=== PATIENT | female | born 1945 | race Two or more races ===

== ENCOUNTER 2019-09-21 09:33 | Inpatient (IN) | payer OTHER ==
--- NOTE | 2019-09-21 09:48 | PDOC ---
History of Present Illness - General Chief Complaint: Respiratory Stated Complaint: cough/bodyaches History Source: Patient Exam Limitations: Language Barrier ([id number]) - History of Present Illness Initial Comments: 74 yo F with a hx of Hep C, cirrhosis, pancytopenia, splenomegaly, and HTN who was recently admitted on 06/27/2019 with COVID 19+ with imaging consistent with b/l PNA presents to the emergency department with abdominal pain, leg pain, and SOB that has been ongoing since yesterday. Per the patient, she was admitted to [facility] with COVID symptoms. She since has not recovered per the patient. The patient has been home. She endorses having sharp stomach pain that is located throughout the abdomen that is constant with associative symptom of nausea, but denies vomiting. In addition, the patient had her last bowel movement today and denies hematochezia, diarrhea, constipation, and melena. She endorses SOB that worsens with laying down flat and having chest pain with deep breaths. Denies ta paris anti-coagulations. Allergies: NKDA Past History - Medical History Allergies/Adverse Reactions: Allergies Allergy/AdvReac Type Severity Reaction Status Date / Time No Known Allergies Allergy Verified 06/27/19 00:33 Home Medications: Ambulatory Orders Amino Acids/Protein Hydrolys [Prosource No Carb Liquid Pkt] 30 ml PO BID@0800,1730 #60 packet 07/16/19 Amlodipine Besylate [Norvasc -] 10 mg PO DAILY #30 tablet 07/16/19 Ascorbic Acid [Vitamin C -] 500 mg PO BID #60 tablet 07/16/19 Cholecalciferol (Vitamin D3) [Vitamin D3 -] 1,000 unit PO DAILY #30 tab 07/16/19 Collagenase Clostridium Hist. [Santyl -] 1 applic TP DAILY #1 tube 07/16/19 Docusate Sodium [Colace -] 100 mg PO TID #90 capsule 07/16/19 Multivitamins [Multivit ([facility] Formulary)] 1 tab PO DAILY #30 tab 07/16/19 Zinc Sulfate [Orazinc -] 220 mg PO DAILY #30 capsule 07/16/19 propRANOLol HCL [Inderal -] 10 mg PO TID #90 tablet 07/16/19 Albuterol Sulfate Inhaler - [Ventolin HFA Inhaler -] 2 puff IH Q4H PRN inhaler 09/25/19 Collagenase Clostridium Hist. [Santyl -] 1 applic TP DAILY tube 09/25/19 Fluconazole 400 mg PO DAILY #30 tablet 09/25/19 Nadolol [Corgard -] 20 mg PO DAILY #30 tablet 09/25/19 Pantoprazole Sodium [Protonix -] 40 mg PO DAILY tablet.ec 09/25/19 Polyethylene Glycol 3350 [Miralax 119 gm Btl -] 17 gm PO TID bottle 09/25/19 Valacyclovir HCl [Valtrex] 500 mg PO BID #60 tablet 09/25/19 levoFLOXacin [Levaquin -] 500 mg PO DAILY@0600 #30 tablet 09/25/19 COPD: No HTN: Yes Liver Disease: Yes - Surgical History Gastric Stapling: No Lung Surgery: No - Immunization History Immunization Up to Date: No - Psycho-Social/Smoking History Smoking History: Never smoked Have you smoked in the past 12 months: No Information on smoking cessation initiated: No - Substance Abuse Hx (Audit-C & DAST Scrn) How often the patient has a drink containing alcohol: Never Score: In Men: 4 or > Positive; In Women: 3 or > Positive: 0 Screen Result (Pos requires Nsg. Audit-10AR): Negative In the last yr the pt used illegal drug/Rx for NonMed reason: No Score: Yes response is considered Positive: 0 Screen Result (Positive result requires Nsg. DAST-10): Negative Review of Systems - Review of Systems Able to Perform ROS?: Yes Is the patient limited Spanish proficient: No Constitutional: Yes: Weakness. No: Chills, Diaphoresis, Fever HEENTM: No: Eye Pain, Ear Pain, Nose Pain, Throat Pain Respiratory: Yes: Shortness of Breath, SOB at Rest. No: Cough Cardiac (ROS): Yes: Edema (b/l lower extremity swelling). No: Chest Pain, Lightheadedness ABD/GI: Yes: Nausea, Abdominal cramping. No: Constipated, Diarrhea, Rectal Bleeding, Vomiting, Tarry Stools : No: Dysuria, Hematuria Musculoskeletal: No: Back Pain, Joint Pain, Neck Pain Integumentary: No: Rash Neurological: No: Headache Psychiatric: Yes: Change in Appetite (decreased appetite) Endocrine: No: Unexplained Weight Loss Hematologic/Lymphatic: No: Anemia *Physical Exam - Vital Signs Last Vital Signs Temp Pulse Resp BP Pulse Ox 98 F 71 16 151/75 96 09/21/19 09:36 09/21/19 09:36 09/21/19 09:36 09/21/19 09:36 09/21/19 09:36 - Physical Exam General Appearance: Yes: Nourished, Appropriately Dressed. No: Apparent Distress, Intoxicated HEENT: positive: EOMI, PRISCILLA, Normal Voice, Symmetrical, Pharynx Normal, Hearing Grossly Normal. negative: Pale Conjunctivae, Scleral Icterus (R), Scleral Icterus (L), Muffled/Hoarse voice, Pharyngeal Erythema, Tonsillar Exudate, Tonsillar Erythema, Nasal Congestion, Rhinorrhea, Sinus Tenderness, Excessive drooling Neck: positive: Trachea midline, Supple. negative: Tender, Lymphadenopathy (R), Lymphadenopathy (L), Tender lateral, Tender midline Respiratory/Chest: positive: Lungs Clear, Normal Breath Sounds. negative: Chest Tender, Respiratory Distress, Accessory Muscle Use, Crackles, Rales, Rhonchi, Stridor, Wheezing Cardiovascular: positive: Regular Rhythm, Regular Rate, S1, S2. negative: Systolic Murmur Gastrointestinal/Abdominal: positive: Normal Bowel Sounds, Tender (mild LLQ tenderness), Flat, Soft Lymphatic: negative: Adenopathy Musculoskeletal: positive: Normal Inspection. negative: CVA Tenderness, Vertebral Tenderness Extremity: positive: Normal Capillary Refill, Normal Range of Motion, Pelvis Stable, Swelling (bilateral le), Other (chronic wound noted on the plantar surface of the left foot. stage 2 ulcer). negative: Normal Inspection, Tender Integumentary: positive: Normal Color, Dry, Warm Neurologic: positive: debt collection specialist II-XII NML intact, Fully Oriented, Alert, Normal Mood/Affect, Normal Response, Motor Strength 5/5. negative: EOM Palsy, Sensory Deficit ED Treatment Course - LABORATORY CBC & Chemistry Diagram: 09/25/19 06:50 09/25/19 06:50 Medical Decision Making - Medical Decision Making 74 yo F with a hx of Hep C, cirrhosis, pancytopenia, splenomegaly, and HTN who was recently admitted on 06/27/2019 with COVID 19+ with imaging consistent with b/l PNA presents to the emergency department with abdominal pain, leg pain, and SOB that has been ongoing since yesterday. Initial vitals: Initial Vital Signs Temp Pulse Resp BP Pulse Ox 98 F 71 16 151/75 96 09/21/19 09:36 09/21/19 09:36 09/21/19 09:36 09/21/19 09:36 09/21/19 09:36 Work up; patient presents to the emergency department with multitude of symptoms that began yesterday ddx: DVT vs chf exacerbation vs pna vs covid related complications vs pe vs gastritis vs duodenitis vs diverticulitis vs colitis vs cystitis vs uti vs neph rolithiasis Laboratory Tests 09/21/19 09/21/19 09/21/19 10:36 10:44 10:49 WBC 1.6 L* RBC 3.21 L Hgb 9.2 L Hct 28.5 L D MCV 88.6 MCH 28.7 MCHC 32.4 RDW 16.6 H Plt Count 55 L MPV 7.1 L D Absolute Neuts (auto) 1.2 L Neutrophils % 73.2 Neutrophils % (Manual) 76.5 Band Neutrophils % 0.0 Lymphocytes % 13.4 D Lymphocytes % (Manual) 15.3 D Monocytes % 9.4 Monocytes % (Manual) 3 L Eosinophils % 3.3 Eosinophils % (Manual) 2.1 Basophils % 0.7 Basophils % (Manual) 0.0 Myelocytes % (Man) 2 D Promyelocytes % (Man) 0 Blast Cells % (Manual) 0 Nucleated RBC % 0 Metamyelocytes 1 D Hypochromia 0 Platelet Estimate Decreased Polychromasia 0 Poikilocytosis 0 Anisocytosis 0 Microcytosis 0 Macrocytosis 0 PT with INR INR D-Dimer 2616 H Sodium 141 Potassium 3.6 Chloride 110 H Carbon Dioxide 24 Anion Gap 7 L BUN 12.2 Creatinine 0.8 Est GFR (CKD-EPI)AfAm 83.00 Est GFR (CKD-EPI)NonAf 71.61 Random Glucose 116 H Lactic Acid Calcium 8.4 L Magnesium 2.3 Total Bilirubin 1.0 AST 39 H ALT 23 Alkaline Phosphatase 113 Creatine Kinase 61 Troponin I < 0.02 Total Protein 8.1 Albumin 3.0 L Urine Color Urine Appearance Urine pH Ur Specific Faber Urine Protein Urine Glucose (UA) Urine Ketones Urine Blood Urine Nitrite Urine Bilirubin Urine Urobilinogen Ur Leukocyte Esterase COVID-19 (ANAIS) 09/21/19 09/21/19 09/21/19 10:49 10:49 11:40 WBC RBC Hgb Hct MCV MCH MCHC RDW Plt Count MPV Absolute Neuts (auto) Neutrophils % Neutrophils % (Manual) Band Neutrophils % Lymphocytes % Lymphocytes % (Manual) Monocytes % Monocytes % (Manual) Eosinophils % Eosinophils % (Manual) Basophils % Basophils % (Manual) Myelocytes % (Man) Promyelocytes % (Man) Blast Cells % (Manual) Nucleated RBC % Metamyelocytes Hypochromia Platelet Estimate Polychromasia Poikilocytosis Anisocytosis Microcytosis Macrocytosis PT with INR 16.00 H INR 1.35 H D-Dimer Sodium Potassium Chloride Carbon Dioxide Anion Gap BUN Creatinine Est GFR (CKD-EPI)AfAm Est GFR (CKD-EPI)NonAf Random Glucose Lactic Acid 0.8 Calcium Magnesium Total Bilirubin AST ALT Alkaline Phosphatase Creatine Kinase Troponin I Total Protein Albumin Urine Color Yellow Urine Appearance Clear Urine pH 6.5 D Ur Specific Faber 1.020 Urine Protein 3+ H Urine Glucose (UA) Negative Urine Ketones Negative Urine Blood 1+ H Urine Nitrite Negative Urine Bilirubin Negative Urine Urobilinogen 0.2 Ur Leukocyte Esterase Negative COVID-19 (ANAIS) 09/21/19 15:18 WBC RBC Hgb Hct MCV MCH MCHC RDW Plt Count MPV Absolute Neuts (auto) Neutrophils % Neutrophils % (Manual) Band Neutrophils % Lymphocytes % Lymphocytes % (Manual) Monocytes % Monocytes % (Manual) Eosinophils % Eosinophils % (Manual) Basophils % Basophils % (Manual) Myelocytes % (Man) Promyelocytes % (Man) Blast Cells % (Manual) Nucleated RBC % Metamyelocytes Hypochromia Platelet Estimate Polychromasia Poikilocytosis Anisocytosis Microcytosis Macrocytosis PT with INR INR D-Dimer Sodium Potassium Chloride Carbon Dioxide Anion Gap BUN Creatinine Est GFR (CKD-EPI)AfAm Est GFR (CKD-EPI)NonAf Random Glucose Lactic Acid Calcium Magnesium Total Bilirubin AST ALT Alkaline Phosphatase Creatine Kinase Troponin I Total Protein Albumin Urine Color Urine Appearance Urine pH Ur Specific Faber Urine Protein Urine Glucose (UA) Urine Ketones Urine Blood Urine Nitrite Urine Bilirubin Urine Urobilinogen Ur Leukocyte Esterase COVID-19 (ANAIS) Not detected UA is negative for acute infection d-dimer is elevated negative troponin patient noted to be leukopenic, which is consistent with her previous lab findings duplex US is negative for DVT. CTAP shows hepatic cirrhosis with extensive cvarices with a 3x2.3 cm splenic artery aneurysm. 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 Chest CT shows a pericardial effusion in moderate size. This is mildly increased since her previous study. Mildly prominent main pulmonary diameter suggestive of increased pulmonary arterial pressure. Mildly increased bilateral upper lung field groundglass attenuation is noted. Patient to be admitted for lethargy in the setting of leukopenia and s/p covid infection. The patient will be admitted to received a CTA of the chest tomorrow. Dispo: Admit Discharge - Discharge Information Problems reviewed: Yes Clinical Impression/Diagnosis: COVID-19 virus infection - Follow up/Referral - Patient Discharge Instructions - Post Discharge Activity
[2019-09-21] MEDS ORDERED: ACETAMINOPHEN 325 MG TABLET (FP) PO ONE (10:33)
[2019-09-21 11:24] LABS: BASO % 0.7 % (0-2.0); EOS % 3.3 % (0-4.5); HEMATOCRIT 28.5 % (32.4-45.2); HEMOGLOBIN 9.2 GM/dL (10.7-15.3); LYMPH % 13.4 % (8-40); MCH 28.7 pg (25.7-33.7); MCHC 32.4 g/dl (32.0-36.0); MEAN CELL VOLUME 88.6 fl (80-96); MEAN PLT VOLUME 7.1 fl (7.5-11.1); MONO % 9.4 % (3.8-10.2); NEUT % 73.2 % (42.8-82.8); PLATELET COUNT 55 K/MM3 (134-434); RBC 3.21 M/mm3 (3.60-5.2); RDW 16.6 % (11.6-15.6)
[2019-09-21 11:29] LABS: WHITE BLOOD COUNT 1.6 K/mm3 (4.0-10.0)
[2019-09-21 11:33] LABS: INR 1.35 (0.83-1.09)
[2019-09-21 12:02] LABS: ALK PHOS 113 U/L (45-117); ANION GAP 7 MMOL/L (8-16); BLOOD UREA NITROGEN 12.2 mg/dL (7-18); CALCIUM 8.4 mg/dL (8.5-10.1); CHLORIDE 110 mmol/L (98-107); CO2 24 mmol/L (21-32); CREATININE 0.8 mg/dL (0.55-1.3); GLUCOSE,RANDOM 116 mg/dL (74-106); MAGNESIUM 2.3 mg/dL (1.8-2.4); POTASSIUM 3.6 mmol/L (3.5-5.1); SGOT/AST 39 U/L (15-37); SGPT/ALT 23 U/L (13-61); SODIUM 141 mmol/L (136-145); TOT PROT 8.1 g/dl (6.4-8.2)
[2019-09-21 13:47] LABS: PH,URINE 6.5 (5.0-8.0); URINE APPEARANCE CLEAR; URINE BILIRUBIN NEGATIVE (NEGATIVE); URINE COLOR YELLOW; URINE GLUCOSE (UA) NEGATIVE (NEGATIVE); URINE KETONE NEGATIVE (NEGATIVE); URINE NITRITE NEGATIVE (NEGATIVE); URINE PROTEIN 3+ (NEGATIVE); URINE UROBILINOGEN 0.2 mg/dL (0.2-1.0)
[2019-09-21 13:48] LABS: URINE LEUK ESTERASE NEGATIVE (NEGATIVE)
--- NOTE | 2019-09-21 14:15 | PDOC ---
Documentation entered by Brea Dillon SCRIBE, acting as scribe for Yoni Cheung MD. Yoni Cheung MD: This documentation has been prepared by the miguel angelibSantana barrera Maria, SCRIBE, under my direction and personally reviewed by me in its entirety. I confirm that the documentation accurately reflects all work, treatment, procedures, and medical decision making performed by me. Attending Attestation - Resident Resident Name: Ashutosh Cornejo - ED Attending Attestation I have performed the following: I have examined & evaluated the patient, The case was reviewed & discussed with the resident, I agree w/resident's findings & plan, Exceptions are as noted - HPI HPI: 09/21/19 10:34 The patient is a 74 year old female with a significant past medical history of HTN, Hep C, cirrhosis, pancytopenia, splenomegaly, COVID + 06/27/2019 who presents to the emergency department with 1 day of shortness of breath. As per patient, she reports endorsing orthopnea, and chest pain when she is SOB and takes deep breaths. Patient also endorses sharp, constant LUQ abdominal pain with associated nausea. Patient reports LBM was this morning. Patient notes edema and pain in her legs, R>L. Denies taking any blood thinners. Denies fevers or chills. She denies recent vomiting, diarrhea or constipation. She denies recent dysuria, frequency, urgency or hematuria. Allergies: NKA, NKDA Surgical History: None reported Social History: No toxic habits PCP: Dr. Clark - Physicial Exam PE: 09/21/19 12:35 GENERAL: The patient is awake, alert, and fully oriented, Nontoxic - in no acute distress. HEAD: Normocephalic, atraumatic. EYES: extraocular movements intact, sclera anicteric, conjunctiva clear. ENT: Normal voice, Moist mucous membranes. NECK: Normal range of motion, supple LUNGS: Breath sounds equal, clear to auscultation bilaterally. No wheezes, no rhonchi, no rales. HEART: Regular rate and rhythm, normal S1 and S2 without murmur, rub or gallop. ABDOMEN: splenomegaly, mild ttp to LLQ, no rebound/guardng, no cva tenderness EXTREMITIES: Normal range of motion, bl LE edema NEUROLOGICAL: No facial assymetry, Normal speech, moving all 4 extremiies spontneouly PSYCH: Normal mood, normal affect. SKIN: Warm, Dry, normal turgor, - Medical Decision Making 09/21/19 10:35 hx of hcv, covid, presents with worsening sob, abd pain, leg swelling for the past day. pt notes mild sob/pleuritic cp with inhallatin. chronic wound on plantar aspect of r foot not on ac L UQ tenderness venous insufficeincy/chronic chnges, stage 2 ulcer on plantar L foot 09/21/19 15:29 consider hypercoagulable disorder secondary to covid ct chest noted for Discharge - Discharge Information Problems reviewed: Yes Clinical Impression/Diagnosis: COVID-19 virus infection Condition: Stable Disposition: HOME - Follow up/Referral - Patient Discharge Instructions - Post Discharge Activity
[2019-09-21 14:58] LABS: ANISOCYTOSIS 0; MACROCYTOSIS 0; PLATELET ESTIMATE DECREASED
--- NOTE | 2019-09-21 16:32 | HP ---
Admitting History and Physical - Primary Care Physician PCP: Gemma Carrion - Admission Chief Complaint: sob and abd pain for 1 day History of Present Illness: 74 yo F with a hx of Hep C, cirrhosis, pancytopenia, splenomegaly, and HTN who was recently admitted on 06/27/2019 with COVID 19+ with imaging consistent with b/l PNA presents to the emergency department with abdominal pain, leg pain, and SOB that has been ongoing since yesterday. Per the patient, she was admitted to [facility] with COVID symptoms. She since has not recovered per the patient. The patie nt has been home. She endorses having sharp stomach pain that is located pain in the stomach? yes. sharp pain, throughout the stomach, since yesterday, pain has constant, nausea positive, vomiting negative. dysuria? no, hematuyuria? no. diarrhea? no when is last bowel movement-today.no blood chest pain? no. only when feeling sob. sob gets worse when she lays down. chest pain with deep breaths? yes. warm sensation in legs warm sensation i n the stomach SOB swollen in the throat. symptoms have been ongoing for 1 day. leg right is warmer than the left. they feel swollen and pain. taking blood thinners? no History Source: Family Member, Medical Record Limitations to Obtaining History: Language Barrier - Past Medical History Cardiovascular: Yes: HTN Hepatobiliary: Yes: Cirrhosis Infectious Disease: Yes: Other (covid 19 in june 2019) - Smoking History Smoking history: Never smoked Have you smoked in the past 12 months: No - Alcohol/Substance Use Hx Alcohol Use: No Home Medications - Allergies Allergies/Adverse Reactions: Allergies Allergy/AdvReac Type Severity Reaction Status Date / Time No Known Allergies Allergy Verified 06/27/19 00:33 - Home Medications Home Medications: Ambulatory Orders Amino Acids/Protein Hydrolys [Prosource No Carb Liquid Pkt] 30 ml PO BID@0800,1730 #60 packet 07/16/19 Amlodipine Besylate [Norvasc -] 10 mg PO DAILY #30 tablet 07/16/19 Ascorbic Acid [Vitamin C -] 500 mg PO BID #60 tablet 07/16/19 Cholecalciferol (Vitamin D3) [Vitamin D3 -] 1,000 unit PO DAILY #30 tab 07/16/19 Collagenase Clostridium Hist. [Santyl -] 1 applic TP DAILY #1 tube 07/16/19 Docusate Sodium [Colace -] 100 mg PO TID #90 capsule 07/16/19 Multivitamins [Multivit ([facility] Formulary)] 1 tab PO DAILY #30 tab 07/16/19 Zinc Sulfate [Orazinc -] 220 mg PO DAILY #30 capsule 07/16/19 propRANOLol HCL [Inderal -] 10 mg PO TID #90 tablet 07/16/19 Family Medical History Family History: Denies Review of Systems - Review of Systems Constitutional: reports: Lethargy, Malaise Neck: reports: No Symptoms Cardiovascular: reports: Shortness of Breath Respiratory: reports: SOB, SOB on Exertion Gastrointestinal: reports: Abdominal Pain Musculoskeletal: reports: Other (L foot wound) Neurological: reports: No Symptoms Endocrine: reports: No Symptoms Physical Examination Vital Signs: Vital Signs Temperature 98 F 09/21/19 09:36 Pulse Rate 71 09/21/19 09:36 Respiratory Rate 16 09/21/19 09:36 Blood Pressure 151/75 09/21/19 09:36 O2 Sat by Pulse Oximetry (%) 96 09/21/19 09:36 Constitutional: Yes: Well Nourished, No Distress, Calm Eyes: Yes: Conjunctiva Clear, EOM Intact HENT: Yes: Atraumatic, Normocephalic Neck: Yes: Supple, Trachea Midline Cardiovascular: Yes: Regular Rate and Rhythm Respiratory: Yes: Regular, CTA Bilaterally, Other (dec BS bibasilar) Extremities: Yes: Other (scattered scars from the chronic wounds,) Edema: Yes Edema: LLE: 1+, RLE: 1+ Peripheral Pulses WNL: Yes Wound/Incision: Yes: Other (L plantar area wound, stage 2 with granulation tissue, no dc, and pressure area on the heal without open wound,) Labs: CBC, BMP 09/21/19 10:49 09/21/19 10:36 Imaging - Results Cat Scan: Report Reviewed (In comparison to CT performed on 06/27/2019 note is again made of hepatic cirrhosis with associated marked splenomegaly, small a mount of ascites, extensive varices. An approximately 3 x 2.3 cm patent splenic artery aneurysm is seen adjacent to the splenic hilum. Surgical consultation is suggested, nonemergent versus emergent as clinically indicated. Cholelithiasis. Note is again made of mild dilatation of the right renal collecting system which may be due to a mild UPJ obstruction. Periodic imaging surveillance is suggested. Colonic diverticulosis. Note is again made of several mildly prominent bilateral inguinal lymph nodes. Findings are noted within the partially imaged lower chest as discussed On a dedicated chest CT exam performed the same day.), Image Reviewed Assessment/Plan 74 yo F with a hx of Hep C, cirrhosis, pancytopenia, splenomegaly, and HTN who was recently admitted on 06/27/2019 with COVID 19+ with imaging consistent with b/l PNA presents to the emergency department with abdominal pain, leg pain, and SOB that has been ongoing since yesterday 1. SOB, rule out sec to worsening of the pericardial effusion had covd 19 pos in june and had pna, ct chest shows resolution of the pna, cardiomegaly,. get 2 d echo,. get cardiac markers, and also ekg, nsr 60 bpm , no acute st changes, 2.sob rule PE, hgh d dimer, but lower than aron will get CTA case discussed with dr Terry and will even thoug pt high risk of bleeding bc of the thrombocytopenia,will empirically start the lovenox. high risk of PE with h/o covid 19, venous doppler negative, check stool ob monitor for the bleeding, 3.h/o covid 19 pna in june was admitted here was admitted here, will get the pulmonology consult. 4. h/o cirrhosis and abd varices on ct scan continue propranolol will start protonix, GI consult, 5. ct abd shows. dilataion of the R ranal collecting ducts, will see , possible vpj obstruction. likely cause of the abd pain, Urine pos for the blood, and rbcs, [address] scan splenic artery aneurysm, 3/2.3 cm, surgical consult suggested, dr byers/ vascular 7.L foot wound santyl and vasc surgery consult, dvt prophylaxis, use scds, no A/c high risk of the bleeding, Visit type - Emergency Visit Emergency Visit: Yes ED Registration Date: 09/21/19 Care time: The patient presented to the Emergency Department on the above date and was hospitalized for further evaluation of their emergent condition. - New Patient This patient is new to me today: Yes Date on this admission: 09/21/19 - Critical Care Critical Care patient: No
[2019-09-21] MEDS ORDERED: ENOXAPARIN NA (PORCINE) 100 MG/1 ML DISP.SYRIN SQ SCH (17:30)
[2019-09-21] MEDS ORDERED: ENOXAPARIN NA (PORCINE) 60 MG/0.6 ML DISP.SYRIN SQ ONE (18:07)
[2019-09-21] MEDS: ENOXAPARIN NA (PORCINE) 60 MG/0.6 ML DISP.SYRIN SQ SCH (18:08)
[2019-09-21] MEDS: AMINO ACIDS/PROTEIN HYDROLYS 30 ML LIQUID.PKT PO SCH (18:39)
[2019-09-21] MEDS ORDERED: PT OWN MED DRAWER 7, Y5N ONE (22:51)
[2019-09-21] MEDS: DOCUSATE SODIUM 100 MG CAPSULE (FP) PO SCH (22:55)
[2019-09-21] MEDS: ASCORBIC ACID 500 MG TABLET (FP) PO SCH (22:55)
[2019-09-22 02:29] VITALS: BMI 26.5
[2019-09-22] MEDS: DOCUSATE SODIUM 100 MG CAPSULE (FP) PO SCH ×3 (06:14→21:14)
[2019-09-22] MEDS: ACETAMINOPHEN 325 MG TABLET (FP) PO PRN ×2 (06:15→21:14)
[2019-09-22] MEDS: ENOXAPARIN NA (PORCINE) 60 MG/0.6 ML DISP.SYRIN SQ SCH (06:45)
[2019-09-22 06:56] LABS: ALBUMIN 2.4 g/dl (3.4-5.0); ANION GAP 8 MMOL/L (8-16); BLOOD UREA NITROGEN 10.2 mg/dL (7-18); CALCIUM 7.9 mg/dL (8.5-10.1); CHLORIDE 110 mmol/L (98-107); CO2 24 mmol/L (21-32); CREATININE 0.8 mg/dL (0.55-1.3); GLUCOSE,RANDOM 90 mg/dL (74-106); POTASSIUM 3.5 mmol/L (3.5-5.1); SGOT/AST 30 U/L (15-37); SGPT/ALT 20 U/L (13-61); SODIUM 142 mmol/L (136-145)
[2019-09-22 07:03] LABS: BASO % 0.4 % (0-2.0); EOS % 3.5 % (0-4.5); HEMATOCRIT 25.6 % (32.4-45.2); HEMOGLOBIN 8.3 GM/dL (10.7-15.3); LYMPH % 14.8 % (8-40); MCH 28.7 pg (25.7-33.7); MCHC 32.5 g/dl (32.0-36.0); MEAN CELL VOLUME 88.2 fl (80-96); MEAN PLT VOLUME 7.7 fl (7.5-11.1); MONO % 14.1 % (3.8-10.2); NEUT % 67.2 % (42.8-82.8); PLATELET COUNT 47 K/MM3 (134-434); RDW 16.2 % (11.6-15.6)
[2019-09-22 07:06] LABS: ALK PHOS 93 U/L (45-117); TOT PROT 6.5 g/dl (6.4-8.2)
[2019-09-22 07:07] LABS: WHITE BLOOD COUNT 1.4 K/mm3 (4.0-10.0)
[2019-09-22] MEDS ORDERED: ALBUTEROL SO4 HFA INHALER IH PRN (07:30)
[2019-09-22 09:16] LABS: ANISOCYTOSIS 1+; MACROCYTOSIS 0; PLATELET ESTIMATE DECREASED
[2019-09-22] MEDS ORDERED: PT OWN MED DRAWER 7, Y5N ONE ×2 (09:22→21:10)
[2019-09-22] MEDS: AMINO ACIDS/PROTEIN HYDROLYS 30 ML LIQUID.PKT PO SCH ×2 (09:47→18:25)
[2019-09-22] MEDS: amLODIPine BESYLATE 10 MG TABLET (FP) PO SCH (09:47)
[2019-09-22] MEDS: ASCORBIC ACID 500 MG TABLET (FP) PO SCH ×2 (09:47→21:14)
[2019-09-22] MEDS: PANTOPRAZOLE 40 MG TABLET PO SCH (09:47)
--- NOTE | 2019-09-22 10:06 | CON.PULM ---
Consult Consult Specialty:: PULMONARY Referred by:: ORIN Reason for Consultation:: R/O PE. SOB - History of Present Illness Chief Complaint: LEARY/BATHING/WALKING/TALKING History of Present Illness: The patient is a 74 year old female with a significant past medical history of HTN, Hep C, cirrhosis, pancytopenia, splenomegaly, COVID + 06/27/2019 who presents to the emergency department with 1 day of shortness of breath. As per patient, she reports endorsing orthopnea, and chest pain when she is SOB and takes deep breaths. Patient also endorses sharp, constant LUQ abdominal pain with associated nausea. Patient notes edema and pain in her legs, R>L. Denies taking any blood thinners. Denies fevers or chills. She denies recent vomiting, diarrhea or constipation. She denies recent dysuria, frequency, urgency or hematuria. History is obtained mainly from chart due to language barrier. 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 Cardio/Vascular: Yes: HTN, Other (cardiomegaly/pericardial effusion) Pulmonary: Yes: Other (covid pneumonitis june) Gastrointestinal: Yes: Esophageal Varices, Other (hep c/cirrhosis/varicies/splenomegaly/ascites) Hepatobiliary: Yes: Cirrhosis Renal/: No: Renal Failure Reproductive: Yes: Postmenopausal ...: No Heme/Onc: Yes: Anemia, Thrombocytopenia, Other (leukopenia) Infectious Disease: Yes: Other (covid 19 in june 2019) Psych: No: Addictions Musculoskeletal: Yes: Osteoarthritis Rheumatology: No: Rheumatoid Arthritis Endocrine: No: Diabetes Mellitus, Hypothyroidism - Alcohol/Substance Use Hx Alcohol Use: No History of Substance Use: reports: None - Smoking History Smoking history: Never smoked Have you smoked in the past 12 months: No - Social History ADL: Independent Place of : Other History of Recent Travel: No Home Medications - Allergies Allergies/Adverse Reactions: Allergies Allergy/AdvReac Type Severity Reaction Status Date / Time No Known Allergies Allergy Verified 06/27/19 00:33 - Home Medications Home Medications: Ambulatory Orders Amino Acids/Protein Hydrolys [Prosource No Carb Liquid Pkt] 30 ml PO BID@0800,1730 #60 packet 07/16/19 Amlodipine Besylate [Norvasc -] 10 mg PO DAILY #30 tablet 07/16/19 Ascorbic Acid [Vitamin C -] 500 mg PO BID #60 tablet 07/16/19 Cholecalciferol (Vitamin D3) [Vitamin D3 -] 1,000 unit PO DAILY #30 tab 07/16/19 Collagenase Clostridium Hist. [Santyl -] 1 applic TP DAILY #1 tube 07/16/19 Docusate Sodium [Colace -] 100 mg PO TID #90 capsule 07/16/19 Multivitamins [Multivit ([facility])] 1 tab PO DAILY #30 tab 07/16/19 Zinc Sulfate [Orazinc -] 220 mg PO DAILY #30 capsule 07/16/19 propRANOLol HCL [Inderal -] 10 mg PO TID #90 tablet 07/16/19 Latanoprost 0.005% Eye Drop HS 09/22/19 Family Medical History Family History: Unable to Obtain Review of Systems - Review of Systems Constitutional: denies: Fever, Night Sweats, Unintentional Wgt. Loss Eyes: denies: Blind Spots HENT: denies: Difficult Swallowing Neck: denies: Decreased ROM Cardiovascular: reports: Edema, Shortness of Breath. denies: Chest Pain, Palpit ations Respiratory: reports: Exercise Intolerance, Orthopnea, SOB, SOB on Exertion. denies: Hemoptysis, Wheezing Gastrointestinal: reports: Abdominal Pain. denies: Diarrhea, Rectal Bleeding, Vomiting Genitourinary: denies: Burning Breasts: reports: No Symptoms Reported Musculoskeletal: denies: Back Pain Integumentary: reports: Other (b/l lowewr ext venous insuff) Neurological: reports: No Symptoms Endocrine: reports: No Symptoms Psychiatric: reports: No Symptoms Physical Exam Vital Sings: Vital Signs Temperature 97.4 F L 09/22/19 10:02 Pulse Rate 65 09/22/19 10:02 Respiratory Rate 18 09/22/19 10:02 Blood Pressure 123/58 L 09/22/19 10:02 O2 Sat by Pulse Oximetry (%) 99 09/21/19 22:00 Constitutional: Yes: Calm Eyes: Yes: EOM Intact HENT: Yes: Normocephalic Neck: Yes: Trachea Midline Cardiovascular: Yes: Regular Rate and Rhythm, S1, S2 Respiratory: Yes: Diminished Gastrointestinal: Yes: Splenomegaly, Tenderness, Epigastrium, Other (ascites) Renal/: Yes: WNL Breast(s): Yes: WNL Musculoskeletal: No: Muscle Pain Extremities: Yes: Erythema, Other (b/l lower ext venous insuff) Integumentary: Yes: Venous Stasis Changes. No: Jaundice Neurological: Yes: Alert Psychiatric: Yes: Alert Labs: CBC, BMP 09/22/19 05:40 09/22/19 05:40 rest reviewed Imaging - Results Chest X-ray: Report Reviewed, Image Reviewed Cat Scan: Report Reviewed, Image Reviewed Ultrasound: Report Reviewed EKG: Report Reviewed, Image Reviewed Problem List - Problems (1) Cirrhosis of liver with ascites Code(s): K74.60 - UNSPECIFIED CIRRHOSIS OF LIVER; R18.8 - OTHER ASCITES (2) HCV (hepatitis C virus) Code(s): B19.20 - UNSPECIFIED VIRAL HEPATITIS C WITHOUT HEPATIC COMA (3) Pancytopenia Code(s): D61.818 - OTHER PANCYTOPENIA (4) Wound of left foot Code(s): S91.302A - UNSPECIFIED OPEN WOUND, LEFT FOOT, INITIAL ENCOUNTER (5) COVID-19 virus infection Code(s): U07.1 - COVID POSITIVE Assessment/Plan Resolving covid pneumonitis on ct chest as compared to 06/2019 ct Low index of suspicion for pe given clinical history/adequate oxygenation on minimal fio2/lack of tachycardia Pancytopenia due to cirrhosis/splenomegaly and presence of varicies make anticoagulation risky In view of enlarging pericardial effusion would also refrain from anticoagulation Cirrhosis imparts autoanticoagulation with pronlonged inr/pt Pericardial effusion with cardiomegaly likely causing majority of symptoms would check echo/order cardiac consult avoid fluid depletion/watch for signs of tamponade may need pericardialcentesis Sabina Malin MD
--- NOTE | 2019-09-22 10:31 | PN ---
Progress Note (short form) - Note Progress Note: Patient is much better no shortness of breath at rest today no fever no chills. She ate well had a bowel movement. No chest pain or any other symptoms. Vital Signs Period Temp Pulse Resp BP Sys/Nava Pulse Ox Last 24 Hr 97.4 F-98.4 F 60-83 17-18 123-150/57-76 95-99 Patient is comfortable HEENT normal Neck supple no JVD Lungs bilateral coarse breath sounds Abdomen nontender no organomegaly bowel sounds normal Extremities no edema no cyanosis normal pulses Neurologically he is alert awake oriented, nonfocal Skin no rash noted Heart examination shows she has distant heart sounds CBC, BMP 09/22/19 05:40 09/22/19 05:40 Chest CAT scan noted Pulmonary consult noted agreed thank you Shortness of breath possibly due to pericardial effusion also pneumonia which is getting better We will continue oxygen nebulizers and pulmonary consult noted thank you. Cardiac consult called with Dr. Kelley. History of cirrhosis continue to watch on current medication Pancytopenia it is multifocal due to cirrhosis hepatitis C and splenomegaly will watch Wound on the foot will do Santyl dressing every day She is not a candidate for chemical anticoagulation for DVT prophylaxis because of low platelet count and also she has varices due to cirrhosis. Today activity moved out of bed. Visit type - Emergency Visit Emergency Visit: Yes ED Registration Date: 09/21/19 Care time: The patient presented to the Emergency Department on the above date and was hospitalized for further evaluation of their emergent condition. - New Patient This patient is new to me today: Yes Date on this admission: 09/22/19 - Critical Care Critical Care patient: No - Discharge Referral Referred to [facility] Med P.C.: No
--- NOTE | 2019-09-22 11:34 | CON.CARD ---
Consult Consult Specialty:: cardiology Reason for Consultation:: pericardial effusion - History of Present Illness History of Present Illness: Ms. Willie Espino is a 74 year old female (b. [place]) with a past medical history of HTN, Hep C, cirrhosis, pancytopenia, splenomegaly/parasplenic and esophageal varices, COVID + 06/27/2019, pericardial effusion (moderate amount noted on CT chest 06/2019), left foot ulcer (difficult to heal for several years), who presents to the emergency department with 1 day of shortness of breath. As per patient, she reports endorsing orthopnea, and lower substernal chest and diffuse abdominal pain when she is SOB and takes deep breaths. Patient also endorses sharp, constant LUQ abdominal pain with associated nausea. Patient reports LBM was this morning. Patient notes edema and pain in her legs, R>L. Denies taking any blood thinners. Denies fevers or chills. She denies recent vomiting, diarrhea or constipation. She denies recent dysuria, frequency, urgency or hematuria. Allergies: NKA, NKDA Surgical History: None reported Social History: No toxic habits PCP: Dr. 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 Cardio/Vascular: Yes: HTN, Other (cardiomegaly/pericardial effusion) Pulmonary: Yes: Other (covid pneumonitis june) Gastrointestinal: Yes: Esophageal Varices, Other (hep c/cirrhosis/varicies/splenomegaly/ascites) Hepatobiliary: Yes: Cirrhosis Renal/: No: Renal Failure ...: No Infectious Disease: Yes: Other (covid 19 in june 2019) Psych: No: Addictions Musculoskeletal: Yes: Osteoarthritis Rheumatology: No: Rheumatoid Arthritis Endocrine: No: Diabetes Mellitus, Hypothyroidism - Alcohol/Substance Use Hx Alcohol Use: No History of Substance Use: reports: None - Smoking History Smoking history: Never smoked Have you smoked in the past 12 months: No - Social History ADL: Independent History of Recent Travel: No Home Medications - Allergies Allergies/Adverse Reactions: Allergies Allergy/AdvReac Type Severity Reaction Status Date / Time No Known Allergies Allergy Verified 06/27/19 00:33 - Home Medications Home Medications: Ambulatory Orders Amino Acids/Protein Hydrolys [Prosource No Carb Liquid Pkt] 30 ml PO BID@0800,1730 #60 packet 07/16/19 Amlodipine Besylate [Norvasc -] 10 mg PO DAILY #30 tablet 07/16/19 Ascorbic Acid [Vitamin C -] 500 mg PO BID #60 tablet 07/16/19 Cholecalciferol (Vitamin D3) [Vitamin D3 -] 1,000 unit PO DAILY #30 tab 07/16/19 Collagenase Clostridium Hist. [Santyl -] 1 applic TP DAILY #1 tube 07/16/19 Docusate Sodium [Colace -] 100 mg PO TID #90 capsule 07/16/19 Multivitamins [Multivit ([facility] Formul[facility])] 1 tab PO DAILY #30 tab 07/16/19 Zinc Sulfate [Orazinc -] 220 mg PO DAILY #30 capsule 07/16/19 propRANOLol HCL [Inderal -] 10 mg PO TID #90 tablet 07/16/19 Latanoprost 0.005% Eye Drop HS 09/22/19 - Risk Factors Known Risk Factors: Yes: Age, Hypercholesterolemia, Hypertension, Physical Inactivity, Other (liver cirrhosis; pericardial effusion) Vital Signs: Vital Signs Temperature 97.4 F L 09/22/19 10:02 Pulse Rate 65 09/22/19 10:02 Respiratory Rate 18 09/22/19 10:02 Blood Pressure 123/58 L 09/22/19 10:02 O2 Sat by Pulse Oximetry (%) 99 09/21/19 22:00 Constitutional: Yes: Calm Eyes: Yes: WNL HENT: Yes: Pharyngeal Erythema Neck: Yes: WNL Respiratory: Yes: Diminished Gastrointestinal: Yes: Ascites, Distention. No: Tenderness Renal/: No: Anuria Cardiovascular: Yes: Regular Rate and Rhythm Heart Sounds: Yes: S1, S2 Murmur: Yes: Systolic Murmur, Grade 1 Musculoskeletal: Yes: Muscle Weakness Extremities: Yes: Cool Edema: No Peripheral Pulses WNL: Yes Integumentary: Yes: Other (Left foot dressed, dry) Neurological: Yes: Alert, Oriented, Weakness Psychiatric: Yes: Alert, Oriented - Other Data Labs, Other Data: CBC, BMP 09/22/19 05:40 09/22/19 05:40 INR, PTT INR 1.35 (0.83-1.09) H 09/21/19 10:49 Troponin, BNP 09/21/19 09/22/19 10:36 05:40 Troponin I < 0.02 < 0.02 Troponin, BNP 09/21/19 09/22/19 10:36 05:40 Troponin I < 0.02 < 0.02 Abnormal Lab Results 09/22/19 09/22/19 09/22/19 05:40 05:40 05:40 WBC 1.4 L* RBC 2.90 L Hgb 8.3 L Hct 25.6 L RDW 16.2 H Plt Count 47 L Absolute Neuts (auto) 0.9 L Monocytes % 14.1 H Chloride 110 H Hemoglobin A1c % < 3.5 L Calcium 7.9 L Albumin 2.4 L TSH 4.07 H Echo: Pending Imaging - Results Chest X-ray: Image Reviewed EKG: Image Reviewed Assessment/Plan CT chest: at least moderate sized pericardial effusion, which may be mildly increased from 07/15/2019 CT. Hx COVID HCV (?transfusion-related); Liver cirrhosis; ascites; parasplenal and esophageal varices pancytopenia LLE ulcer Plan: COVID retest results pending. Hemodynamics stable presently. TNI < 0.02 x 3. Await ECHO for LVEF, pericardial fluid status, right-sided findings. F/u with knitting inspector and liquor department manager.
[2019-09-22] MEDS: COLLAGENASE CLOSTRIDIUM HIST. 30 GRAMS TUBE TP SCH (11:57)
--- NOTE | 2019-09-22 12:21 | CON.GI ---
Consult Consult Specialty:: Gastroenterology ( covering Dr Sanchez) Referred by:: Dr Gemma Carrion Reason for Consultation:: Abd pain - History of Present Illness Chief Complaint: Chest pain, SOB and abdominal pain History of Present Illness: 74F presents with SOB and chest pain but also c/o abdominal pain. The pain is postprandial and causes nausea but no vomiting. The history is obtained using [employer] log chain feeder #[id number]. She came to the [facility] from 3 years ago and has been followed at [facility]. She was found to have HCV which was related to a transfusion in for "pain". The HCV was cured but she already had cirrhosis and required rubber band ligation of varices at [facility]. She also had a colonoscopy there which she believes was normal. She denies being told of ulcer or gallstones. She was treated here for COVID 19 pneumonia in 07/14 and at that time already exhibited pancytopenia for which she was evaluated by Dr. Manjarrez. Her CT reveals minimal ascites, a splenic artery aneurysm and perisplenic and esophageal varices with splenomegaly, and gallstones but no inflammatory foci. - History Source History Provided By: Patient Limitations to Obtaining History: Language Barrier - Past Medical History Cardio/Vascular: Yes: HTN, Other (cardiomegaly/pericardial effusion) Pulmonary: Yes: Other (covid pneumonitis 07/14) Gastrointestinal: Yes: Constipation, Esophageal Varices, Other (hep c/cirrhosis/varicies/splenomegaly/ascites) Hepatobiliary: Yes: Cirrhosis (related to HCV), Cholelithiasis, Hepatitis C (acquired by transfusion in , cured at [facility] ) ...: No Heme/Onc: Yes: Anemia, Thrombocytopenia, Other (leukopenia) Infectious Disease: Yes: Other (covid 19 in june 2019) Psych: Yes: Addictions Musculoskeletal: Yes: Osteoarthritis Endocrine: Yes: Other (adrenal adenoma) - Past Surgical History Past Surgical History: Yes: Colonoscopy, Upper Endoscopy - Alcohol/Substance Use Hx Alcohol Use: No History of Substance Use: reports: None - Smoking History Smoking history: Never smoked Have you smoked in the past 12 months: No - Social History Usual Living Arrangement: With Child ADL: Independent Place of : Other ([place]) Came to [place]year[place] 3 years ago History of Recent Travel: No Home Medications - Allergies Allergies/Adverse Reactions: Allergies Allergy/AdvReac Type Severity Reaction Status Date / Time No Known Allergies Allergy Verified 06/27/19 00:33 - Home Medications Home Medications: Ambulatory Orders Amino Acids/Protein Hydrolys [Prosource No Carb Liquid Pkt] 30 ml PO BID@0800,1730 #60 packet 07/16/19 Amlodipine Besylate [Norvasc -] 10 mg PO DAILY #30 tablet 07/16/19 Ascorbic Acid [Vitamin C -] 500 mg PO BID #60 tablet 07/16/19 Cholecalciferol (Vitamin D3) [Vitamin D3 -] 1,000 unit PO DAILY #30 tab 07/16/19 Collagenase Clostridium Hist. [Santyl -] 1 applic TP DAILY #1 tube 07/16/19 Docusate Sodium [Colace -] 100 mg PO TID #90 capsule 07/16/19 Multivitamins [Multivit ([facility])] 1 tab PO DAILY #30 tab 07/16/19 Zinc Sulfate [Orazinc -] 220 mg PO DAILY #30 capsule 07/16/19 propRANOLol HCL [Inderal -] 10 mg PO TID #90 tablet 07/16/19 Latanoprost 0.005% Eye Drop HS 09/22/19 Family Medical History Family Hx Cardiac Disorders: Father ( mi age 65) Other Family History: no cancer. mother lived into her 70s Review of Systems Unable to obtain ROS, reason: language barrier Physical Exam-GI Vital Signs: Vital Signs Temperature 97.4 F L 09/22/19 10:02 Pulse Rate 65 09/22/19 10:02 Respiratory Rate 18 09/22/19 10:02 Blood Pressure 123/58 L 09/22/19 10:02 O2 Sat by Pulse Oximetry (%) 99 09/21/19 22:00 CBC,CMP WBC 1.4 K/mm3 (4.0-10.0) L* 09/22/19 05:40 RBC 2.90 M/mm3 (3.60-5.2) L 09/22/19 05:40 Hgb 8.3 GM/dL (10.7-15.3) L 09/22/19 05:40 Hct 25.6 % (32.4-45.2) L 09/22/19 05:40 MCV 88.2 fl (80-96) 09/22/19 05:40 MCH 28.7 pg (25.7-33.7) 09/22/19 05:40 MCHC 32.5 g/dl (32.0-36.0) 09/22/19 05:40 RDW 16.2 % (11.6-15.6) H 09/22/19 05:40 Plt Count 47 K/MM3 (134-434) L 09/22/19 05:40 MPV 7.7 fl (7.5-11.1) 09/22/19 05:40 Absolute Neuts (auto) 0.9 K/mm3 (1.5-8.0) L 09/22/19 05:40 Neutrophils % 67.2 % (42.8-82.8) 09/22/19 05:40 Neutrophils % (Manual) 79.4 % (42.8-82.8) 09/22/19 05:40 Band Neutrophils % 1.0 % 09/22/19 05:40 Lymphocytes % 14.8 % (8-40) 09/22/19 05:40 Lymphocytes % (Manual) 11.4 % (8-40) D 09/22/19 05:40 Monocytes % 14.1 % (3.8-10.2) H 09/22/19 05:40 Monocytes % (Manual) 7 % (3.8-10.2) D 09/22/19 05:40 Eosinophils % 3.5 % (0-4.5) 09/22/19 05:40 Eosinophils % (Manual) 1.0 % (0-4.5) 09/22/19 05:40 Basophils % 0.4 % (0-2.0) 09/22/19 05:40 Basophils % (Manual) 0.0 % (0-2.0) 09/22/19 05:40 Myelocytes % (Man) 0 % (0-2) D 09/22/19 05:40 Promyelocytes % (Man) 0 % (0-2) 09/22/19 05:40 Blast Cells % (Manual) 0 % (0-0) 09/22/19 05:40 Nucleated RBC % 0 % (0-0) 09/22/19 05:40 Metamyelocytes 0 % (0-2) D 09/22/19 05:40 Hypochromia 0 09/22/19 05:40 Platelet Estimate Decreased 09/22/19 05:40 Polychromasia 1+ 09/22/19 05:40 Poikilocytosis 0 09/21/19 10:49 Anisocytosis 1+ 09/22/19 05:40 Microcytosis 0 09/21/19 10:49 Macrocytosis 0 09/22/19 05:40 Sodium 142 mmol/L (136-145) 09/22/19 05:40 Potassium 3.5 mmol/L (3.5-5.1) 09/22/19 05:40 Chloride 110 mmol/L (98-107) H 09/22/19 05:40 Carbon Dioxide 24 mmol/L (21-32) 09/22/19 05:40 Anion Gap 8 MMOL/L (8-16) 09/22/19 05:40 BUN 10.2 mg/dL (7-18) 09/22/19 05:40 Creatinine 0.8 mg/dL (0.55-1.3) 09/22/19 05:40 Est GFR (CKD-EPI)AfAm 83.00 09/22/19 05:40 Est GFR (CKD-EPI)NonAf 71.61 09/22/19 05:40 Random Glucose 90 mg/dL (74-106) 09/22/19 05:40 Hemoglobin A1c % < 3.5 % (4.2-6.3) L 09/22/19 05:40 Lactic Acid 0.8 mmol/L (0.4-2.0) 09/21/19 10:49 Calcium 7.9 mg/dL (8.5-10.1) L 09/22/19 05:40 Magnesium 2.3 mg/dL (1.8-2.4) 09/21/19 10:36 Total Bilirubin 1.0 mg/dL (0.2-1) 09/22/19 05:40 AST 30 U/L (15-37) 09/22/19 05:40 ALT 20 U/L (13-61) 09/22/19 05:40 Alkaline Phosphatase 93 U/L (45-117) 09/22/19 05:40 Creatine Kinase 48 U/L (26-192) 09/22/19 05:40 Troponin I < 0.02 ng/ml (0.00-0.05) 09/22/19 05:40 Total Protein 6.5 g/dl (6.4-8.2) 09/22/19 05:40 Albumin 2.4 g/dl (3.4-5.0) L 09/22/19 05:40 TSH 4.07 uIU/ml (0.358-3.74) H 09/22/19 05:40 Current Medications Generic Name Dose Route Start Last Admin Trade Name Freq PRN Reason Stop Dose Admin Acetaminophen 650 mg 09/21/19 16:49 09/22/19 06:15 Tylenol - PO 650 mg Q6H PRN Administration Fever Or Pain Albuterol Sulfate 2 puff 09/22/19 07:30 Ventolin Hfa Inhaler - IH Q4H PRN SHORT OF BREATH/WHEEZING Amino Acids 30 ml 09/21/19 17:30 09/22/19 09:47 Prosource No Carb Liquid Pkt PO 30 ml BID@0800,1730 REJI Administration Amlodipine Besylate 10 mg 09/22/19 10:00 09/22/19 09:47 Norvasc - PO 10 mg DAILY REJI Administration Ascorbic Acid 500 mg 09/21/19 22:00 09/22/19 09:47 Vitamin C - PO 500 mg BID REJI Administration Collagenase 1 applic 09/22/19 10:15 09/22/19 11:57 Santyl - TP 1 applic DAILY REJI Administration Protocol Docusate Sodium 100 mg 09/21/19 22:00 09/22/19 06:14 Colace - PO 100 mg TID REJI Administration Pantoprazole Sodium 40 mg 09/22/19 10:00 09/22/19 09:47 Protonix - PO 40 mg DAILY REJI Administration Propranolol HCl 10 mg 09/21/19 22:00 09/22/19 06:15 Inderal - PO 10 mg TID REJI Administration Constitutional: Yes: Calm Eyes: Yes: Conjunctiva Clear HENT: Yes: Atraumatic Neck: Yes: Trachea Midline Cardiovascular: Yes: Regular Rate and Rhythm Respiratory: Yes: CTA Bilaterally Gastrointestinal Inspection: Yes: WNL ...Auscultate: Yes: Normoactive Bowel Sounds ...Palpate: Yes: Soft, Splenomegaly (palpable spleen left lateral subcostal area), Other (nontender) ...Rectal Exam: Yes: Guaiac Negative (brown guaiac negative stool), Hemorrhoids/External Extremities: Yes: Other (brawny edema lower extremities) Edema: Yes Edema: LLE: 2+, RLE: 1+ Neurological: Yes: Alert, Oriented Labs: CBC, BMP 09/22/19 05:40 09/22/19 05:40 INR, PTT INR 1.35 (0.83-1.09) H 09/21/19 10:49 Imaging - Results Cat Scan: Report Reviewed Problem List - Problems (1) Abdominal pain Code(s): R10.9 - UNSPECIFIED ABDOMINAL PAIN (2) Constipation Code(s): K59.00 - CONSTIPATION, UNSPECIFIED (3) Hepatic cirrhosis due to chronic hepatitis C infection Code(s): B18.2 - CHRONIC VIRAL HEPATITIS C; K74.60 - UNSPECIFIED CIRRHOSIS OF LIVER (4) Varices, esophageal Code(s): I85.00 - ESOPHAGEAL VARICES WITHOUT BLEEDING (5) Varices of spleen Code(s): I86.8 - VARICOSE VEINS OF OTHER SPECIFIED SITES (6) Splenomegaly Code(s): R16.1 - SPLENOMEGALY, NOT ELSEWHERE CLASSIFIED (7) History of severe acute respiratory syndrome coronavirus 2 (SARS-CoV-2) disease Code(s): Z86.19 - PERSONAL HISTORY OF OTHER INFECTIOUS AND PARASITIC DISEASES (8) Cirrhosis of liver with ascites Code(s): K74.60 - UNSPECIFIED CIRRHOSIS OF LIVER; R18.8 - OTHER ASCITES (9) Gallstones Code(s): K80.20 - CALCULUS OF GALLBLADDER W/O CHOLECYSTITIS W/O OBSTRUCTION (10) HTN (hypertension) Code(s): I10 - ESSENTIAL (PRIMARY) HYPERTENSION (11) Pancytopenia Code(s): D61.818 - OTHER PANCYTOPENIA (12) Wound of left foot Code(s): S91.302A - UNSPECIFIED OPEN WOUND, LEFT FOOT, INITIAL ENCOUNTER Assessment/Plan Impression: - I suspect that Merle postprandial pain reflects bloating from constipation. I doubt SBP given the minimal ascites and postprandial nature of her pain. - Persistent esophageal varices despite previous banding. Already on nonselective beta brenda Plan: -- AFP, HCV-DNA by PCR -- Miralax TID -- May need repeat EGD if pain persists -- Continue PPI Dr Sanchez will return tomorrow
--- NOTE | 2019-09-22 14:47 | EKG ---
Test Reason : Blood Pressure : / mmHG Vent. Rate : 065 BPM Atrial Rate : 065 BPM P-R Int : 150 ms QRS Dur : 094 ms QT Int : 448 ms P-R-T Axes : 053 -12 042 degrees QTc Int : 465 ms NORMAL SINUS RHYTHM LEFT ATRIAL ENLARGEMENT NONSPECIFIC ST ABNORMALITY BORDERLINE ECG Confirmed by MD TIFF, JENNIFER ([id number]) on 09/22/2019 2:46:50 PM Referred By: Confirmed By:JENNIFER MATTHEW MD
[2019-09-22] MEDS: POLYETHYLENE GLYCOL 3350 119 GM BTL PO SCH (21:15)
[2019-09-23] MEDS: DOCUSATE SODIUM 100 MG CAPSULE (FP) PO SCH ×3 (06:24→23:37)
[2019-09-23] MEDS: POLYETHYLENE GLYCOL 3350 119 GM BTL PO SCH ×3 (06:24→23:38)
[2019-09-23 07:27] LABS: BASO % 0.2 % (0-2.0); HEMATOCRIT 26.3 % (32.4-45.2); HEMOGLOBIN 8.4 GM/dL (10.7-15.3); LYMPH % 19.2 % (8-40); MCH 28.8 pg (25.7-33.7); MEAN CELL VOLUME 90.1 fl (80-96); MEAN PLT VOLUME 7.8 fl (7.5-11.1); MONO % 13.8 % (3.8-10.2); NEUT % 63.8 % (42.8-82.8); PLATELET COUNT 46 K/MM3 (134-434); RBC 2.92 M/mm3 (3.60-5.2); RDW 16.6 % (11.6-15.6)
[2019-09-23 07:34] LABS: WHITE BLOOD COUNT 1.3 K/mm3 (4.0-10.0)
[2019-09-23 07:50] LABS: CALCIUM 7.9 mg/dL (8.5-10.1); POTASSIUM 3.7 mmol/L (3.5-5.1)
--- NOTE | 2019-09-23 08:51 | PN ---
Physical Exam: SUBJECTIVE: Patient seen and examined at bedside. Feels better today. OBJECTIVE: Vital Signs Period Temp Pulse Resp BP Sys/Nava Pulse Ox Last 24 Hr 97.4 F-98.8 F 62-78 18-20 123-145/58-72 100-100 Gen: AAOx3, NAD HEENT: NCAT, EOMI Neck: no jvd noted Cardio: rrr, norm s1s2, 3/6 systolic murmur Pulm: cta b/l Abd: soft, LUQ tenderness to palpation Ext: Lower extremity skin changes, moderate edema Laboratory Results - last 24 hr 09/22/19 09/22/19 09/23/19 05:40 20:00 06:00 WBC RBC Hgb Hct MCV MCH MCHC RDW Plt Count MPV Absolute Neuts (auto) Neutrophils % Neutrophils % (Manual) 79.4 Band Neutrophils % 1.0 Lymphocytes % Lymphocytes % (Manual) 11.4 D Monocytes % Monocytes % (Manual) 7 D Eosinophils % Eosinophils % (Manual) 1.0 Basophils % Basophils % (Manual) 0.0 Myelocytes % (Man) 0 D Promyelocytes % (Man) 0 Blast Cells % (Manual) 0 Nucleated RBC % 0 Metamyelocytes 0 D Hypochromia 0 Platelet Estimate Decreased Polychromasia 1+ Anisocytosis 1+ Macrocytosis 0 Sodium 144 Potassium 3.7 Chloride 112 H Carbon Dioxide 25 Anion Gap 7 L BUN 15.0 Creatinine 1.0 Est GFR (CKD-EPI)AfAm 63.38 Est GFR (CKD-EPI)NonAf 54.68 Random Glucose 86 Calcium 7.9 L Creatine Kinase 58 Troponin I < 0.02 09/23/19 06:44 WBC 1.3 L* RBC 2.92 L Hgb 8.4 L Hct 26.3 L MCV 90.1 MCH 28.8 MCHC 32.0 RDW 16.6 H Plt Count 46 L MPV 7.8 Absolute Neuts (auto) 0.8 L Neutrophils % 63.8 Neutrophils % (Manual) Band Neutrophils % Lymphocytes % 19.2 D Lymphocytes % (Manual) Monocytes % 13.8 H Monocytes % (Manual) Eosinophils % 3.0 Eosinophils % (Manual) Basophils % 0.2 Basophils % (Manual) Myelocytes % (Man) Promyelocytes % (Man) Blast Cells % (Manual) Nucleated RBC % 0 Metamyelocytes Hypochromia Platelet Estimate Polychromasia Anisocytosis Macrocytosis Sodium Potassium Chloride Carbon Dioxide Anion Gap BUN Creatinine Est GFR (CKD-EPI)AfAm Est GFR (CKD-EPI)NonAf Random Glucose Calcium Creatine Kinase Troponin I Active Medications Generic Name Dose Route Start Last Admin Trade Name Freq PRN Reason Stop Dose Admin Acetaminophen 650 mg 09/21/19 16:49 09/22/19 21:14 Tylenol - PO 650 mg Q6H PRN Administration Fever Or Pain Albuterol Sulfate 2 puff 09/22/19 07:30 Ventolin Hfa Inhaler - IH Q4H PRN SHORT OF BREATH/WHEEZING Amino Acids 30 ml 09/21/19 17:30 09/22/19 18:25 Prosource No Carb Liquid Pkt PO 30 ml BID@0800,1730 REJI Administration Amlodipine Besylate 10 mg 09/22/19 10:00 09/22/19 09:47 Norvasc - PO 10 mg DAILY REJI Administration Ascorbic Acid 500 mg 09/21/19 22:00 09/22/19 21:14 Vitamin C - PO 500 mg BID REJI Administration Collagenase 1 applic 09/22/19 10:15 09/22/19 11:57 Santyl - TP 1 applic DAILY REJI Administration Protocol Docusate Sodium 100 mg 09/21/19 22:00 09/23/19 06:24 Colace - PO 100 mg TID REJI Administration Pantoprazole Sodium 40 mg 09/22/19 10:00 09/22/19 09:47 Protonix - PO 40 mg DAILY REJI Administration Polyethylene Glycol 17 gm 09/22/19 22:00 09/23/19 06:24 Miralax (For Daily Use) - PO 17 gm TID REJI Administration Propranolol HCl 10 mg 09/21/19 22:00 09/23/19 06:24 Inderal - PO 10 mg TID REJI Administration ASSESSMENT/PLAN: 74 yo F with a hx of Hep C, cirrhosis, pancytopenia, splenomegaly, and HTN who was recently admitted on 06/27/2019 with COVID 19+ with imaging consistent with b/l PNA presented to the emergency department with abdominal pain, leg pain, and SOB. She is admitted with pericardial effusion 2/2 cirrhosis. Pt normally follows at [facility]. #SOB -likely 2/2 pericardial effusion -improved at this time -echo pending -PE ruled out -Pulm on board -Cardio on board -avoid diuresis due to pericardial effusion #hepatic cirrhosis -Hist of hep C s/p therapy -Hist of varices s/p banding -pancytopenic -cirrhosis with varices, ascites and splenomegally noted on CT -GI on board. Pt may need EGD -AFP, Hepatitis panel pending -c/w PPI, propranolol #Pancytopenia -in the setting of cirrhosis and splenomegally -also with inguinal LAD noted on CT -GI on board -Heme/Onc consulted #splenic artery aneurysm -3 x 2.3 cm patent splenic artery aneurysm noted on CT -vascular surg consulted #Colonic diverticulosis -per pt had "normal" colonoscopy in the past #mild UPJ obstruction -? Contribution to her abdominal pain - Urology consulted f/u recs #h/o covid 19 pna in june -CT with improving #?Increased PAP -mildly dilated Pulm Art on CT -echo pending -Cardio on board #L foot wound -santyl and vasc surgery consult #Hold dvt ppx due to bleed risk Visit type - Emergency Visit Emergency Visit: No - New Patient This patient is new to me today: Yes Date on this admission: 09/23/19 - Critical Care Critical Care patient: No ATTENDING PHYSICIAN STATEMENT I saw and evaluated the patient. I reviewed the resident's note and discussed the case with the resident. I agree with the resident's findings and plan as documented. SUBJECTIVE: OBJECTIVE: ASSESSMENT AND PLAN:
--- NOTE | 2019-09-23 08:53 | PN ---
Teaching Attending Note Name of Resident: Keven Del Toro ATTENDING PHYSICIAN STATEMENT I saw and evaluated the patient. I reviewed the resident's note and discussed the case with the resident. I agree with the resident's findings and plan as documented. SUBJECTIVE: She is much better today no shortness of breath no fever no stomach pain she ate her food. OBJECTIVE: Vital Signs Period Temp Pulse Resp BP Sys/Nava Pulse Ox Last 24 Hr 97.4 F-98.8 F 62-78 18-20 123-145/58-72 100-100 Patient is comfortable HEENT normal Neck supple no JVD Lungs bilateral coarse breath sounds Abdomen nontender no organomegaly bowel sounds normal Extremities no edema no cyanosis normal pulses Neurologically he is alert awake oriented, nonfocal Skin no rash noted Heart examination shows she has distant heart sounds CBC, BMP 09/23/19 06:44 09/23/19 06:00 ASSESSMENT AND PLAN: COVID-19 pneumonia Pericardial effusion Liver cirrhosis Hepatitis C Pancytopenia due to multiple recent because of hep C and splenomegaly Plan is she is improving awaiting cardiac consult continue same medication this time out of bed and physical therapy
[2019-09-23] MEDS: ASCORBIC ACID 500 MG TABLET (FP) PO SCH ×2 (09:02→23:37)
[2019-09-23] MEDS: PANTOPRAZOLE 40 MG TABLET PO SCH (09:02)
[2019-09-23] MEDS: COLLAGENASE CLOSTRIDIUM HIST. 30 GRAMS TUBE TP SCH (09:02)
[2019-09-23] MEDS: amLODIPine BESYLATE 10 MG TABLET (FP) PO SCH (09:02)
[2019-09-23] MEDS: AMINO ACIDS/PROTEIN HYDROLYS 30 ML LIQUID.PKT PO SCH ×2 (09:02→17:04)
--- NOTE | 2019-09-23 09:17 | PN ---
Progress Note, Physician History of Present Illness: No further chest or abd pain or dyspnea. - Current Medication List Current Medications: Active Medications Acetaminophen (Tylenol -) 650 mg PO Q6H PRN PRN Reason: Fever Or Pain Last Admin: 09/22/19 21:14 Dose: 650 mg Documented by: Albuterol Sulfate (Ventolin Hfa Inhaler -) 2 puff IH Q4H PRN PRN Reason: SHORT OF BREATH/WHEEZING Amino Acids (Prosource No Carb Liquid Pkt) 30 ml PO BID@0800,1730 [facility] Last Admin: 09/23/19 09:02 Dose: 30 ml Documented by: Amlodipine Besylate (Norvasc -) 10 mg PO DAILY [facility] Last Admin: 09/23/19 09:02 Dose: 10 mg Documented by: Ascorbic Acid (Vitamin C -) 500 mg PO BID [facility] Last Admin: 09/23/19 09:02 Dose: 500 mg Documented by: Collagenase (Santyl -) 1 applic TP DAILY [facility]; Protocol Last Admin: 09/23/19 09:02 Dose: 1 applic Documented by: Docusate Sodium (Colace -) 100 mg PO TID [facility] Last Admin: 09/23/19 06:24 Dose: 100 mg Documented by: Pantoprazole Sodium (Protonix -) 40 mg PO DAILY [facility] Last Admin: 09/23/19 09:02 Dose: 40 mg Documented by: Polyethylene Glycol (Miralax (For Daily Use) -) 17 gm PO TID [facility] Last Admin: 09/23/19 06:24 Dose: 17 gm Documented by: Propranolol HCl (Inderal -) 10 mg PO TID [facility] Last Admin: 09/23/19 06:24 Dose: 10 mg Documented by: - Objective Vital Signs: Vital Signs Temperature 98.1 F 09/23/19 06:00 Pulse Rate 66 09/23/19 06:00 Respiratory Rate 18 09/23/19 06:00 Blood Pressure 131/61 09/23/19 06:00 O2 Sat by Pulse Oximetry (%) 100 09/22/19 21:00 Constitutional: Yes: No Distress, Calm Neck: Yes: Supple Cardiovascular: Yes: Regular Rate and Rhythm Respiratory: Yes: Regular, Diminished, On Nasal O2 Gastrointestinal: Yes: Soft, Hypoactive Bowel Sounds Edema: Yes Edema: LLE: Trace, RLE: Trace Labs: CBC, BMP 09/23/19 06:44 09/23/19 06:00 INR, PTT INR 1.35 (0.83-1.09) H 09/21/19 10:49 - ....Imaging EKG: Report Reviewed (Tele: NSR) Problem List - Problems (1) Pericardial effusion without cardiac tamponade Code(s): I31.3 - PERICARDIAL EFFUSION (NONINFLAMMATORY) (2) Hepatic cirrhosis due to chronic hepatitis C infection Code(s): B18.2 - CHRONIC VIRAL HEPATITIS C; K74.60 - UNSPECIFIED CIRRHOSIS OF LIVER (3) HTN (hypertension) Code(s): I10 - ESSENTIAL (PRIMARY) HYPERTENSION Qualifiers: Hypertension type: essential hypertension Qualified Code(s): I10 - Essential (primary) hypertension Assessment/Plan CT chest: at least moderate sized pericardial effusion, which may be mildly increased from 07/15/2019 CT. 1. Percardial effusion 2. Hx COVID pneumonitis 3. HCV (?transfusion-related); Liver cirrhosis; ascites; parasplenal and esophageal varices 4. Pancytopenia 5. LLE ulcer 6. HTN 7. Splenic artery aneurysm Plan: 1. COVID retest results pending. 2. Hemodynamics stable presently. 3. TNI < 0.02 x 3. 4. Await ECHO for LVEF, pericardial fluid status, right-sided findings. 5. F/u with toaster operator, vascular surgeon and customs consultant. 6. On propanolol and amlodipine, inhaled bronchodilators as needed, O2 to keep SpO2 >90%
[2019-09-23 09:40] LABS: ANISOCYTOSIS 1+; MACROCYTOSIS 0; OVALOCYTE 1+; PLATELET ESTIMATE DECREASED; TEAR DROP CELLS 1+
--- NOTE | 2019-09-23 09:57 | PN.GI ---
GI Progress Note Subjective: Abdominal pain improved No acute events Shortness of breath (LEARY) Splenic aneurysm noted - Objective Vital Signs: Vital Signs Temperature 97.5 F L 09/23/19 09:44 Pulse Rate 60 09/23/19 09:44 Respiratory Rate 18 09/23/19 09:44 Blood Pressure 143/68 09/23/19 09:44 O2 Sat by Pulse Oximetry (%) 100 09/23/19 09:00 Constitutional: Calm Eyes: No: Sclera Icterus Cardiovascular: Yes: Regular Rate and Rhythm, Murmur (2/6 systolic murmur at the LSB>RSB) Gastrointestinal Inspection: Yes: Scars (+ Pelvic surgical scar). No: Distention ...Auscultate: Yes: Normoactive Bowel Sounds ...Palpate: Yes: Soft, Splenomegaly (Mild TTP), Tenderness. No: Hepatomegaly ...Percussion: No: Tympanitic Extremities: Yes: Other (Left plantar foot wound) Edema: Yes Edema: LLE: Trace, RLE: Trace Neurological: Yes: Alert Labs: CBC, BMP 09/23/19 06:44 09/23/19 06:00 INR, PTT INR 1.35 (0.83-1.09) H 09/21/19 10:49 Assessment/Plan Abdominal pain: Clinically improved She does have Tenderness upon palpation of her enlarged, palpable spleen: Consider heme evaluation, vascular surgery evaluation re: splenic aneurysm Tolerating regular diet Continue PPI
--- NOTE | 2019-09-23 11:47 | PN ---
Progress Note (short form) - Note Progress Note: PULMONARY States breathing is slightly improved. No cough or chest pain. Vital Signs Period Temp Pulse Resp BP Sys/Nava Pulse Ox Last 24 Hr 97.5 F-98.8 F 60-78 18-20 127-145/61-72 100-100 Gen: NAD at rest Heart: RRR Lung: decreased breath sounds at the bases Abd: soft, nontender Ext: no edema CBC, BMP 09/23/19 06:44 09/23/19 06:00 Active Medications Acetaminophen (Tylenol -) 650 mg PO Q6H PRN PRN Reason: Fever Or Pain Last Admin: 09/22/19 21:14 Dose: 650 mg Documented by: Albuterol Sulfate (Ventolin Hfa Inhaler -) 2 puff IH Q4H PRN PRN Reason: SHORT OF BREATH/WHEEZING Amino Acids (Prosource No Carb Liquid Pkt) 30 ml PO BID@0800,1730 [facility] Last Admin: 09/23/19 09:02 Dose: 30 ml Documented by: Amlodipine Besylate (Norvasc -) 10 mg PO DAILY [facility] Last Admin: 09/23/19 09:02 Dose: 10 mg Documented by: Ascorbic Acid (Vitamin C -) 500 mg PO BID [facility] Last Admin: 09/23/19 09:02 Dose: 500 mg Documented by: Collagenase (Santyl -) 1 applic TP DAILY [facility]; Protocol Last Admin: 09/23/19 09:02 Dose: 1 applic Documented by: Docusate Sodium (Colace -) 100 mg PO TID [facility] Last Admin: 09/23/19 06:24 Dose: 100 mg Documented by: Pantoprazole Sodium (Protonix -) 40 mg PO DAILY [facility] Last Admin: 09/23/19 09:02 Dose: 40 mg Documented by: Polyethylene Glycol (Miralax (For Daily Use) -) 17 gm PO TID [facility] Last Admin: 09/23/19 06:24 Dose: 17 gm Documented by: Propranolol HCl (Inderal -) 10 mg PO TID [facility] Last Admin: 09/23/19 06:24 Dose: 10 mg Documented by: A/P Pericardial Effusion h/o COVID19 Pneumonia Pancytopenia Hep C Cirrhosis Splenic Artery Aneurysm HTN - f/u echocardiogram - O2 to keep SpO2 >90% - inhaled bronchodilators as needed - vascular surgery eval
[2019-09-23] MEDS ORDERED: PT OWN MED DRAWER 7, Y5N ONE ×3 (13:18→23:50)
--- NOTE | 2019-09-23 13:30 | CON.GU ---
Consult Consult Specialty:: urology Reason for Consultation:: right hydronephrosis with abdominal pain and microscopic hematuria - History of Present Illness History of Present Illness: Patient is a 74 year old female patient with history of pericardial effusion, h/o COVID 19 pneumonia, pancytopenia, hep c cirrhosis, htn, and splenic artery aneurysm who presents with abdominal pain. She has generalized abdominal pain but denies gross hematuria, nausea, vomiting, or dysuria. the patient does not currently experience right flank pain. 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 Cardio/Vascular: Yes: HTN, Other (cardiomegaly/pericardial effusion) Pulmonary: Yes: Other (covid pneumonitis june) Gastrointestinal: Yes: Esophageal Varices, Other (hep c/cirrhosis/varicies/splenomegaly/ascites) Hepatobiliary: Yes: Cirrhosis Renal/: No: Renal Failure ...: No Infectious Disease: Yes: Other (covid 19 in june 2019) Psych: No: Addictions Musculoskeletal: Yes: Osteoarthritis Rheumatology: No: Rheumatoid Arthritis Endocrine: No: Diabetes Mellitus, Hypothyroidism - Past Surgical History Past Surgical History: Yes: Colonoscopy, Upper Endoscopy - Alcohol/Substance Use Hx Alcohol Use: No History of Substance Use: reports: None - Smoking History Smoking history: Never smoked Have you smoked in the past 12 months: No - Social History Usual Living Arrangement: With Child ADL: Independent History of Recent Travel: No Home Medications - Allergies Allergies/Adverse Reactions: Allergies Allergy/AdvReac Type Severity Reaction Status Date / Time No Known Allergies Allergy Verified 06/27/19 00:33 - Home Medications Home Medications: Ambulatory Orders Amino Acids/Protein Hydrolys [Prosource No Carb Liquid Pkt] 30 ml PO BID@0800,1730 #60 packet 07/16/19 Amlodipine Besylate [Norvasc -] 10 mg PO DAILY #30 tablet 07/16/19 Ascorbic Acid [Vitamin C -] 500 mg PO BID #60 tablet 07/16/19 Cholecalciferol (Vitamin D3) [Vitamin D3 -] 1,000 unit PO DAILY #30 tab 07/16/19 Collagenase Clostridium Hist. [Santyl -] 1 applic TP DAILY #1 tube 07/16/19 Docusate Sodium [Colace -] 100 mg PO TID #90 capsule 07/16/19 Multivitamins [Multivit ([facility] Formulary)] 1 tab PO DAILY #30 tab 07/16/19 Zinc Sulfate [Orazinc -] 220 mg PO DAILY #30 capsule 07/16/19 propRANOLol HCL [Inderal -] 10 mg PO TID #90 tablet 07/16/19 Latanoprost 0.005% Eye Drop HS 09/22/19 Physical Exam- Vital Signs: Vital Signs Temperature 97.5 F L 09/23/19 09:44 Pulse Rate 60 09/23/19 09:44 Respiratory Rate 18 09/23/19 09:44 Blood Pressure 143/68 09/23/19 09:44 O2 Sat by Pulse Oximetry (%) 100 09/23/19 09:00 Constitutional: Yes: No Distress, Calm Eyes: Yes: WNL, Conjunctiva Clear, EOM Intact HENT: Yes: WNL, Atraumatic, Normocephalic Neck: Yes: WNL, Trachea Midline Cardiovascular: Yes: Regular Rate and Rhythm Respiratory: Yes: Regular Gastrointestinal: Yes: Normal Bowel Sounds, Soft Kidneys: Yes: WNL Pelvis: Yes: WNL, Bladder Non Palpable External Genitalia: Yes: WNL, Tenderness Labs: CBC, BMP 09/23/19 06:44 09/23/19 06:00 Assessment/Plan impression Pericardial Effusion h/o COVID19 Pneumonia Pancytopenia Hep C Cirrhosis Splenic Artery Aneurysm HTN right hydronephrosis microscopic hematuria plan will follow up as outpatient for hematuria work-up no acute urologic pathology; patient with mild right upj obstruction
[2019-09-24] MEDS ORDERED: PT OWN MED DRAWER 7, Y5N ONE (05:49)
[2019-09-24] MEDS: DOCUSATE SODIUM 100 MG CAPSULE (FP) PO SCH ×3 (06:23→22:02)
[2019-09-24] MEDS: POLYETHYLENE GLYCOL 3350 119 GM BTL PO SCH ×3 (06:24→22:02)
--- NOTE | 2019-09-24 06:36 | PN ---
Progress Note (short form) - Note Progress Note: Chief Complaint: Events noted, notes reviewed, resting in bed comfortably, denies any chest discomfort History of Present Illness: Seen and examined on telemetry. Events noted, notes reviewed, Events noted, notes reviewed, resting in bed comfortably, denies any chest discomfort Medications: Current Medications Generic Name Dose Route Start Last Admin Trade Name Freq PRN Reason Stop Dose Admin Acetaminophen 650 mg 09/21/19 16:49 09/22/19 21:14 Tylenol - PO 650 mg Q6H PRN Administration Fever Or Pain Albuterol Sulfate 2 puff 09/22/19 07:30 Ventolin Hfa Inhaler - IH Q4H PRN SHORT OF BREATH/WHEEZING Amino Acids 30 ml 09/21/19 17:30 09/23/19 17:04 Prosource No Carb Liquid Pkt PO 30 ml BID@0800,1730 REJI Administration Amlodipine Besylate 10 mg 09/22/19 10:00 09/23/19 09:02 Norvasc - PO 10 mg DAILY REJI Administration Ascorbic Acid 500 mg 09/21/19 22:00 09/23/19 23:37 Vitamin C - PO 500 mg BID REJI Administration Collagenase 1 applic 09/22/19 10:15 09/23/19 09:02 Santyl - TP 1 applic DAILY REJI Administration Protocol Docusate Sodium 100 mg 09/21/19 22:00 09/24/19 06:23 Colace - PO 100 mg TID REJI Administration Pantoprazole Sodium 40 mg 09/22/19 10:00 09/23/19 09:02 Protonix - PO 40 mg DAILY REJI Administration Polyethylene Glycol 17 gm 09/22/19 22:00 09/24/19 06:24 Miralax (For Daily Use) - PO 17 gm TID REJI Administration Propranolol HCl 10 mg 09/21/19 22:00 09/24/19 06:23 Inderal - PO 10 mg TID REJI Administration Review of Systems - Review of Systems Constitutional: denies: Fever or Chills Cardiovascular: As noted above Respiratory: denies: Cough or Sputum Production Gastrointestinal: denies: Nausea, Vomiting, Diarrhea, Constipation, Abdominal Pain Neurological: denies: Headaches Vital Signs: Last Vital Signs Temp Pulse Resp BP Pulse Ox 97.7 F 74 18 126/57 L 99 09/24/19 05:43 09/24/19 05:43 09/24/19 05:43 09/24/19 05:43 09/23/19 21:00 Intake & Output 09/21/19 09/22/19 09/23/19 09/24/19 23:59 23:59 23:59 23:59 Intake Total 896 008 9489 200 Balance 916 000 1243 200 Weight 150 lb Neck: Supple Negative JVD No Bruit Respiratory: Diminished breath sounds at the bases bilaterally Cardiovascular: S1 S2 Regular Rate and Rhythm Gastrointestinal: Soft Benign Normal Bowel Sounds Ext: Negative Edema Labs: CBC, BMP 09/24/19 06:20 09/24/19 06:20 CBC, BMP 09/23/19 06:44 09/23/19 06:00 Hepatic Panel Total Bilirubin 1.0 mg/dL (0.2-1) 09/22/19 05:40 AST 30 U/L (15-37) 09/22/19 05:40 ALT 20 U/L (13-61) 09/22/19 05:40 Alkaline Phosphatase 93 U/L (45-117) 09/22/19 05:40 Albumin 2.4 g/dl (3.4-5.0) L 09/22/19 05:40 INR, PTT INR 1.35 (0.83-1.09) H 09/21/19 10:49 Assessment/Plan ASSESSMENT: 1. Pericardial effusion, etiology of which is unclear- repeat echocardiography study pending 2. Hypertensive cardiovascular disease 3. History of coronavirus/COVID 19 pneumonitis 4. History of chronic liver disease/hepatic cirrhosis/hepatitis C post therapy 5. Pancytopenia 6. Incidental finding of a splenic artery aneurysm Plan: 1. Await repeat echocardiography study for further evaluation of the above-noted pericardial effusion 2. Recommend initiation of Nadolol therapy in substitution for Inderal therapy (Nadolol/data with portal hypertension) 3. Continue Norvasc therapy 4. Vascular evaluation for the above-noted incidental finding of a splenic artery aneurysm Srinath Tobar M.D.
[2019-09-24 06:55] LABS: BASO % 0.4 % (0-2.0); EOS % 3.4 % (0-4.5); HEMATOCRIT 25.4 % (32.4-45.2); HEMOGLOBIN 8.3 GM/dL (10.7-15.3); LYMPH % 18.9 % (8-40); MCH 28.7 pg (25.7-33.7); MCHC 32.6 g/dl (32.0-36.0); MEAN CELL VOLUME 88.1 fl (80-96); MEAN PLT VOLUME 7.5 fl (7.5-11.1); NEUT % 63.3 % (42.8-82.8); PLATELET COUNT 45 K/MM3 (134-434); RBC 2.88 M/mm3 (3.60-5.2); RDW 15.7 % (11.6-15.6)
[2019-09-24 07:04] LABS: WHITE BLOOD COUNT 1.4 K/mm3 (4.0-10.0)
[2019-09-24 07:19] LABS: BLOOD UREA NITROGEN 17.8 mg/dL (7-18); CALCIUM 8.1 mg/dL (8.5-10.1); POTASSIUM 3.7 mmol/L (3.5-5.1)
--- NOTE | 2019-09-24 07:23 | PN ---
Progress Note, Physician History of Present Illness: PULMONARY ALERT,FEELING BETTER,LESS DYSPNEIC,OCC COUGH - Current Medication List Current Medications: Active Medications Acetaminophen (Tylenol -) 650 mg PO Q6H PRN PRN Reason: Fever Or Pain Last Admin: 09/22/19 21:14 Dose: 650 mg Documented by: Albuterol Sulfate (Ventolin Hfa Inhaler -) 2 puff IH Q4H PRN PRN Reason: SHORT OF BREATH/WHEEZING Amino Acids (Prosource No Carb Liquid Pkt) 30 ml PO BID@0800,1730 [facility] Last Admin: 09/23/19 17:04 Dose: 30 ml Documented by: Amlodipine Besylate (Norvasc -) 10 mg PO DAILY [facility] Last Admin: 09/23/19 09:02 Dose: 10 mg Documented by: Ascorbic Acid (Vitamin C -) 500 mg PO BID [facility] Last Admin: 09/23/19 23:37 Dose: 500 mg Documented by: Collagenase (Santyl -) 1 applic TP DAILY [facility]; Protocol Last Admin: 09/23/19 09:02 Dose: 1 applic Documented by: Docusate Sodium (Colace -) 100 mg PO TID [facility] Last Admin: 09/24/19 06:23 Dose: 100 mg Documented by: Pantoprazole Sodium (Protonix -) 40 mg PO DAILY [facility] Last Admin: 09/23/19 09:02 Dose: 40 mg Documented by: Polyethylene Glycol (Miralax (For Daily Use) -) 17 gm PO TID [facility] Last Admin: 09/24/19 06:24 Dose: 17 gm Documented by: Propranolol HCl (Inderal -) 10 mg PO TID [facility] Last Admin: 09/24/19 06:23 Dose: 10 mg Documented by: - Objective Vital Signs: Vital Signs Temperature 97.7 F 09/24/19 05:43 Pulse Rate 74 09/24/19 05:43 Respiratory Rate 18 09/24/19 05:43 Blood Pressure 126/57 L 09/24/19 05:43 O2 Sat by Pulse Oximetry (%) 99 09/23/19 21:00 Constitutional: Yes: Well Nourished, Calm Eyes: Yes: WNL HENT: Yes: WNL Neck: Yes: WNL Cardiovascular: Yes: Regular Rate and Rhythm, S1, S2 Respiratory: Yes: CTA Bilaterally Gastrointestinal: Yes: Normal Bowel Sounds, Soft Extremities: Yes: WNL Edema: No Labs: CBC, BMP 09/24/19 06:20 09/24/19 06:20 INR, PTT INR 1.35 (0.83-1.09) H 09/21/19 10:49 Laboratory Tests 09/21/19 09/22/19 15:18 09:00 COVID-19 (ANAIS) Not detected SARS-CoV-2 IgG Ab Positive H SARS-CoV-2 IgM Ab Negative Problem List - Problems (1) Pericardial effusion without cardiac tamponade Code(s): I31.3 - PERICARDIAL EFFUSION (NONINFLAMMATORY) (2) COVID-19 virus infection Code(s): U07.1 - COVID POSITIVE (3) HCV (hepatitis C virus) Code(s): B19.20 - UNSPECIFIED VIRAL HEPATITIS C WITHOUT HEPATIC COMA (4) HTN (hypertension) Code(s): I10 - ESSENTIAL (PRIMARY) HYPERTENSION Qualifiers: Hypertension type: essential hypertension Qualified Code(s): I10 - Essential (primary) hypertension (5) Pancytopenia Code(s): D61.818 - OTHER PANCYTOPENIA Assessment/Plan A/P Pericardial Effusion h/o COVID19 Pneumonia Pancytopenia Hep C Cirrhosis Splenic Artery Aneurysm HTN - f/u echocardiogram - O2 to keep SpO2 >90% - inhaled bronchodilators as needed - vascular surgery eval - REPEAT COVID NEGATIVE DR COURTNEY
[2019-09-24] MEDS: AMINO ACIDS/PROTEIN HYDROLYS 30 ML LIQUID.PKT PO SCH ×2 (08:56→18:17)
[2019-09-24] MEDS: PANTOPRAZOLE 40 MG TABLET PO SCH (09:03)
[2019-09-24] MEDS: COLLAGENASE CLOSTRIDIUM HIST. 30 GRAMS TUBE TP SCH (09:03)
[2019-09-24] MEDS: ASCORBIC ACID 500 MG TABLET (FP) PO SCH ×2 (09:03→22:02)
[2019-09-24] MEDS: amLODIPine BESYLATE 10 MG TABLET (FP) PO SCH (09:03)
[2019-09-24 09:31] LABS: ANISOCYTOSIS 2+; MACROCYTOSIS 0; PLATELET ESTIMATE DECREASED
--- NOTE | 2019-09-24 11:52 | PN ---
Physical Exam: SUBJECTIVE: Patient seen and examined at bedside. OBJECTIVE: Vital Signs Period Temp Pulse Resp BP Sys/Nava Pulse Ox Last 24 Hr 97.7 F-98.5 F 60-74 18-19 114-142/57-75 99-100 Gen: AAOx3, NAD HEENT: NCAT, EOMI Neck: no jvd noted Cardio: rrr, norm s1s2, 3/6 systolic murmur Pulm: cta b/l Abd: soft, LUQ tenderness to palpation Ext: Lower extremity skin changes, moderate edema, L heel wound with minimal drainage Laboratory Results - last 24 hr 09/21/19 09/22/19 09/23/19 15:18 09:00 06:44 WBC RBC Hgb Hct MCV MCH MCHC RDW Plt Count MPV Absolute Neuts (auto) Neutrophils % Neutrophils % (Manual) Band Neutrophils % Lymphocytes % Lymphocytes % (Manual) Monocytes % Monocytes % (Manual) Eosinophils % Eosinophils % (Manual) Basophils % Basophils % (Manual) Myelocytes % (Man) Promyelocytes % (Man) Blast Cells % (Manual) Nucleated RBC % Metamyelocytes Hypochromia Platelet Estimate Polychromasia Poikilocytosis Anisocytosis Microcytosis Macrocytosis Sodium Potassium Chloride Carbon Dioxide Anion Gap BUN Creatinine Est GFR (CKD-EPI)AfAm Est GFR (CKD-EPI)NonAf Random Glucose Calcium Tumor Marker AFP 6.6 Stool Occult Blood COVID-19 (ANAIS) Not detected SARS-CoV-2 IgG Ab Positive H SARS-CoV-2 IgM Ab Negative 09/24/19 09/24/19 09/24/19 06:00 06:20 06:20 WBC 1.4 L* RBC 2.88 L Hgb 8.3 L Hct 25.4 L MCV 88.1 MCH 28.7 MCHC 32.6 RDW 15.7 H Plt Count 45 L MPV 7.5 Absolute Neuts (auto) 0.9 L Neutrophils % 63.3 Neutrophils % (Manual) 67.7 Band Neutrophils % 0.0 Lymphocytes % 18.9 Lymphocytes % (Manual) 13.5 Monocytes % 14.0 H Monocytes % (Manual) 12 H Eosinophils % 3.4 Eosinophils % (Manual) 6.3 H D Basophils % 0.4 Basophils % (Manual) 1.0 D Myelocytes % (Man) 0 Promyelocytes % (Man) 0 Blast Cells % (Manual) 0 Nucleated RBC % 0 Metamyelocytes 0 Hypochromia 0 Platelet Estimate Decreased Polychromasia 0 Poikilocytosis 0 Anisocytosis 2+ Microcytosis 2+ Macrocytosis 0 Sodium 144 Potassium 3.7 Chloride 112 H Carbon Dioxide 25 Anion Gap 7 L BUN 17.8 Creatinine 1.0 Est GFR (CKD-EPI)AfAm 63.38 Est GFR (CKD-EPI)NonAf 54.68 Random Glucose 97 Calcium 8.1 L Tumor Marker AFP Stool Occult Blood Negative COVID-19 (ANAIS) SARS-CoV-2 IgG Ab SARS-CoV-2 IgM Ab Active Medications Generic Name Dose Route Start Last Admin Trade Name Freq PRN Reason Stop Dose Admin Acetaminophen 650 mg 09/21/19 16:49 09/22/19 21:14 Tylenol - PO 650 mg Q6H PRN Administration Fever Or Pain Albuterol Sulfate 2 puff 09/22/19 07:30 Ventolin Hfa Inhaler - IH Q4H PRN SHORT OF BREATH/WHEEZING Amino Acids 30 ml 09/21/19 17:30 09/24/19 08:56 Prosource No Carb Liquid Pkt PO 30 ml BID@0800,1730 REJI Administration Amlodipine Besylate 10 mg 09/22/19 10:00 09/24/19 09:03 Norvasc - PO 10 mg DAILY REJI Administration Ascorbic Acid 500 mg 09/21/19 22:00 09/24/19 09:03 Vitamin C - PO 500 mg BID REJI Administration Collagenase 1 applic 09/22/19 10:15 09/24/19 09:03 Santyl - TP 1 applic DAILY REJI Administration Protocol Docusate Sodium 100 mg 09/21/19 22:00 09/24/19 06:23 Colace - PO 100 mg TID REJI Administration Pantoprazole Sodium 40 mg 09/22/19 10:00 09/24/19 09:03 Protonix - PO 40 mg DAILY REJI Administration Polyethylene Glycol 17 gm 09/22/19 22:00 09/24/19 06:24 Miralax (For Daily Use) - PO 17 gm TID REJI Administration Propranolol HCl 10 mg 09/21/19 22:00 09/24/19 06:23 Inderal - PO 10 mg TID REJI Administration ASSESSMENT/PLAN: 74 yo F with a hx of Hep C, cirrhosis, pancytopenia, splenomegaly, and HTN who was recently admitted on 06/27/2019 with COVID 19+ with imaging consistent with b/l PNA presented to the emergency department with abdominal pain, leg pain, and SOB. She is admitted with pericardial effusion 2/2 cirrhosis. Pt normally follows at [facility]. #SOB -likely 2/2 pericardial effusion -improved at this time -echo pending -PE ruled out -Pulm on board -Cardio on board -avoid diuresis due to pericardial effusion #hepatic cirrhosis -Hist of hep C s/p therapy -Hist of varices s/p banding -pancytopenic -cirrhosis with varices, ascites and splenomegally noted on CT -GI on board. Pt may need EGD -AFP, Hepatitis panel pending -c/w PPI, -will switch propranolol to nadolol per cardio recs #Pancytopenia -in the setting of cirrhosis and splenomegally -also with inguinal LAD noted on CT -GI on board -Heme/Onc consulted. Pt seen by Dr. Manjarrez in the past #splenic artery aneurysm -3 x 2.3 cm patent splenic artery aneurysm noted on CT -vascular surg consulted #Colonic diverticulosis -per pt had "normal" colonoscopy in the past #mild UPJ obstruction -? Contribution to her abdominal pain - Urology consulted : no intervention at this time #h/o covid 19 pna in june -CT with improving #?Increased PAP -mildly dilated Pulm Art on CT -echo pending -Cardio on board #L foot wound -santyl and vasc surgery consult #Hold dvt ppx due to bleed risk Visit type - Emergency Visit Emergency Visit: No - New Patient This patient is new to me today: No - Critical Care Critical Care patient: No ATTENDING PHYSICIAN STATEMENT I saw and evaluated the patient. I reviewed the resident's note and discussed the case with the resident. I agree with the resident's findings and plan as documented. SUBJECTIVE: OBJECTIVE: ASSESSMENT AND PLAN:
--- NOTE | 2019-09-24 12:59 | ECHO ---
Name: GRECIA CHOWDHURY Exam:Adult Echocardiogram Study Date: 09/24/2019 12:08 PM Age: 74 yrs Reason For Study: phtn MMode/2D Measurements & Calculations IVSd: 1.4 cm Ao root diam: 2.9 cm LVIDd: 4.3 cm LA dimension: 5.0 cm LVIDs: 3.3 cm LVPWd: 1.3 cm LVPWs: 1.8 cm EDV(Teich): 82.2 ml ESV(Teich): 44.5 ml LVOT diam: 2.0 cm TAPSE: 1.7 cm Doppler Measurements & Calculations MV E max griffin: 112.0 cm/sec Ao V2 max: 208.8 cm/sec MV A max griffin: 97.7 cm/sec Ao max P.2 mmHg MV E/A: 1.1 Ao V2 mean: 173.0 cm/sec MV dec time: 0.20 sec Ao mean P.0 mmHg Ao V2 VTI: 56.0 cm NUVIA(I,D): 1.9 cm2 NUVIA(V,D): 2.0 cm2 LV V1 max P.1 mmHg MR max griffin: 426.7 cm/sec LV V1 mean P.1 mmHg MR max P.5 mmHg LV V1 max: 133.3 cm/sec LV V1 mean: 95.4 cm/sec LV V1 VTI: 34.9 cm SV(LVOT): 107.1 ml TR max griffin: 354.1 cm/sec TR max P.8 mmHg PA V2 max: 142.8 cm/sec PA max P.2 mmHg Procedure A complete two-dimensional transthoracic echocardiogram was performed (2D, M-mode, Doppler and color flow Doppler). The patient was in normal sinus rhythm during the exam. Left Ventricle There is mild concentric left ventricular hypertrophy. The left ventricle is normal in size. The left ventricular ejection fraction is normal. Ejection Fraction = 65%. E/A reversal consistent with but no t diagnostic of poor LV compliance. The left ventricular wall motion is normal. Right Ventricle The right ventricle is normal in size and function. Atria The left atrium is moderately dilated. The right atrium is mildly dilated. Mitral Valve The mitral valve is normal in structure and function. There is moderate mitral regurgitation. Tricuspid Valve The tricuspid valve is normal. There is severe tricuspid regurgitation. There is severe pulmonary hypertension. Aortic Valve There is mild to moderate aortic valve thickening. Pulmonic Valve The pulmonic valve is not well seen, but is grossly normal. Great Vessels The aortic root is normal size. Pericardium/Pleura Small pericardial effusion (<1cm). There are no echocardiographic indications of cardiac tamponade. T here is no pleural effusion. Interpretation Summary There is mild concentric left ventricular hypertrophy. The left ventricle is normal in size. The left ventricular ejection fraction is normal. Ejection Fraction = 65%. The right ventricle is normal in size and function. The left atrium is moderately dilated. The right atrium is mildly dilated. There is moderate mitral regurgitation. There is severe tricuspid regurgitation. There is severe pulmonary hypertension. There is mild to moderate aortic valve thickening. Small pericardial effusion (<1cm) There are no echocardiographic indications of cardiac tamponade. MD Jluis Foss 09/24/2019 12:58 PM
--- NOTE | 2019-09-24 15:06 | CON.HO ---
Consult Consult Specialty:: Hematology Reason for Consultation:: Pancytopenia - History of Present Illness History of Present Illness: 74 y/o lady with a hx of Hep C, cirrhosis, pancytopenia, splenomegaly, and HTN who was recently admitted on 06/27/2019 with COVID 19+ with imaging consistent with b/l PNA presented to the emergency department with abdominal pain, leg pain, and SOB that has been ongoing since yesterday. Per the patient, she was admitted to [facility] with COVID symptoms. She since has not recovered per the patient. The patient has been home. She endorses having sharp stomach pain that is located. Hematology consulted for pancytopenia. 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: Alzheimer's Cardio/Vascular: Yes: HTN, Other (cardiomegaly/pericardial effusion) Pulmonary: Yes: Other (covid pneumonitis june) Gastrointestinal: Yes: Esophageal Varices, Other (hep c/cirrhosis/varicies/splenomegaly/ascites) Hepatobiliary: Yes: Cirrhosis Renal/: No: Renal Failure ...: No Infectious Disease: Yes: Other (covid 19 in june 2019) Psych: No: Addictions Musculoskeletal: Yes: Osteoarthritis Rheumatology: No: Rheumatoid Arthritis Endocrine: No: Diabetes Mellitus, Hypothyroidism - Past Surgical History Past Surgical History: Yes: Colonoscopy, Upper Endoscopy - Alcohol/Substance Use Hx Alcohol Use: No History of Substance Use: reports: None - Smoking History Smoking history: Never smoked Have you smoked in the past 12 months: No - Social History Usual Living Arrangement: With Child ADL: Independent History of Recent Travel: No Home Medications - Allergies Allergies/Adverse Reactions: Allergies Allergy/AdvReac Type Severity Reaction Status Date / Time No Known Allergies Allergy Verified 06/27/19 00:33 - Home Medications Home Medications: Ambulatory Orders Amino Acids/Protein Hydrolys [Prosource No Carb Liquid Pkt] 30 ml PO BID@0800,1730 #60 packet 07/16/19 Amlodipine Besylate [Norvasc -] 10 mg PO DAILY #30 tablet 07/16/19 Ascorbic Acid [Vitamin C -] 500 mg PO BID #60 tablet 07/16/19 Cholecalciferol (Vitamin D3) [Vitamin D3 -] 1,000 unit PO DAILY #30 tab 07/16/19 Collagenase Clostridium Hist. [Santyl -] 1 applic TP DAILY #1 tube 07/16/19 Docusate Sodium [Colace -] 100 mg PO TID #90 capsule 07/16/19 Multivitamins [Multivit ([facility] Formulary)] 1 tab PO DAILY #30 tab 07/16/19 Zinc Sulfate [Orazinc -] 220 mg PO DAILY #30 capsule 07/16/19 propRANOLol HCL [Inderal -] 10 mg PO TID #90 tablet 07/16/19 Latanoprost 0.005% Eye Drop HS 09/22/19 Review of Systems - Review of Systems Constitutional: reports: No Symptoms, Chills Eyes: reports: No Symptoms HENT: reports: No Symptoms Neck: reports: No Symptoms Cardiovascular: reports: No Symptoms Respiratory: reports: No Symptoms Gastrointestinal: reports: No Symptoms Genitourinary: reports: No Symptoms Musculoskeletal: reports: No Symptoms Integumentary: reports: No Symptoms Physical Exam Vital Signs: Vital Signs Temperature 98.3 F 09/24/19 13:37 Pulse Rate 63 09/24/19 13:37 Respiratory Rate 18 09/24/19 13:37 Blood Pressure 138/72 09/24/19 13:37 O2 Sat by Pulse Oximetry (%) 100 09/24/19 09:00 Constitutional: Yes: Well Nourished, No Distress Eyes: Yes: WNL, Conjunctiva Clear HENT: Yes: WNL, Atraumatic, Normocephalic Neck: Yes: WNL, Supple, Trachea Midline Cardiovascular: Yes: WNL, Regular Rate and Rhythm Respiratory: Yes: WNL, Regular Gastrointestinal: Yes: WNL, Normal Bowel Sounds, Soft Musculoskeletal: Yes: WNL Extremities: Yes: WNL Labs: CBC, BMP 09/24/19 06:20 09/24/19 06:20 Assessment/Plan 74 y/o lady with a hx of Hep C, cirrhosis, pancytopenia, splenomegaly, and HTN who was recently admitted on 06/27/2019 with COVID 19+ with imaging consistent with b/l PNA presented to the emergency department with abdominal pain, leg pain, and SOB that has been ongoing since yesterday. Per the patient, she was admitted to [facility] with COVID symptoms. She since has not recovered per the patient. The patient has been home. She endorses having sharp stomach pain that is located. Hematology consulted for pancytopenia. She mentioned has been cytopenic since [facility] in [place] Recommend: 1) Pancytopenia in the setting of cirrhosis and splenomegaly. Pt mentioned has had it for a significant after her HepC diagnosis. 2) Recent COVID infection which also maybe associated with Cytopenias 3) If ANC less than 500 consider OI prophylaxis. (Valtrex, Levaquin and Fluconazole) 4) Follow-up with Dr. Donohue outpatient 5) Thank you very much for this consultation
[2019-09-24] MEDS ORDERED: FLUCONAZOLE 100 MG TABLET (UD) PO SCH (15:45)
[2019-09-24 19:09] LABS: HEP B CORE AB, TOT Negative (Negative)
--- NOTE | 2019-09-24 19:17 | PN ---
Progress Note (short form) - Note Progress Note: VAscular Surgery Left foot wound plantar aspect for a long time as per patient. Wound is clean. Pt has palpable pulses -- DP and PT. Santyl to wound daily Abd CT reviewed -- 3x2 cm splenic aneurysm at hilum. No need for surgery right now. If the aneurysm gets bigger, pt will probably need a splenectomy. Can ask IR for input -- maybe they can coil the aneurysm. Can Tadeo DO
--- NOTE | 2019-09-24 19:18 | PN ---
Teaching Attending Note Name of Resident: Keven Del Toro ATTENDING PHYSICIAN STATEMENT I saw and evaluated the patient. I reviewed the resident's note and discussed the case with the resident. I agree with the resident's findings and plan as documented. 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 OBJECTIVE: GA comfortable, NAD HEENT NC/AT, mild JVD present, neck supple CHest coarse b/l BS w/ scattered rhonchi CVs S1, S2+, CAROL+ Abd SOft, NT, ND, BS+ Ext 1+ LE edema b/l Vital Signs - 24 hr 09/23/19 09/23/19 09/24/19 21:00 22:00 02:00 Temperature 98 F 98.5 F Pulse Rate 65 64 Respiratory 18 19 Rate Blood Pressure 142/72 114/58 L O2 Sat by Pulse 99 Oximetry (%) 09/24/19 09/24/19 09/24/19 05:43 09:00 09:20 Temperature 97.7 F 97.9 F Pulse Rate 74 72 Respiratory 18 18 Rate Blood Pressure 126/57 L 126/59 L O2 Sat by Pulse 100 Oximetry (%) 09/24/19 09/24/19 13:37 16:34 Temperature 98.3 F 97.8 F Pulse Rate 63 65 Respiratory 18 18 Rate Blood Pressure 138/72 128/54 L O2 Sat by Pulse 96 Oximetry (%) Microbiology 09/21/19 11:40 Urine - Urine Clean Catch Urine Culture - Final Normal Urogenital Laura Laboratory Results - last 24 hr 09/21/19 09/23/19 09/24/19 15:18 06:44 06:00 WBC RBC Hgb Hct MCV MCH MCHC RDW Plt Count MPV Absolute Neuts (auto) Neutrophils % Neutrophils % (Manual) Band Neutrophils % Lymphocytes % Lymphocytes % (Manual) Monocytes % Monocytes % (Manual) Eosinophils % Eosinophils % (Manual) Basophils % Basophils % (Manual) Myelocytes % (Man) Promyelocytes % (Man) Blast Cells % (Manual) Nucleated RBC % Metamyelocytes Hypochromia Platelet Estimate Polychromasia Poikilocytosis Anisocytosis Microcytosis Macrocytosis Sodium Potassium Chloride Carbon Dioxide Anion Gap BUN Creatinine Est GFR (CKD-EPI)AfAm Est GFR (CKD-EPI)NonAf Random Glucose Calcium Tumor Marker AFP 6.6 Stool Occult Blood Negative COVID-19 (ANAIS) Not detected Hep A IgM Ab Confirm Negative Hepatitis A Ab Total Positive H Hep Bs Antigen Negative Hep Bs Antibody Non reactive Hep B Core Total Ab Negative Hep B Core IgM Ab Negative Hepatitis Be Antibody Negative Hepatitis Be Antigen Negative 09/24/19 09/24/19 06:20 06:20 WBC 1.4 L* RBC 2.88 L Hgb 8.3 L Hct 25.4 L MCV 88.1 MCH 28.7 MCHC 32.6 RDW 15.7 H Plt Count 45 L MPV 7.5 Absolute Neuts (auto) 0.9 L Neutrophils % 63.3 Neutrophils % (Manual) 67.7 Band Neutrophils % 0.0 Lymphocytes % 18.9 Lymphocytes % (Manual) 13.5 Monocytes % 14.0 H Monocytes % (Manual) 12 H Eosinophils % 3.4 Eosinophils % (Manual) 6.3 H D Basophils % 0.4 Basophils % (Manual) 1.0 D Myelocytes % (Man) 0 Promyelocytes % (Man) 0 Blast Cells % (Manual) 0 Nucleated RBC % 0 Metamyelocytes 0 Hypochromia 0 Platelet Estimate Decreased Polychromasia 0 Poikilocytosis 0 Anisocytosis 2+ Microcytosis 2+ Macrocytosis 0 Sodium 144 Potassium 3.7 Chloride 112 H Carbon Dioxide 25 Anion Gap 7 L BUN 17.8 Creatinine 1.0 Est GFR (CKD-EPI)AfAm 63.38 Est GFR (CKD-EPI)NonAf 54.68 Random Glucose 97 Calcium 8.1 L Tumor Marker AFP Stool Occult Blood COVID-19 (ANAIS) Hep A IgM Ab Confirm Hepatitis A Ab Total Hep Bs Antigen Hep Bs Antibody Hep B Core Total Ab Hep B Core IgM Ab Hepatitis Be Antibody Hepatitis Be Antigen Home Medications Medication Instructions Recorded Amino Acids/Protein Hydrolys 30 ml PO BID@0800,1730 #60 packet 07/16/19 [Prosource No Carb Liquid Pkt] Amlodipine Besylate [Norvasc -] 10 mg PO DAILY #30 tablet 07/16/19 Ascorbic Acid [Vitamin C -] 500 mg PO BID #60 tablet 07/16/19 Cholecalciferol (Vitamin D3) 1,000 unit PO DAILY #30 tab 07/16/19 [Vitamin D3 -] Collagenase Clostridium Hist. 1 applic TP DAILY #1 tube 07/16/19 [Santyl -] Docusate Sodium [Colace -] 100 mg PO TID #90 capsule 07/16/19 Multivitamins [Multivit ([facility] 1 tab PO DAILY #30 tab 07/16/19 Formulary)] Zinc Sulfate [Orazinc -] 220 mg PO DAILY #30 capsule 07/16/19 propRANOLol HCL [Inderal -] 10 mg PO TID #90 tablet 07/16/19 Latanoprost 0.005% Eye Drop HS 09/22/19 Current Medications Generic Name Dose Route Start Last Admin Trade Name Freq PRN Reason Stop Dose Admin Acetaminophen 650 mg 09/21/19 16:49 09/22/19 21:14 Tylenol - PO 650 mg Q6H PRN Administration Fever Or Pain Albuterol Sulfate 2 puff 09/22/19 07:30 Ventolin Hfa Inhaler - IH Q4H PRN SHORT OF BREATH/WHEEZING Amino Acids 30 ml 09/21/19 17:30 09/24/19 18:17 Prosource No Carb Liquid Pkt PO 30 ml BID@0800,1730 REJI Administration Amlodipine Besylate 10 mg 09/22/19 10:00 09/24/19 09:03 Norvasc - PO 10 mg DAILY REJI Administration Ascorbic Acid 500 mg 09/21/19 22:00 09/24/19 09:03 Vitamin C - PO 500 mg BID REJI Administration Collagenase 1 applic 09/22/19 10:15 09/24/19 09:03 Santyl - TP 1 applic DAILY REJI Administration Protocol Docusate Sodium 100 mg 09/21/19 22:00 09/24/19 13:03 Colace - PO 100 mg TID REJI Administration Levofloxacin 500 mg 09/24/19 15:45 09/24/19 16:21 Levaquin - PO 500 mg DAILY@0600 REJI Administration Nadolol 20 mg 09/25/19 10:00 Corgard - PO DAILY REJI Pantoprazole Sodium 40 mg 09/22/19 10:00 09/24/19 09:03 Protonix - PO 40 mg DAILY REJI Administration Polyethylene Glycol 17 gm 09/22/19 22:00 09/24/19 13:03 Miralax (For Daily Use) - PO Not Given TID REJI Valacyclovir HCl 1,000 mg 09/24/19 22:00 Valtrex - PO BID REJI ASSESSMENT AND PLAN: 74 F r/o Pericardial Effusion Severe TR/NC h/o COVID19 Pneumonia Pancytopenia Hep C Cirrhosis Splenic Artery Aneurysm HTN HLD Plan: Echo findings suggestive of severe chronic TR/NC, minimal pericardial effusion Avoid fluid overload, switched BB to Nadolol as per Cardio recs Awaiting surgery evaluation Correct electrolytes PRN If ANC <500, start Valcyclovir/Fluconazole/Cipro for ppx DVT ppx: SCD
[2019-09-24] MEDS: valACYclovir HCL 500 MG TABLET (FP) PO SCH (22:02)
[2019-09-25 07:25] LABS: HEMOGLOBIN 8.6 GM/dL (10.7-15.3)
[2019-09-25 07:41] LABS: BASO % 0.4 % (0-2.0); EOS % 2.7 % (0-4.5); HEMATOCRIT 26.1 % (32.4-45.2); LYMPH % 15.1 % (8-40); MCH 28.6 pg (25.7-33.7); MCHC 32.9 g/dl (32.0-36.0); MEAN CELL VOLUME 87.1 fl (80-96); MEAN PLT VOLUME 7.1 fl (7.5-11.1); MONO % 11.6 % (3.8-10.2); NEUT % 70.2 % (42.8-82.8); PLATELET COUNT 39 K/MM3 (134-434)
--- NOTE | 2019-09-25 07:56 | PN ---
Progress Note, Physician History of Present Illness: pulmonary alert,no distress,dyspnea improving,min cough - Current Medication List Current Medications: Active Medications Acetaminophen (Tylenol -) 650 mg PO Q6H PRN PRN Reason: Fever Or Pain Last Admin: 09/22/19 21:14 Dose: 650 mg Documented by: Albuterol Sulfate (Ventolin Hfa Inhaler -) 2 puff IH Q4H PRN PRN Reason: SHORT OF BREATH/WHEEZING Amino Acids (Prosource No Carb Liquid Pkt) 30 ml PO BID@0800,1730 [facility] Last Admin: 09/24/19 18:17 Dose: 30 ml Documented by: Amlodipine Besylate (Norvasc -) 10 mg PO DAILY [facility] Last Admin: 09/24/19 09:03 Dose: 10 mg Documented by: Ascorbic Acid (Vitamin C -) 500 mg PO BID [facility] Last Admin: 09/24/19 22:02 Dose: 500 mg Documented by: Collagenase (Santyl -) 1 applic TP DAILY [facility]; Protocol Last Admin: 09/24/19 09:03 Dose: 1 applic Documented by: Docusate Sodium (Colace -) 100 mg PO TID [facility] Last Admin: 09/24/19 22:02 Dose: 100 mg Documented by: Levofloxacin (Levaquin -) 500 mg PO DAILY@0600 [facility] Last Admin: 09/24/19 16:21 Dose: 500 mg Documented by: Nadolol (Corgard -) 20 mg PO DAILY [facility] Pantoprazole Sodium (Protonix -) 40 mg PO DAILY [facility] Last Admin: 09/24/19 09:03 Dose: 40 mg Documented by: Polyethylene Glycol (Miralax (For Daily Use) -) 17 gm PO TID [facility] Last Admin: 09/24/19 22:02 Dose: Not Given Documented by: Valacyclovir HCl (Valtrex -) 1,000 mg PO BID [facility] Last Admin: 09/24/19 22:02 Dose: 1,000 mg Documented by: - Objective Vital Signs: Vital Signs Temperature 97.6 F 09/25/19 01:37 Pulse Rate 76 09/25/19 01:37 Respiratory Rate 18 09/25/19 01:37 Blood Pressure 128/60 09/25/19 01:37 O2 Sat by Pulse Oximetry (%) 97 09/24/19 21:00 Constitutional: Yes: Well Nourished, Calm Eyes: Yes: WNL HENT: Yes: WNL Neck: Yes: WNL Cardiovascular: Yes: Regular Rate and Rhythm, S1, S2 Respiratory: Yes: CTA Bilaterally Gastrointestinal: Yes: Normal Bowel Sounds, Soft Extremities: Yes: WNL Edema: No Labs: INR, PTT Problem List - Problems (1) Pericardial effusion without cardiac tamponade Code(s): I31.3 - PERICARDIAL EFFUSION (NONINFLAMMATORY) (2) COVID-19 virus infection Code(s): U07.1 - COVID POSITIVE (3) HCV (hepatitis C virus) Code(s): B19.20 - UNSPECIFIED VIRAL HEPATITIS C WITHOUT HEPATIC COMA (4) HTN (hypertension) Code(s): I10 - ESSENTIAL (PRIMARY) HYPERTENSION Qualifiers: Hypertension type: essential hypertension Qualified Code(s): I10 - Essential (primary) hypertension (5) Pancytopenia Code(s): D61.818 - OTHER PANCYTOPENIA Assessment/Plan A/P Pericardial Effusion small,- tamponade h/o COVID19 Pneumonia Pancytopenia Hep C Cirrhosis Splenic Artery Aneurysm HTN - O2 to keep SpO2 >90% - inhaled bronchodilators as needed - monitor lytes ,cbc - REPEAT COVID NEGATIVE DR COURTNEY
[2019-09-25 08:11] LABS: BLOOD UREA NITROGEN 18.6 mg/dL (7-18); CALCIUM 8.2 mg/dL (8.5-10.1); POTASSIUM 3.4 mmol/L (3.5-5.1)
[2019-09-25 08:16] LABS: CREATININE 0.9 mg/dL (0.55-1.3)
[2019-09-25] MEDS ORDERED: PT OWN MED DRAWER 7, Y5N ONE (09:15)
[2019-09-25] MEDS ORDERED: NADOLOL 20 MG TABLET (FP) PO SCH (10:00)
[2019-09-25] MEDS: valACYclovir HCL 500 MG TABLET (FP) PO SCH (10:04)
[2019-09-25] MEDS: amLODIPine BESYLATE 10 MG TABLET (FP) PO SCH (10:04)
[2019-09-25] MEDS: PANTOPRAZOLE 40 MG TABLET PO SCH (10:05)
[2019-09-25] MEDS: AMINO ACIDS/PROTEIN HYDROLYS 30 ML LIQUID.PKT PO SCH ×2 (10:05→16:54)
[2019-09-25] MEDS: ASCORBIC ACID 500 MG TABLET (FP) PO SCH (10:05)
[2019-09-25] MEDS: DOCUSATE SODIUM 100 MG CAPSULE (FP) PO SCH ×2 (10:06→13:40)
[2019-09-25] MEDS: COLLAGENASE CLOSTRIDIUM HIST. 30 GRAMS TUBE TP SCH (10:07)
[2019-09-25 10:17] LABS: ANISOCYTOSIS 0; MACROCYTOSIS 0; PLATELET ESTIMATE DECREASED
--- NOTE | 2019-09-25 10:31 | PN ---
Progress Note, Physician History of Present Illness: No further chest or abd pain or dyspnea. - Current Medication List Current Medications: Active Medications Acetaminophen (Tylenol -) 650 mg PO Q6H PRN PRN Reason: Fever Or Pain Last Admin: 09/22/19 21:14 Dose: 650 mg Documented by: Albuterol Sulfate (Ventolin Hfa Inhaler -) 2 puff IH Q4H PRN PRN Reason: SHORT OF BREATH/WHEEZING Amino Acids (Prosource No Carb Liquid Pkt) 30 ml PO BID@0800,1730 [facility] Last Admin: 09/25/19 10:05 Dose: 30 ml Documented by: Amlodipine Besylate (Norvasc -) 10 mg PO DAILY [facility] Last Admin: 09/25/19 10:04 Dose: 10 mg Documented by: Ascorbic Acid (Vitamin C -) 500 mg PO BID [facility] Last Admin: 09/25/19 10:05 Dose: 500 mg Documented by: Collagenase (Santyl -) 1 applic TP DAILY [facility]; Protocol Last Admin: 09/25/19 10:07 Dose: 1 applic Documented by: Docusate Sodium (Colace -) 100 mg PO TID [facility] Last Admin: 09/25/19 10:06 Dose: Not Given Documented by: Levofloxacin (Levaquin -) 500 mg PO DAILY@0600 [facility] Last Admin: 09/25/19 10:06 Dose: 500 mg Documented by: Nadolol (Corgard -) 20 mg PO DAILY [facility] Last Admin: 09/25/19 10:05 Dose: 20 mg Documented by: Pantoprazole Sodium (Protonix -) 40 mg PO DAILY [facility] Last Admin: 09/25/19 10:05 Dose: 40 mg Documented by: Polyethylene Glycol (Miralax (For Daily Use) -) 17 gm PO TID [facility] Last Admin: 09/24/19 22:02 Dose: Not Given Documented by: Valacyclovir HCl (Valtrex -) 1,000 mg PO BID [facility] Last Admin: 09/25/19 10:04 Dose: 1,000 mg Documented by: - Objective Vital Signs: Vital Signs Temperature 98.2 F 09/25/19 10:00 Pulse Rate 71 09/25/19 10:00 Respiratory Rate 18 09/25/19 10:00 Blood Pressure 142/73 09/25/19 10:00 O2 Sat by Pulse Oximetry (%) 98 09/25/19 08:34 Constitutional: Yes: No Distress, Calm Neck: Yes: Supple Cardiovascular: Yes: Regular Rate and Rhythm Respiratory: Yes: Regular, Diminished Gastrointestinal: Yes: Normal Bowel Sounds, Soft Edema: No Labs: CBC, BMP 09/25/19 06:50 09/25/19 06:50 INR, PTT INR 1.35 (0.83-1.09) H 09/21/19 10:49 - ....Imaging EKG: Report Reviewed (Tele: NSR) Problem List - Problems (1) Pericardial effusion without cardiac tamponade Code(s): I31.3 - PERICARDIAL EFFUSION (NONINFLAMMATORY) (2) Hepatic cirrhosis due to chronic hepatitis C infection Code(s): B18.2 - CHRONIC VIRAL HEPATITIS C; K74.60 - UNSPECIFIED CIRRHOSIS OF LIVER (3) HTN (hypertension) Code(s): I10 - ESSENTIAL (PRIMARY) HYPERTENSION Qualifiers: Hypertension type: essential hypertension Qualified Code(s): I10 - E ssential (primary) hypertension (4) Varices of spleen Code(s): I86.8 - VARICOSE VEINS OF OTHER SPECIFIED SITES (5) Varices, esophageal Code(s): I85.00 - ESOPHAGEAL VARICES WITHOUT BLEEDING Qualifiers: Esophageal varices bleeding: without bleeding (6) Pancytopenia Code(s): D61.818 - OTHER PANCYTOPENIA Assessment/Plan 09/24/2019 Echo: Mild cLVH normal LV size and fxn LVEF 65%, normal RV size and fxn, mod LAE, mild RAUDEL, mod MR, severe TR, severe pulm HTN RVSP 77 mmHg, small pericardial effusion < [address] chest: at least moderate sized pericardial effusion, which may be mildly increased from 07/15/2019 CT. ASSESSMENT: 1. Pericardial effusion, etiology of which is unclear- repeat echocardiography study reviewed 2. Hypertensive cardiovascular disease 3. Diastolic dysfunction with pulm HTN 4. History of coronavirus/COVID 19 pneumonitis 5. History of chronic liver disease/hepatic cirrhosis/hepatitis C post therapy 6. Pancytopenia 7. Incidental finding of a splenic artery aneurysm Plan: 1. Changed to Nadolol 20 qd for portal hypertension 2. Continue Norvasc 10 qd, add Aldactone 25 qd 3. Vascular input for the above-noted incidental finding of splenic artery aneurysm appreciated
[2019-09-25] MEDS ORDERED: ONDANSETRON 4 MG/2 ML VIAL IVPUSH ONE (11:30)
[2019-09-25] MEDS ORDERED: POTASSIUM CHLORIDE TABS 20 MEQ TABLET.ER (FP) PO ONE (12:00)
[2019-09-25] MEDS ORDERED: SPIRONOLACTONE 25 MG TABLET PO SCH (13:00)
--- NOTE | 2019-09-25 13:10 | DS ---
Physical Exam: SUBJECTIVE: Patient seen and examined a bedside this morning. OBJECTIVE: Vital Signs Temperature 98.2 F 09/25/19 10:00 Pulse Rate 71 09/25/19 10:00 Respiratory Rate 18 09/25/19 10:00 Blood Pressure 142/73 09/25/19 10:00 O2 Sat by Pulse Oximetry (%) 98 09/25/19 08:34 PHYSICAL EXAM Gen: AAOx3, NAD HEENT: NCAT, EOMI Neck: no jvd noted Cardio: rrr, norm s1s2, 3/6 systolic murmur Pulm: cta b/l Abd: soft, LUQ tenderness, nondistended, NABS Ext: Lower extremity skin changes, moderate edema, L heel wound with minimal drainage LABS Laboratory Results - last 24 hr 09/23/19 09/25/19 09/25/19 06:44 06:29 06:50 WBC 1.0 L* RBC 3.00 L Hgb 8.6 L Hct 26.1 L MCV 87.1 MCH 28.6 MCHC 32.9 RDW 16.0 H Plt Count 39 L MPV 7.1 L Absolute Neuts (auto) 0.7 L Neutrophils % 70.2 Neutrophils % (Manual) 66.0 Band Neutrophils % 0.0 Lymphocytes % 15.1 D Lymphocytes % (Manual) 19.0 D Monocytes % 11.6 H Monocytes % (Manual) 9 Eosinophils % 2.7 Eosinophils % (Manual) 2.0 Basophils % 0.4 Basophils % (Manual) 2.0 Myelocytes % (Man) 0 Promyelocytes % (Man) 0 Blast Cells % (Manual) 0 Nucleated RBC % 1 H Metamyelocytes 2 D Hypochromia 0 Platelet Estimate Decreased Polychromasia 0 Poikilocytosis 0 Anisocytosis 0 Microcytosis 0 Macrocytosis 0 Sodium Potassium Chloride Carbon Dioxide Anion Gap BUN Creatinine Est GFR (CKD-EPI)AfAm Est GFR (CKD-EPI)NonAf POC Glucometer 95 Random Glucose Calcium Hep A IgM Ab Confirm Negative Hepatitis A Ab Total Positive H Hep Bs Antigen Negative Hep Bs Antibody Non reactive Hep B Core Total Ab Negative Hep B Core IgM Ab Negative Hepatitis Be Antibody Negative Hepatitis Be Antigen Negative HCV Quantitation Hcv not detected HCV RNA log copies/mL TNP 09/25/19 06:50 WBC RBC Hgb Hct MCV MCH MCHC RDW Plt Count MPV Absolute Neuts (auto) Neutrophils % Neutrophils % (Manual) Band Neutrophils % Lymphocytes % Lymphocytes % (Manual) Monocytes % Monocytes % (Manual) Eosinophils % Eosinophils % (Manual) Basophils % Basophils % (Manual) Myelocytes % (Man) Promyelocytes % (Man) Blast Cells % (Manual) Nucleated RBC % Metamyelocytes Hypochromia Platelet Estimate Polychromasia Poikilocytosis Anisocytosis Microcytosis Macrocytosis Sodium 144 Potassium 3.4 L Chloride 113 H Carbon Dioxide 23 Anion Gap 8 BUN 18.6 H Creatinine 0.9 Est GFR (CKD-EPI)AfAm 71.98 Est GFR (CKD-EPI)NonAf 62.11 POC Glucometer Random Glucose 102 Calcium 8.2 L Hep A IgM Ab Confirm Hepatitis A Ab Total Hep Bs Antigen Hep Bs Antibody Hep B Core Total Ab Hep B Core IgM Ab Hepatitis Be Antibody Hepatitis Be Antigen HCV Quantitation HCV RNA log copies/mL HOSPITAL COURSE: Date of Admission:09/21/19 Date of Discharge: 09/25/19 Patient is a 74 yo F with a hx of Hep C, cirrhosis, pancytopenia, splenomegaly, and HTN who was recently admitted on 06/27/2019 with COVID 19+ with imaging consistent with b/l PNA presented to the emergency department with abdominal pain, leg pain, and SOB. She is admitted with pericardial effusion 2/2 cir rhosis. #SOB -likely 2/2 pericardial effusion -improved at this time -Echo: Mild cLVH normal LV size and fxn LVEF 65%, normal RV size and fxn, mod LAE, mild RAUDEL, mod MR, severe TR, severe pulm HTN RVSP 77 mmHg, small pericardial effusion < 1 cm -PE ruled out -Pulm on board -Cardio on board -avoid diuresis due to pericardial effusion #hepatic cirrhosis -Hist of hep C s/p therapy -Hist of varices s/p banding -pancytopenic -cirrhosis with varices, ascites and splenomegaly noted on CT -GI on board. -AFP, Hepatitis panel pending -c/w PPI, -will switch propranolol to nadolol per cardio recs #Pancytopenia -in the setting of cirrhosis and splenomegaly -also with inguinal LAD noted on CT -GI on board -Heme/Onc consulted. -Recommended Levaquin/Valacyclovir/Fluconazole for aNC<500 #splenic artery aneurysm -3 x 2.3 cm patent splenic artery aneurysm noted on CT -vascular surg consulted: no surgical intervention at this time #Colonic diverticulosis -per pt had "normal" colonoscopy in the past #mild UPJ obstruction Contribution to her abdominal pain - Urology consulted : no intervention at this time #h/o covid 19 pna in june -CT with improving #Increased PAP -mildly dilated Pulm Art on CT -Cardio on board #L foot wound -santyl and vasc surgery consult Minutes to complete discharge: 36 Discharge Summary Problems reviewed: Yes Reason For Visit: PERICARDIAL EFFUSION Current Active Problems Abdominal pain (Acute) Constipation (Acute) Hepatic cirrhosis due to chronic hepatitis C infection (Acute) History of severe acute respiratory syndrome coronavirus 2 (SARS-CoV-2) disease (Acute) Pericardial effusion without cardiac tamponade (Acute) Splenomegaly (Acute) Varices of spleen (Acute) Varices, esophageal (Acute) Condition: Stable - Instructions Diet, Activity, Other Instructions: Your visit You were admitted in the hospital because you had shortness of breath. This was likely because of fluid around the heart. You were seen by the cell room supervisor and recommended that you stop the propranolol and to switch you on Nadolol which we have started giving you while here in the hospital. You had a finding of splenic artery aneurysm. You were evaluated by a vascular surgeon and recommended follow up to monitor the aneurysm. Your blood counts are low. It could be caused by the cirrhosis or your previous COVID infection. You were evaluated by the vault keeper. Please follow up in 1 week for monitoring of your blood counts. You were noted to have liver cirrhosis on CT scan. This is a disease that scars the liver, that was likely caused by the hepatitis C infection. Cirrhosis can cause the blood vessels around the esophagus to swell or even burst and bleed. It is important that you follow up with the radio board operator announcer for further evaluation. You may need an endoscopy to evaluate your esophagus. Medications Please take note of the following changes to your medications: 1. STOP Propranolol 2. Start Nadolol 20mg daily 3. Fluconazole 400mg once daily. 4. Valacyclovir 500mg twice a day. 5. Levaquin 500mg daily Please continue your other home medications as prescribed. Follow up Please follow up your primary care doctor in 1 week. You will need a repeat blood work to check your blood counts. Please follow up with the following doctors. Referrals has been provided. Please call the office to schedule an appointment: Dr. Grey, pulmonology Dr. Kelley, cardiology Dr. Tadeo, vascular surgery Dr. Sanchez, gastroenterology Dr. Manjarrez, hematology/oncology Dr. Palma, urology Additional info If your symptoms get worse, call your doctor or return to the emergency department. Referrals: Mikhail Sanchez DO [Staff Physician] - Omar Palma MD [Staff Physician] - Sammy Kelley MD [Staff Physician] - Jayde Manjarrez MD [Staff Physician] - Can Tadeo DO [Staff Physician] - Sal Grey MD, MD [Staff Physician] - Albin Frost MD [Staff Physician] - Disposition: HOME - Home Medications Comprehensive Discharge Medication List: Ambulatory Orders Amino Acids/Protein Hydrolys [Prosource No Carb Liquid Pkt] 30 ml PO BID@0800,1730 #60 packet 07/16/19 Amlodipine Besylate [Norvasc -] 10 mg PO DAILY #30 tablet 07/16/19 Ascorbic Acid [Vitamin C -] 500 mg PO BID #60 tablet 07/16/19 Cholecalciferol (Vitamin D3) [Vitamin D3 -] 1,000 unit PO DAILY #30 tab 07/16/19 Collagenase Clostridium Hist. [Santyl -] 1 applic TP DAILY #1 tube 07/16/19 Docusate Sodium [Colace -] 100 mg PO TID #90 capsule 07/16/19 Multivitamins [Multivit ([facility] Formulary)] 1 tab PO DAILY #30 tab 07/16/19 Zinc Sulfate [Orazinc -] 220 mg PO DAILY #30 capsule 07/16/19 propRANOLol HCL [Inderal -] 10 mg PO TID #90 tablet 07/16/19 Latanoprost 0.005% Eye Drop HS 09/22/19 Albuterol Sulfate Inhaler - [Ventolin HFA Inhaler -] 2 puff IH Q4H PRN inhaler 09/25/19 Collagenase Clostridium Hist. [Santyl -] 1 applic TP DAILY tube 09/25/19 Fluconazole 400 mg PO DAILY #30 tablet 09/25/19 Nadolol [Corgard -] 20 mg PO DAILY #30 tablet 09/25/19 Pantoprazole Sodium [Protonix -] 40 mg PO DAILY tablet.ec 09/25/19 Polyethylene Glycol 3350 [Miralax 119 gm Btl -] 17 gm PO TID bottle 09/25/19 Valacyclovir HCl [Valtrex] 500 mg PO BID #60 tablet 09/25/19 levoFLOXacin [Levaquin -] 500 mg PO DAILY@0600 #30 tablet 09/25/19 This patient is new to me today: Yes Date on this admission: 09/25/19 Emergency Visit: Yes ED Registration Date: 09/21/19 Care time: The patient presented to the Emergency Department on the above date and was hospitalized for further evaluation of their emergent condition. Critical Care patient: No - Discharge Referral Referred to [facility] No ATTENDING PHYSICIAN STATEMENT I saw and evaluated the patient. I reviewed the resident's note and discussed the case with the resident. I agree with the resident's findings and plan as documented. SUBJECTIVE: OBJECTIVE: ASSESSMENT AND PLAN:
[2019-09-25] MEDS: POLYETHYLENE GLYCOL 3350 119 GM BTL PO SCH (13:49)
--- NOTE | 2019-09-25 17:28 | PN ---
Teaching Attending Note Name of Resident: Herminia Lopez ATTENDING PHYSICIAN STATEMENT I saw and evaluated the patient. I reviewed the resident's note and discussed the case with the resident. I agree with the resident's findings and plan as documented. SUBJECTIVE: Patient seen and examined at bedside, will need IR evaluation for possible coiling of splenic artery aneurysm. VSS. OBJECTIVE: GA comfortable, NAD HEENT NC/AT, mild JVD present, neck supple CHest coarse b/l BS w/ scattered rhonchi CVs S1, S2+, CAROL+ Abd SOft, NT, ND, BS+ Ext 1+ LE edema b/l Vital Signs - 24 hr 09/24/19 09/24/19 09/24/19 18:00 21:00 22:00 Temperature 98.4 F 97.8 F Pulse Rate 68 75 Respiratory 20 20 Rate Blood Pressure 127/58 L 138/62 O2 Sat by Pulse 97 Oximetry (%) 09/25/19 09/25/19 09/25/19 01:37 08:34 10:00 Temperature 97.6 F 98.2 F Pulse Rate 76 71 Respiratory 18 18 Rate Blood Pressure 128/60 142/73 O2 Sat by Pulse 98 Oximetry (%) 09/25/19 14:10 Temperature 98.4 F Pulse Rate 72 Respiratory 16 Rate Blood Pressure 135/74 O2 Sat by Pulse Oximetry (%) Microbiology 09/21/19 11:40 Urine - Urine Clean Catch Urine Culture - Final Normal Urogenital Laura Laboratory Tests 09/21/19 09/21/19 09/21/19 10:36 10:44 10:49 WBC 1.6 L* RBC 3.21 L Hgb 9.2 L Hct 28.5 L D MCV 88.6 MCH 28.7 MCHC 32.4 RDW 16.6 H Plt Count 55 L MPV 7.1 L D Absolute Neuts (auto) 1.2 L Neutrophils % 73.2 Neutrophils % (Manual) 76.5 Band Neutrophils % 0.0 Lymphocytes % 13.4 D Lymphocytes % (Manual) 15.3 D Monocytes % 9.4 Monocytes % (Manual) 3 L Eosinophils % 3.3 Eosinophils % (Manual) 2.1 Basophils % 0.7 Basophils % (Manual) 0.0 Myelocytes % (Man) 2 D Promyelocytes % (Man) 0 Blast Cells % (Manual) 0 Nucleated RBC % 0 Metamyelocytes 1 D Hypochromia 0 Platelet Estimate Decreased Polychromasia 0 Poikilocytosis 0 Anisocytosis 0 Microcytosis 0 Macrocytosis 0 Tear Drop Cells Ovalocytes PT with INR INR D-Dimer 2616 H Sodium 141 Potassium 3.6 Chloride 110 H Carbon Dioxide 24 Anion Gap 7 L BUN 12.2 Creatinine 0.8 Est GFR (CKD-EPI)AfAm 83.00 Est GFR (CKD-EPI)NonAf 71.61 POC Glucometer Random Glucose 116 H Hemoglobin A1c % Lactic Acid Calcium 8.4 L Magnesium 2.3 Total Bilirubin 1.0 AST 39 H ALT 23 Alkaline Phosphatase 113 Creatine Kinase 61 Troponin I < 0.02 Total Protein 8.1 Albumin 3.0 L Tumor Marker AFP TSH Urine Color Urine Appearance Urine pH Ur Specific [place] Urine Protein Urine Glucose (UA) Urine Ketones Urine Blood Urine Nitrite Urine Bilirubin Urine Urobilinogen Ur Leukocyte Esterase Stool Occult Blood COVID-19 (ANAIS) Hep A IgM Ab Confirm Hepatitis A Ab Total Hep Bs Antigen Hep Bs Antibody Hep B Core Total Ab Hep B Core IgM Ab Hepatitis Be Antibody Hepatitis Be Antigen HCV Quantitation HCV RNA log copies/mL SARS-CoV-2 IgG Ab SARS-CoV-2 IgM Ab 09/21/19 09/21/19 09/21/19 10:49 10:49 11:40 WBC RBC Hgb Hct MCV MCH MCHC RDW Plt Count MPV Absolute Neuts (auto) Neutrophils % Neutrophils % (Manual) Band Neutrophils % Lymphocytes % Lymphocytes % (Manual) Monocytes % Monocytes % (Manual) Eosinophils % Eosinophils % (Manual) Basophils % Basophils % (Manual) Myelocytes % (Man) Promyelocytes % (Man) Blast Cells % (Manual) Nucleated RBC % Metamyelocytes Hypochromia Platelet Estimate Polychromasia Poikilocytosis Anisocytosis Microcytosis Macrocytosis Tear Drop Cells Ovalocytes PT with INR 16.00 H INR 1.35 H D-Dimer Sodium Potassium Chloride Carbon Dioxide Anion Gap BUN Creatinine Est GFR (CKD-EPI)AfAm Est GFR (CKD-EPI)NonAf POC Glucometer Random Glucose Hemoglobin A1c % Lactic Acid 0.8 Calcium Magnesium Total Bilirubin AST ALT Alkaline Phosphatase Creatine Kinase Troponin I Total Protein Albumin Tumor Marker AFP TSH Urine Color Yellow Urine Appearance Clear Urine pH 6.5 D Ur Specific [place] 1.020 Urine Protein 3+ H Urine Glucose (UA) Negative Urine Ketones Negative Urine Blood 1+ H Urine Nitrite Negative Urine Bilirubin Negative Urine Urobilinogen 0.2 Ur Leukocyte Esterase Negative Stool Occult Blood COVID-19 (ANAIS) Hep A IgM Ab Confirm Hepatitis A Ab Total Hep Bs Antigen Hep Bs Antibody Hep B Core Total Ab Hep B Core IgM Ab Hepatitis Be Antibody Hepatitis Be Antigen HCV Quantitation HCV RNA log copies/mL SARS-CoV-2 IgG Ab SARS-CoV-2 IgM Ab 09/21/19 09/22/19 09/22/19 15:18 05:40 05:40 WBC 1.4 L* RBC 2.90 L Hgb 8.3 L Hct 25.6 L MCV 88.2 MCH 28.7 MCHC 32.5 RDW 16.2 H Plt Count 47 L MPV 7.7 Absolute Neuts (auto) 0.9 L Neutrophils % 67.2 Neutrophils % (Manual) 79.4 Band Neutrophils % 1.0 Lymphocytes % 14.8 Lymphocytes % (Manual) 11.4 D Monocytes % 14.1 H Monocytes % (Manual) 7 D Eosinophils % 3.5 Eosinophils % (Manual) 1.0 Basophils % 0.4 Basophils % (Manual) 0.0 Myelocytes % (Man) 0 D Promyelocytes % (Man) 0 Blast Cells % (Manual) 0 Nucleated RBC % 0 Metamyelocytes 0 D Hypochromia 0 Platelet Estimate Decreased Polychromasia 1+ Poikilocytosis Anisocytosis 1+ Microcytosis Macrocytosis 0 Tear Drop Cells Ovalocytes PT with INR INR D-Dimer Sodium 142 Potassium 3.5 Chloride 110 H Carbon Dioxide 24 Anion Gap 8 BUN 10.2 Creatinine 0.8 Est GFR (CKD-EPI)AfAm 83.00 Est GFR (CKD-EPI)NonAf 71.61 POC Glucometer Random Glucose 90 Hemoglobin A1c % Lactic Acid Calcium 7.9 L Magnesium Total Bilirubin 1.0 AST 30 ALT 20 Alkaline Phosphatase 93 Creatine Kinase 48 Troponin I < 0.02 Total Protein 6.5 Albumin 2.4 L Tumor Marker AFP TSH 4.07 H Urine Color Urine Appearance Urine pH Ur Specific [place] Urine Protein Urine Glucose (UA) Urine Ketones Urine Blood Urine Nitrite Urine Bilirubin Urine Urobilinogen Ur Leukocyte Esterase Stool Occult Blood COVID-19 (ANAIS) Not detected Hep A IgM Ab Confirm Hepatitis A Ab Total Hep Bs Antigen Hep Bs Antibody Hep B Core Total Ab Hep B Core IgM Ab Hepatitis Be Antibody Hepatitis Be Antigen HCV Quantitation HCV RNA log copies/mL SARS-CoV-2 IgG Ab SARS-CoV-2 IgM Ab 09/22/19 09/22/19 09/22/19 05:40 09:00 20:00 WBC RBC Hgb Hct MCV MCH MCHC RDW Plt Count MPV Absolute Neuts (auto) Neutrophils % Neutrophils % (Manual) Band Neutrophils % Lymphocytes % Lymphocytes % (Manual) Monocytes % Monocytes % (Manual) Eosinophils % Eosinophils % (Manual) Basophils % Basophils % (Manual) Myelocytes % (Man) Promyelocytes % (Man) Blast Cells % (Manual) Nucleated RBC % Metamyelocytes Hypochromia Platelet Estimate Polychromasia Poikilocytosis Anisocytosis Microcytosis Macrocytosis Tear Drop Cells Ovalocytes PT with INR INR D-Dimer Sodium Potassium Chloride Carbon Dioxide Anion Gap BUN Creatinine Est GFR (CKD-EPI)AfAm Est GFR (CKD-EPI)NonAf POC Glucometer Random Glucose Hemoglobin A1c % < 3.5 L Lactic Acid Calcium Magnesium Total Bilirubin AST ALT Alkaline Phosphatase Creatine Kinase 58 Troponin I < 0.02 Total Protein Albumin Tumor Marker AFP TSH Urine Color Urine Appearance Urine pH Ur Specific [place] Urine Protein Urine Glucose (UA) Urine Ketones Urine Blood Urine Nitrite Urine Bilirubin Urine Urobilinogen Ur Leukocyte Esterase Stool Occult Blood COVID-19 ([facility]AS) Hep A IgM Ab Confirm Hepatitis A Ab Total Hep Bs Antigen Hep Bs Antibody Hep B Core Total Ab Hep B Core IgM Ab Hepatitis Be Antibody Hepatitis Be Antigen HCV Quantitation HCV RNA log copies/mL SARS-CoV-2 IgG Ab Positive H SARS-CoV-2 IgM Ab Negative 09/23/19 09/23/19 09/23/19 06:00 06:44 06:44 WBC 1.3 L* RBC 2.92 L Hgb 8.4 L Hct 26.3 L MCV 90.1 MCH 28.8 MCHC 32.0 RDW 16.6 H Plt Count 46 L MPV 7.8 Absolute Neuts (auto) 0.8 L Neutrophils % 63.8 Neutrophils % (Manual) 70.7 Band Neutrophils % 4.0 Lymphocytes % 19.2 D Lymphocytes % (Manual) 16.2 D Monocytes % 13.8 H Monocytes % (Manual) 7 Eosinophils % 3.0 Eosinophils % (Manual) 1.0 Basophils % 0.2 Basophils % (Manual) 0.0 Myelocytes % (Man) 0 Promyelocytes % (Man) 0 Blast Cells % (Manual) 0 Nucleated RBC % 1 H Metamyelocytes 0 Hypochromia 0 Platelet Estimate Decreased Polychromasia 1+ Poikilocytosis 1+ Anisocytosis 1+ Microcytosis 1+ Macrocytosis 0 Tear Drop Cells 1+ Ovalocytes 1+ PT with INR INR D-Dimer Sodium 144 Potassium 3.7 Chloride 112 H Carbon Dioxide 25 Anion Gap 7 L BUN 15.0 Creatinine 1.0 Est GFR (CKD-EPI)AfAm 63.38 Est GFR (CKD-EPI)NonAf 54.68 POC Glucometer Random Glucose 86 Hemoglobin A1c % Lactic Acid Calcium 7.9 L Magnesium Total Bilirubin AST ALT Alkaline Phosphatase Creatine Kinase Troponin I Total Protein Albumin Tumor Marker AFP 6.6 TSH Urine Color Urine Appearance Urine pH Ur Specific [place] Urine Protein Urine Glucose (UA) Urine Ketones Urine Blood Urine Nitrite Urine Bilirubin Urine Urobilinogen Ur Leukocyte Esterase Stool Occult Blood COVID-19 (ANAIS) Hep A IgM Ab Confirm Negative Hepatitis A Ab Total Positive H Hep Bs Antigen Negative Hep Bs Antibody Non reactive Hep B Core Total Ab Negative Hep B Core IgM Ab Negative Hepatitis Be Antibody Negative Hepatitis Be Antigen Negative HCV Quantitation Hcv not detected HCV RNA log copies/mL TNP SARS-CoV-2 IgG Ab SARS-CoV-2 IgM Ab 09/24/19 09/24/19 09/24/19 06:00 06:20 06:20 WBC 1.4 L* RBC 2.88 L Hgb 8.3 L Hct 25.4 L MCV 88.1 MCH 28.7 MCHC 32.6 RDW 15.7 H Plt Count 45 L MPV 7.5 Absolute Neuts (auto) 0.9 L Neutrophils % 63.3 Neutrophils % (Manual) 67.7 Band Neutrophils % 0.0 Lymphocytes % 18.9 Lymphocytes % (Manual) 13.5 Monocytes % 14.0 H Monocytes % (Manual) 12 H Eosinophils % 3.4 Eosinophils % (Manual) 6.3 H D Basophils % 0.4 Basophils % (Manual) 1.0 D Myelocytes % (Man) 0 Promyelocytes % (Man) 0 Blast Cells % (Manual) 0 Nucleated RBC % 0 Metamyelocytes 0 Hypochromia 0 Platelet Estimate Decreased Polychromasia 0 Poikilocytosis 0 Anisocytosis 2+ Microcytosis 2+ Macrocytosis 0 Tear Drop Cells Ovalocytes PT with INR INR D-Dimer Sodium 144 Potassium 3.7 Chloride 112 H Carbon Dioxide 25 Anion Gap 7 L BUN 17.8 Creatinine 1.0 Est GFR (CKD-EPI)AfAm 63.38 Est GFR (CKD-EPI)NonAf 54.68 POC Glucometer Random Glucose 97 Hemoglobin A1c % Lactic Acid Calcium 8.1 L Magnesium Total Bilirubin AST ALT Alkaline Phosphatase Creatine Kinase Troponin I Total Protein Albumin Tumor Marker AFP TSH Urine Color Urine Appearance Urine pH Ur Specific [place] Urine Protein Urine Glucose (UA) Urine Ketones Urine Blood Urine Nitrite Urine Bilirubin Urine Urobilinogen Ur Leukocyte Esterase Stool Occult Blood Negative COVID-19 ([facility]IS) Hep A IgM Ab Confirm Hepatitis A Ab Total Hep Bs Antigen Hep Bs Antibody Hep B Core Total Ab Hep B Core IgM Ab Hepatitis Be Antibody Hepatitis Be Antigen HCV Quantitation HCV RNA log copies/mL SARS-CoV-2 IgG Ab SARS-CoV-2 IgM Ab 09/25/19 09/25/19 09/25/19 06:29 06:50 06:50 WBC 1.0 L* RBC 3.00 L Hgb 8.6 L Hct 26.1 L MCV 87.1 MCH 28.6 MCHC 32.9 RDW 16.0 H Plt Count 39 L MPV 7.1 L Absolute Neuts (auto) 0.7 L Neutrophils % 70.2 Neutrophils % (Manual) 66.0 Band Neutrophils % 0.0 Lymphocytes % 15.1 D Lymphocytes % (Manual) 19.0 D Monocytes % 11.6 H Monocytes % (Manual) 9 Eosinophils % 2.7 Eosinophils % (Manual) 2.0 Basophils % 0.4 Basophils % (Manual) 2.0 Myelocytes % (Man) 0 Promyelocytes % (Man) 0 Blast Cells % (Manual) 0 Nucleated RBC % 1 H Metamyelocytes 2 D Hypochromia 0 Platelet Estimate Decreased Polychromasia 0 Poikilocytosis 0 Anisocytosis 0 Microcytosis 0 Macrocytosis 0 Tear Drop Cells Ovalocytes PT with INR INR D-Dimer Sodium 144 Potassium 3.4 L Chloride 113 H Carbon Dioxide 23 Anion Gap 8 BUN 18.6 H Creatinine 0.9 Est GFR (CKD-EPI)AfAm 71.98 Est GFR (CKD-EPI)NonAf 62.11 POC Glucometer 95 Random Glucose 102 Hemoglobin A1c % Lactic Acid Calcium 8.2 L Magnesium Total Bilirubin AST ALT Alkaline Phosphatase Creatine Kinase Troponin I Total Protein Albumin Tumor Marker AFP TSH Urine Color Urine Appearance Urine pH Ur Specific [place] Urine Protein Urine Glucose (UA) Urine Ketones Urine Blood Urine Nitrite Urine Bilirubin Urine Urobilinogen Ur Leukocyte Esterase Stool Occult Blood COVID-19 (ANAIS) Hep A IgM Ab Confirm Hepatitis A Ab Total Hep Bs Antigen Hep Bs Antibody Hep B Core Total Ab Hep B Core IgM Ab Hepatitis Be Antibody Hepatitis Be Antigen HCV Quantitation HCV RNA log copies/mL SARS-CoV-2 IgG Ab SARS-CoV-2 IgM Ab Home Medications Medication Instructions Recorded Amino Acids/Protein Hydrolys 30 ml PO BID@0800,1730 #60 packet 07/16/19 [Prosource No Carb Liquid Pkt] Amlodipine Besylate [Norvasc -] 10 mg PO DAILY #30 tablet 07/16/19 Ascorbic Acid [Vitamin C -] 500 mg PO BID #60 tablet 07/16/19 Cholecalciferol (Vitamin D3) 1,000 unit PO DAILY #30 tab 07/16/19 [Vitamin D3 -] Collagenase Clostridium Hist. 1 applic TP DAILY #1 tube 07/16/19 [Santyl -] Docusate Sodium [Colace -] 100 mg PO TID #90 capsule 07/16/19 Multivitamins [Multivit ([facility] 1 tab PO DAILY #30 tab 07/16/19 Formulary)] Zinc Sulfate [Orazinc -] 220 mg PO DAILY #30 capsule 07/16/19 propRANOLol HCL [Inderal -] 10 mg PO TID #90 tablet 07/16/19 Albuterol Sulfate Inhaler - 2 puff IH Q4H PRN inhaler 09/25/19 [Ventolin HFA Inhaler -] Collagenase Clostridium Hist. 1 applic TP DAILY tube 09/25/19 [Santyl -] Fluconazole 400 mg PO DAILY #30 tablet 09/25/19 Nadolol [Corgard -] 20 mg PO DAILY #30 tablet 09/25/19 Pantoprazole Sodium [Protonix -] 40 mg PO DAILY tablet.ec 09/25/19 Polyethylene Glycol 3350 [Miralax 17 gm PO TID bottle 09/25/19 119 gm Btl -] Valacyclovir HCl [Valtrex] 500 mg PO BID #60 tablet 09/25/19 levoFLOXacin [Levaquin -] 500 mg PO DAILY@0600 #30 tablet 09/25/19 Current Medications Generic Name Dose Route Start Last Admin Trade Name Freq PRN Reason Stop Dose Admin Acetaminophen 650 mg 09/21/19 16:49 09/22/19 21:14 Tylenol - PO 650 mg Q6H PRN Administration Fever Or Pain Albuterol Sulfate 2 puff 09/22/19 07:30 Ventolin Hfa Inhaler - IH Q4H PRN SHORT OF BREATH/WHEEZING Amino Acids 30 ml 09/21/19 17:30 09/25/19 16:54 Prosource No Carb Liquid Pkt PO 30 ml BID@0800,1730 REJI Administration Amlodipine Besylate 10 mg 09/22/19 10:00 09/25/19 10:04 Norvasc - PO 10 mg DAILY REJI Administration Ascorbic Acid 500 mg 09/21/19 22:00 09/25/19 10:05 Vitamin C - PO 500 mg BID REJI Administration Collagenase 1 applic 09/22/19 10:15 09/25/19 10:07 Santyl - TP 1 applic DAILY REJI Administration Protocol Docusate Sodium 100 mg 09/21/19 22:00 09/25/19 13:40 Colace - PO 100 mg TID REJI Administration Levofloxacin 500 mg 09/24/19 15:45 09/25/19 10:06 Levaquin - PO 500 mg DAILY@0600 REJI Administration Nadolol 20 mg 09/25/19 10:00 09/25/19 10:05 Corgard - PO 20 mg DAILY REJI Administration Pantoprazole Sodium 40 mg 09/22/19 10:00 09/25/19 10:05 Protonix - PO 40 mg DAILY REJI Administration Polyethylene Glycol 17 gm 09/22/19 22:00 09/25/19 13:49 Miralax (For Daily Use) - PO Not Given TID REJI Spironolactone 25 mg 09/25/19 13:00 09/25/19 13:40 Aldactone - PO 25 mg DAILY REJI Administration Valacyclovir HCl 1,000 mg 09/24/19 22:00 09/25/19 10:04 Valtrex - PO 1,000 mg BID REJI Administration ASSESSMENT AND PLAN: 74 F r/o Pericardial Effusion Severe TR/AK h/o COVID19 Pneumonia Pancytopenia Hep C Cirrhosis Splenic Artery Aneurysm HTN HLD Plan: Echo findings suggestive of severe chronic TR/AK, minimal pericardial effusion IR evaluation for possible splenic artery coiling Avoid fluid overload, cont. Nadolol as per Cardio recs Correct electrolytes PRN Cont. Valcyclovir/Fluconazole/Levofloxacin for ppx, obtain EKG in AM for QTc DVT ppx: SCD
[2019-09-25 17:45] VITALS: BP 137/75; PULSE 75; TEMP 97.9
== END 2019-09-25 19:21 | disposition home or self-care (01) | DRG 207 ==
LOC: JER 09:33 → JERBED 15:23 → J4S 22:40 → J4W 09-24 15:55
PROVIDERS: ADMIT Internal Medicine
DX: I31.3 Pericardial effusion (noninflammatory) (principal); B19.20 Unspecified viral hepatitis C without hepatic coma; I10 Essential (primary) hypertension; K74.60 Unspecified cirrhosis of liver; I51.7 Cardiomegaly; R16.1 Splenomegaly, not elsewhere classified; L97.929 Non-pressure chronic ulcer of unspecified part of left lower leg with unspecified severity; I86.8 Varicose veins of other specified sites; N13.30 Unspecified hydronephrosis; R18.8 Other ascites; I72.8 Aneurysm of other specified arteries; I85.10 Secondary esophageal varices without bleeding; D61.818 Other pancytopenia; E78.5 Hyperlipidemia, unspecified; K59.00 Constipation, unspecified; R31.29 Other microscopic hematuria
CPT/HCPCS: 36415; 71260-TC; 71275-TC; 74177-TC; 80048; 80053; 81003; 82105; 82272; 82550; 82962; 83036; 83605; 83735; 84443; 84484; 85025; 85379; 85610; 86038; 86704; 86706; 86707; 86708; 86709; 86769; 86769-59; 87086; 87340; 87522; 93005; 93010; 93306-TC; 93970-TC; 97116-GP; 97161-GP; 99285-25; Q9967; U0003

== ENCOUNTER 2020-01-02 11:54 | Inpatient (IN) | payer OTHER ==
[2020-01-02 12:07] VITALS: BMI 28.3
--- NOTE | 2020-01-02 12:22 | PDOC ---
History of Present Illness - General Chief Complaint: Shortness of Breath Stated Complaint: COUGH/ABD.PAIN Time Seen by Provider: 01/02/20 12:20 - History of Present Illness Initial Comments: 01/02/20 12:20 HPI: This is a 74 y/o guinean speaking female with a PMH of Hep C (treated, neg test 2019), cirrhosis, pancytopenia, splenomegaly, splenic artery aneurysm, pulmonary HTN, COVID+ in June, and HTN presenting to the ED due to worsening abdominal pain and SOB x1 week. She says that she has baseline abdominal pain and distention, however both have worsened over the past week. She is complaining of sharp LUQ pain. Her SOB is also increased baseline, and associated with central chest tightness and a cough. Patient is not on home oxygen. Patient last had a BM this am denies blood. Patient denies fever/chills, headache, lightheadedness, dysuria, diarrhea or constipation. ROS: GENERAL/CONSTITUTIONAL: No fever/chills, diaphoresis, or weakness. HEENT: No change in vision. No ear pain. No sore throat. CARDIOVASCULAR: Yes chest tightness, No palpitations. Yes bilateral edema. RESPIRATORY: Yes shortness of breath incrased from baseline, dyspnea with exertion, cough. No wheezing, or hemoptysis. GASTROINTESTINAL: Yes chronic abdominal pain increased from baseline, worse in LUQ. Increased distention, No nausea, vomiting, diarrhea or constipation. GENITOURINARY: No dysuria, frequency, or change in urination. MUSCULOSKELETAL: No joint or muscle swelling or pain. SKIN: No rash or hives NEUROLOGIC: No headache, vertigo, focal weakness, loss of consciousness, or gleason ge in strength/sensation. ENDOCRINE: No increased thirst. No unexplained weight loss. HEMATOLOGIC/LYMPHATIC: Pancytopenia PMH: PMH of Hep C (treated, neg test 2019), cirrhosis, pancytopenia, splenomegaly, pulmonary HTN, COVID+ in June, and HTN PSx: Social Hx: Denied etoh, tobacco, drug use Meds: See nurse note Allergies: See nurse note PE: GENERAL: Awake, alert, and fully oriented. Patient is ill-appearing. Jamaican speaking. Son is at bedside. HEENT: Normocephalic, atraumatic. PERRLA, EOMI. Scleral icterus NECK: Normal ROM and supple. No lymphadenopathy, JVD, or masses. No midline tenderness CARDIOVASCULAR: Regular rate and rhythm, normal S1 and S2 PULMONARY: No respiratory distress. Breath sounds equal, clear to auscultation bilaterally. No wheezes, rales or rhonchi. ABDOMEN: Hard and distended. Diffusely tender but increased in LUQ. Splenomegally and hepatomegally. No guarding, no rebound. EXTREMITIES: Lower extremities warm. Bilateral lower extremity edema. Clean 3cm wound on bottom of left foot. NEUROLOGICAL: Cranial nerves II through XII grossly intact. Normal speech. SKIN: Warm, Dry, normal turgor, 3cm clean wound on bottom of left foot. Normal capillary refill. MDM: 01/02/20 13:33 This is a 74 y/o guinean speaking female with a PMH of Hep C (treated, neg test 2019), cirrhosis, pancytopenia, splenomegaly, pulmonary HTN, COVID+ in June, and HTN presenting to the ED due to worsening abdominal distention, pain, and SOB x1 week. - Pancytopenia, afebrile but concern for infection - Saturating well on room air - Lungs clear - CBC, CMP, LA, Blood cultures, Urine culture - EKG, troponin, CXR - CT abdomen/pelvis ddx: SBP vs splenic infarct vs obstruction pericardial effusion vs heart failure vs pleural effusion 01/02/20 14:20 Labs notable: WBC 1.7 baseline Hgb 9.4 baseline Plt 38 baseline INR 1.35 PTT 40.1 Liver enzymes wnl Trop negative LA .7 01/02/20 14:29 EKG: No ST elevations or T wave inversions Sinus rhythm. Vent rate 68bpm MS 130, QRS 96, QT/QTc 436/462 01/02/20 17:16 CT ABDOMEN/ PELVIS IMPRESSION: The abdomen and pelvis demonstrate no definite interval change in comparison to CT performed on 09/21/2019. Hepatic cirrhosis is noted with associated marked splenomegaly, varices, and a small amount of ascites. There is again visualization of a patent 3 x 2.7 cm distal splenic artery aneurysm without CT evidence of rupture. Vascular surgery consultation is suggested, nonemergent versus emergent as clinically indicated. 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 No interval change is identified. Periodic imaging surveillance is suggested. Cholelithiasis. Colonic diverticulosis. Mild stable dilatation of the right renal collecting system which may be due to a mild UPJ obstruction. Periodic ultrasound surveillance is suggested. Stable mildly prominent bilateral inguinal lymph nodes. The partially imaged lower chest again demonstrates multichamber cardiomegaly as well as a pericardial effusion which is probably at least moderate in volume. Correlate with echocardiography. 01/02/20 17:25 - Patient signed out to [facility] - 2g Cefepime 01/02/20 22:23 Past History - Medical History Allergies/Adverse Reactions: Allergies Allergy/AdvReac Type Severity Reaction Status Date / Time No Known Allergies Allergy Verified 01/02/20 12:03 Home Medications: Ambulatory Orders Amlodipine Besylate [Norvasc -] 10 mg PO DAILY #30 tablet 07/16/19 Nadolol [Corgard -] 20 mg PO DAILY #30 tablet 09/25/19 Docusate Sodium [Colace -] 100 mg PO DAILY 01/02/20 Ferrous Sulfate 325 mg PO DAILY 01/02/20 Gabapentin 300 mg PO TID 01/02/20 Vitamin B Complex 1 each PO DAILY 01/02/20 Cardiac Disorders: (pericardial effusion) COPD: No GI Disorders: Yes HTN: Yes Liver Disease: Yes - Surgical History Gastric Stapling: No Lung Surgery: No - Immunization History Immunization Up to Date: No - Psycho-Social/Smoking History Smoking History: Never smoked Have you smoked in the past 12 months: No - Substance Abuse Hx (Audit-C & DAST Scrn) How often the patient has a drink containing alcohol: Never Score: In Men: 4 or > Positive; In Women: 3 or > Positive: 0 Screen Result (Pos requires Nsg. Audit-10AR): Negative In the last yr the pt used illegal drug/Rx for NonMed reason: No Score: Yes response is considered Positive: 0 Screen Result (Positive result requires Nsg. DAST-10): Negative *Physical Exam - Vital Signs Last Vital Signs Temp Pulse Resp BP Pulse Ox 97.6 F 74 20 159/73 97 01/02/20 12:03 01/02/20 12:03 01/02/20 12:03 01/02/20 12:03 01/02/20 12:03 ED Treatment Course - LABORATORY CBC & Chemistry Diagram: 01/02/20 13:00 01/02/20 13:00 Discharge - Discharge Information Problems reviewed: Yes Clinical Impression/Diagnosis: Cirrhosis Qualifiers: Hepatic cirrhosis type: unspecified hepatic cirrhosis Ascites presence: u nspecified Qualified Code(s): K74.60 - Unspecified cirrhosis of liver Condition: Guarded - Follow up/Referral - Patient Discharge Instructions - Post Discharge Activity
[2020-01-02 13:25] LABS: BASO % 0.4 % (0-2.0); EOS % 3.7 % (0-4.5); HEMATOCRIT 27.5 % (32.4-45.2); HEMOGLOBIN 9.4 GM/dL (10.7-15.3); MCH 31.1 pg (25.7-33.7); MCHC 34.3 g/dl (32.0-36.0); MEAN CELL VOLUME 90.5 fl (80-96); MEAN PLT VOLUME 7.3 fl (7.5-11.1); MONO % 9.6 % (3.8-10.2); NEUT % 73.3 % (42.8-82.8); PLATELET COUNT 38 K/MM3 (134-434); RBC 3.04 M/mm3 (3.60-5.2); RDW 17.4 % (11.6-15.6); VENOUS BASE EXCESS 0.4 mmol/L (-2-2); VENOUS PCO2 50.3 mmHg (38-52); VENOUS PH 7.346 (7.310-7.410); WHITE BLOOD COUNT 1.7 K/mm3 (4.0-10.0)
[2020-01-02 13:28] LABS: EPI CELLS 24 /uL (0-25.1); HYALINE CASTS 2 /uL (0-3.1); PH,URINE 6.5 (5.0-8.0); URINE APPEARANCE CLEAR; URINE BACTERIA 54 /uL (0-1359); URINE BILIRUBIN NEGATIVE (NEGATIVE); URINE COLOR YELLOW; URINE GLUCOSE (UA) NEGATIVE (NEGATIVE); URINE KETONE NEGATIVE (NEGATIVE); URINE LEUK ESTERASE NEGATIVE (NEGATIVE); URINE NITRITE NEGATIVE (NEGATIVE); URINE PROTEIN 3+ (NEGATIVE); URINE RBC 78 /uL (0-23.9); URINE UROBILINOGEN 0.2 mg/dL (0.2-1.0); URINE WBC 25 /uL (0-25.8)
--- NOTE | 2020-01-02 13:32 | PDOC ---
Documentation entered by Aggie Jay SCRIBE, acting as scribe for Angela Vasquez MD. Angela Vasquez MD: This documentation has been prepared by the Pierre hinton Xhesika, SCRIBE, under my direction and personally reviewed by me in its entirety. I confirm that the documentation accurately reflects all work, treatment, procedures, and medical decision making performed by me. Attending Attestation - Resident Resident Name: Beverly Yan - ED Attending Attestation I have performed the following: I have examined & evaluated the patient, The case was reviewed & discussed with the resident, I agree w/resident's findings & plan, Exceptions are as noted - HPI HPI: 01/02/20 12:26 The patient is a 74 year old female, with a significant PMH of HTN, HCV (treated with subsequent 2019 HCV test negative), cirrhosis, pancytopenia, splenomegaly, splenic artery aneurysm, who presents to the ED for evaluation of increased SOB and increased in her chronic L sided abdominal pain and distention x1 week, progressively worsening. Pt notes she is not on home O2. Pt states she had COVID and bilateral PNA in June 2019. She did have BM today which she notes was dark but otherwise normal, and she had taken an iron supplement and was expecting it to be dark. The patient denies chest pain, headache and dizziness. Denies fever, chills, cough, nausea, vomiting, diarrhea and constipation. Denies dysuria, frequency, urgency and hematuria. Allergies: NKA, NKDA PCP: Dr. Clark 01/02/20 14:09 - Physicial Exam PE: 01/02/20 13:54 GENERAL: chronically ill-appearing, A/Ox4, no distress, answers questions appropriately, Slovak-speaking HEENT: PERRLA, EOMI, moist mucous membranes, scleral icterus and jaundice NECK/BACK: no midline ttp, no spinal step-off or deformity, no hematoma, full ROM, neck supple CARDIOVASCULAR: regular rate/rhythm, 2/6 systolic murmur, strong peripheral pulses, capillary refill <2 seconds, extremities wwp, no edema LUNGS/RESPIRATORY: no respiratory distress, CTAB GI/ABDOMEN: distended and a bit tight, diffuse mild tenderness with marked splenomegaly, symmetric [id number], normoactive BS, soft, no ttp, no midline pulsatile masses : no CVA tenderness MSK/EXTREMITIES: no muscle atrophy, no acute deformity SKIN: warm and dry, no pallor, no jaundice, no rash, no pathologic-appearing bruising, no skin breakdown, no cuts, no lesions NEUROLOGICAL: GCS 15, CN II-XII grossly intact, 5/5 strength proximally and distally, no facial droop, no asterixis, no tremor, no tongue fasciculations - Medical Decision Making 01/02/20 13:58 [id number] with cirrhosis p/w increased chronic abdominal pain, increased abdominal swelling, and SOB worsened from baseline. Initial Vital Signs Temp Pulse Resp BP Pulse Ox 97.6 F 74 20 159/73 97 01/02/20 12:03 01/02/20 12:03 01/02/20 12:03 01/02/20 12:03 01/02/20 12:03 Abdominal pain possibly d/t SBP, increased ascited (e.g. thrombosis?), constipation, less likely bowel perforation, hepatic encephalopathy, etc. Possible toxic/metabolic derangement, possible heart failure. SOB could be 2/2 hepatopulmonary syndrome or heart failure. Pt has known splenic artery aneurysm but unlikely the patient would have this indolent onset of worsening chronic pain if it had ruptured, patient not hypotensive, rupture does not fit this clinical picture. Provider Orders Category Date Time Status VENOUS BLOOD GAS Stat ABG 01/02/20 13:00 Completed TYPE AND SCREEN Stat Blood Bank 01/02/20 13:00 Received ABDOMEN & PELVIS CT WITH CONTR [CT] Stat CT Scan 01/02/20 14:02 Ordered EKG [ELECTROCARDIOGRAM] [CARD] Stat Cardiology 01/02/20 12:08 Ordered EKG needed NOW Care 01/02/20 12:08 Completed Insert Saline Lock NOW Care 01/02/20 13:06 Active CBC WITH DIFFERENTIAL Stat Lab 01/02/20 13:00 Received COMP METABOLIC PANEL Stat Lab 01/02/20 13:00 Received LACTIC ACID Stat Lab 01/02/20 14:02 Ordered LIPASE Stat Lab 01/02/20 13:00 Received PT & APTT Stat Lab 01/02/20 13:00 Completed TROPONIN I ([facility]) Stat Lab 01/02/20 13:00 Received UA ([facility]) ONLY Stat Lab 01/02/20 13:00 Completed BLOOD CULTURE Stat Micro 01/02/20 13:00 Ordered URINE CULTURE Stat Micro 01/02/20 13:00 Received IV Insert NOW Phy Order 01/02/20 13:06 Active CXRPORT [CHEST X-RAY PORTABLE*] [RAD] Stat Radiology 01/02/20 13:07 Ordered Lab Results WBC 1.7 K/mm3 (4.0-10.0) L* 01/02/20 13:00 RBC 3.04 M/mm3 (3.60-5.2) L 01/02/20 13:00 Hgb 9.4 GM/dL (10.7-15.3) L 01/02/20 13:00 Hct 27.5 % (32.4-45.2) L 01/02/20 13:00 MCV 90.5 fl (80-96) 01/02/20 13:00 MCH 31.1 pg (25.7-33.7) 01/02/20 13:00 MCHC 34.3 g/dl (32.0-36.0) 01/02/20 13:00 RDW 17.4 % (11.6-15.6) H 01/02/20 13:00 Plt Count 38 K/MM3 (134-434) L 01/02/20 13:00 MPV 7.3 fl (7.5-11.1) L 01/02/20 13:00 Absolute Neuts (auto) 1.2 K/mm3 (1.5-8.0) L 01/02/20 13:00 Neutrophils % 73.3 % (42.8-82.8) 01/02/20 13:00 Lymphocytes % 13.0 % (8-40) 01/02/20 13:00 Monocytes % 9.6 % (3.8-10.2) 01/02/20 13:00 Eosinophils % 3.7 % (0-4.5) 01/02/20 13:00 Basophils % 0.4 % (0-2.0) 01/02/20 13:00 Nucleated RBC % 0 % (0-0) 01/02/20 13:00 PT with INR 16.00 SEC (9.7-13.0) H 01/02/20 13:00 INR 1.35 (0.83-1.09) H 01/02/20 13:00 PTT (Actin FS) 40.1 SECONDS (25.2-36.5) H 01/02/20 13:00 VBG pH 7.346 (7.310-7.410) 01/02/20 13:00 POC VBG pCO2 50.3 mmHg (38-52) 01/02/20 13:00 POC VBG pO2 33.8 mmHg (28-48) 01/02/20 13:00 VBG HCO3 26.9 mmol/L (23-29) 01/02/20 13:00 VBG O2 Sat (Tomas) 61.0 % (70-80) L 01/02/20 13:00 VBG Base Excess 0.4 mmol/L (-2-2) 01/02/20 13:00 Sodium 142 mmol/L (136-145) 01/02/20 13:00 Potassium 3.5 mmol/L (3.5-5.1) 01/02/20 13:00 Chloride 110 mmol/L (98-107) H 01/02/20 13:00 Carbon Dioxide 26 mmol/L (21-32) 01/02/20 13:00 Anion Gap 5 MMOL/L (8-16) L 01/02/20 13:00 BUN 11.6 mg/dL (7-18) 01/02/20 13:00 Creatinine 0.8 mg/dL (0.55-1.3) 01/02/20 13:00 Est GFR (CKD-EPI)AfAm 83.00 01/02/20 13:00 Est GFR (CKD-EPI)NonAf 71.61 01/02/20 13:00 Random Glucose 106 mg/dL (74-106) 01/02/20 13:00 Calcium 8.1 mg/dL (8.5-10.1) L 01/02/20 13:00 Total Bilirubin 1.1 mg/dL (0.2-1) H 01/02/20 13:00 AST 37 U/L (15-37) 01/02/20 13:00 ALT 22 U/L (13-61) 01/02/20 13:00 Alkaline Phosphatase 123 U/L (45-117) H 01/02/20 13:00 Troponin I < 0.02 ng/ml (0.00-0.05) 01/02/20 13:00 Total Protein 7.4 g/dl (6.4-8.2) 01/02/20 13:00 Albumin 2.8 g/dl (3.4-5.0) L 01/02/20 13:00 Lipase 156 U/L (73-393) 01/02/20 13:00 Urine Color Yellow 01/02/20 13:00 Urine Appearance Clear 01/02/20 13:00 Urine pH 6.5 (5.0-8.0) 01/02/20 13:00 Ur Specific [place] 1.010 (1.010-1.035) 01/02/20 13:00 Urine Protein 3+ (NEGATIVE) H 01/02/20 13:00 Urine Glucose (UA) Negative (NEGATIVE) 01/02/20 13:00 Urine Ketones Negative (NEGATIVE) 01/02/20 13:00 Urine Blood 2+ (NEGATIVE) H 01/02/20 13:00 Urine Nitrite Negative (NEGATIVE) 01/02/20 13:00 Urine Bilirubin Negative (NEGATIVE) 01/02/20 13:00 Urine Urobilinogen 0.2 mg/dL (0.2-1.0) 01/02/20 13:00 Ur Leukocyte Esterase Negative (NEGATIVE) 01/02/20 13:00 Urine WBC (Auto) 25 /uL (0-25.8) 01/02/20 13:00 Urine RBC (Auto) 78 /uL (0-23.9) 01/02/20 13:00 Urine Casts (Auto) 2 /uL (0-3.1) 01/02/20 13:00 U Epithel Cells (Auto) 24 /uL (0-25.1) 01/02/20 13:00 Urine Bacteria (Auto) 54 /uL (0-1359) 01/02/20 13:00 RAD/CHEST X-RAY PORTABLE* Chest: Shortness of breath A single view of the chest has been submitted. There is a large heart, unfolded aorta, fullness of the jaime and some congestive changes. A discrete infiltrate is not seen. There is no sign of pneumothorax and pleural fluid is not seen. There is some linear atelectasis. Impression: Large heart. Some congestive changes. Linear atelectatic findings. CT/ABDOMEN PELVIS CT WITH CONTR ABDOMEN AND PELVIS CT with contrast Clinical information: left upper quadrant pain Multiplanar imaging was performed following the intravenous administration of nonionic contrast. Enteric contrast was not administered. The partially imaged lower chest again demonstrates evidence of multichamber cardiomegaly and a pericardial effusion which is probably at least moderate in size. No evidence of pneumoperitoneum or bowel obstruction. As on a previous CT exam of 09/21/2019 there is evidence of hepatic cirrhosis with associated splenomegaly (20 cm length) and a small amount of abdominal and pelvic ascites. There is dilatation of the main portal vein secondary to portal hypertension. Esophageal, gastrohepatic ligament, perisp lenic, mesenteric, and perirectal varices are noted. No discrete hepatic mass lesion is identified o n the basis of standard single phase CT. There is again visualization of an approximately 3 x 2.3 cm splenic artery aneurysm adjacent to the splenic hilum. No CT evidence of aneurysm rupture. A small to moderate amount of eccentric thrombus is seen along the ventral medial wall of the origin of the superior mesenteric vein which, retrospectively, is unchanged in comparison to the previous exam. This finding was not as well visualized on the previous study due to the degree of intravascular contrast enhancement and mild motion artifact. There is resultant mild to moderate luminal narrowing which is also unchanged. A somewhat more remote CT study of 06/27/2019 was obtained without intravenous contrast and therefore comparison cannot be performed in this regard. The remainder of the portomesenteric venous system demonstrates no evidence of thrombus. Cholelithiasis is again noted without CT evidence of acute cholecystitis. There is no biliary tract dilatation. Colonic diverticulosis is seen without evidence of acute diverticulitis. The appendix is not definitely visualized. No obvious indirect CT signs of acute appendicitis are noted. There is no gross small bowel pathology allowing for lack of intraluminal contrast. The stomach is difficult to evaluate due to lack of intraluminal contrast. Note is again made of mild dilatation of the right renal collecting system without associated ureteral dilatation possibly representing a mild ureteropelvic junction obstruction. Several stable bilateral mildly prominent bilateral inguinal lymph nodes are again seen. The pancreas, adrenal glands and left kidney demonstrate no discrete pathology. There is no aortic aneurysm. No retroperitoneal or intra-abdominal lymphadenopathy is noted on the basis of CT size criteria. The urinary bladder and pelvic soft tissue structures demonstrate no obvious CT abnormality. There is no obvious acute osseous pathology is seen. IMPRESSION: The abdomen and pelvis demonstrate no definite interval change in comparison to CT performed on 09/21/2019. Hepatic cirrhosis is noted with associated marked splenomegaly, varices, and a small amount of ascites. There is again visualization of a patent 3 x 2.7 cm distal splenic artery aneurysm without CT evidence of rupture. Vascular surgery consultation is suggested, nonemergent versus emergent as clinically indicated. 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 No interval change is identified. Periodic imaging surveillance is suggested. Cholelithiasis. Colonic diverticulosis. Mild stable dilatation of the right renal collecting system which may be due to a mild UPJ obstruction. Periodic ultrasound surveillance is suggested. Stable mildly prominent bilateral inguinal lymph nodes. The partially imaged lower chest again demonstrates multichamber cardiomegaly as well as a pericardial effusion which is probably at least moderate in volume. Correlate with echocardiography. Patient requiring admission. Has received antibiotics given possibility of SBP or other infectious etiology although there are only small ascites on POCUS. Heart Score/ECG Review #1 Sinus rhythm, rate 68, normal axis and intervals, no ischemic ST-T changes Discharge - Discharge Information Problems reviewed: Yes Clinical Impression/Diagnosis: Cirrhosis Qualifiers: Hepatic cirrhosis type: unspecified hepatic cirrhosis Ascites presence: with ascites Qualified Code(s): K74.60 - Unspecified cirrhosis of liver; R18.8 - Other ascites Abdominal pain Qualifiers: Abdominal location: generalized Qualified Code(s): R10.84 - Generalized abdominal pain Condition: Guarded - Admission Yes - Follow up/Referral - Patient Discharge Instructions - Post Discharge Activity
[2020-01-02 13:34] LABS: INR 1.35 (0.83-1.09)
[2020-01-02 13:36] LABS: ACTIVATED PTT 40.1 SECONDS (25.2-36.5)
[2020-01-02 13:56] LABS: ALBUMIN 2.8 g/dl (3.4-5.0); ALK PHOS 123 U/L (45-117); ANION GAP 5 MMOL/L (8-16); BILIRUBIN,TOTAL 1.1 mg/dL (0.2-1); BLOOD UREA NITROGEN 11.6 mg/dL (7-18); CALCIUM 8.1 mg/dL (8.5-10.1); CHLORIDE 110 mmol/L (98-107); CO2 26 mmol/L (21-32); CREATININE 0.8 mg/dL (0.55-1.3); GLUCOSE,RANDOM 106 mg/dL (74-106); POTASSIUM 3.5 mmol/L (3.5-5.1); SGOT/AST 37 U/L (15-37); SGPT/ALT 22 U/L (13-61); SODIUM 142 mmol/L (136-145); TOT PROT 7.4 g/dl (6.4-8.2)
[2020-01-02 14:45] LABS: ANISOCYTOSIS 1+; MACROCYTOSIS 1+; PLATELET ESTIMATE DECREASED
[2020-01-02] MEDS ORDERED: CEFEPIME HCL/D5W 2 GM/50 ML BAG IVPB ONE (17:31)
[2020-01-02] MEDS ORDERED: CEFEPIME 2 GM/100 ML BAG IVPB ONE (17:52)
--- NOTE | 2020-01-02 18:38 | HP ---
CHIEF COMPLAINT: abdominal pain, shortness of breath PCP: HISTORY OF PRESENT ILLNESS: Patient is a 74 year old female with history of pancytopenia, hypertension, cirrhosis secondary to Hepatitis C (treated), COVID-19 (06/2019), pericardial effusion (ECHO 08/2019), priro esophageal varices (s/p banding ligation) presents with complaint of abdominal pain. Endorses pain is similar in character to previous hospitalization, and endorses diminished oral intake due to the pain and bloating. She denies nausea, or vomiting. Passing flatus and bowel movements, last today, solid without melena or hematochezia. She denies subjective fevers, chills. ER course was notable for: (1) CT abdomen, pelvis (2) (3) Recent Travel: denies Immigrated from [facility] [place] approx 4 years ago PAST MEDICAL HISTORY: pancytopenia, hypertension, cirrhosis secondary to Hepat itis C (treated), COVID-19 (06/2019), pericardial effusion (ECHO 08/2019), prior esophageal varices PAST SURGICAL HISTORY: upper endoscopy, colonoscopy FAMILY HISTORY: Endorses history of hypertension in both mother and father. Denies known oncologic family history. Social History: Lives with her son Smoking: Denies smoking cigarettes Alcohol: Denies alcohol consumption Drugs: Denies illicit drug use Allergies No Known Allergies Allergy (Verified 01/02/20 12:03) HOME MEDICATIONS: Home Medications Medication Instructions Recorded Amlodipine Besylate [Norvasc -] 10 mg PO DAILY #30 tablet 07/16/19 Nadolol [Corgard -] 20 mg PO DAILY #30 tablet 09/25/19 Docusate Sodium [Colace -] 100 mg PO DAILY 01/02/20 Ferrous Sulfate 325 mg PO DAILY 01/02/20 Gabapentin 300 mg PO TID 01/02/20 Vitamin B Complex 1 each PO DAILY 01/02/20 REVIEW OF SYSTEMS CONSTITUTIONAL: Absent: fever, chills, diaphoresis, generalized weakness, malaise, loss of appetite, weight change HEENT: Absent: rhinorrhea, nasal congestion, throat pain, throat swelling, difficulty swallowing, mouth swelling, ear pain, eye pain, visual changes CARDIOVASCULAR: Absent: chest pain, syncope, palpitations, irregular heart rate, lightheadedness, peripheral edema RESPIRATORY: Admits: shortness of breath. Absent: cough, orthopnea, wheezing, stridor, hemoptysis GASTROINTESTINAL: Admits: abdominal pain Absent: abdominal distension, nausea, vomiting, diarrhea, constipation, melena, hematochezia GENITOURINARY: Absent: dysuria, frequency, urgency, hesitancy, hematuria, flank pain, genital pain MUSCULOSKELETAL: Absent: myalgia, arthralgia, joint swelling, back pain, neck pain SKIN: Absent: rash, itching, pallor HEMATOLOGIC/IMMUNOLOGIC: Absent: easy bleeding, easy bruising, lymphadenopathy, frequent infections ENDOCRINE: Absent: unexplained weight gain, unexplained weight loss, heat intolerance, cold intolerance NEUROLOGIC: Absent: headache, focal weakness or paresthesias, dizziness, unsteady gait, seizure, mental status changes, bladder or bowel incontinence PSYCHIATRIC: Absent: anxiety, depression, suicidal or homicidal ideation, hallucinations. PHYSICAL EXAMINATION Vital Signs - 24 hr 01/02/20 01/02/20 12:03 16:53 Temperature 97.6 F 97.5 F L Pulse Rate 74 Pulse Rate [ 70 Apical] Respiratory 20 18 Rate Blood Pressure 159/73 Blood Pressure 168/79 [Right Arm] O2 Sat by Pulse 97 97 Oximetry (%) GENERAL: Awake, alert, and fully oriented, in no acute distress. HEAD: Normal with no signs of trauma. EYES: Pupils equal, round and reactive to light, extraocular movements intact, sclera anicteric, conjunctiva clear. No lid lag. EARS, NOSE, THROAT: Ears normal, nares patent, oropharynx clear without exudates. Moist mucous membranes. NECK: Normal range of motion, supple without lymphadenopathy, JVD, or masses. LUNGS: Breath sounds equal, clear to auscultation bilaterally. No wheezes, and no crackles. No accessory muscle use. HEART: Regular rate and rhythm, normal S1 and S2 without murmur, rub or gallop. ABDOMEN: Soft, diffusely tender to palpation, worst at left upper abdominal quadrant. No guarding, no rebound, no masses. Splenomegaly appreciated. MUSCULOSKELETAL: Normal range of motion at all joints. No bony deformities or tenderness. No CVA tenderness. UPPER EXTREMITIES: 2+ pulses, warm, well-perfused. No cyanosis. No clubbing. No peripheral edema. LOWER EXTREMITIES: 2+ pulses, warm, well-perfused. No calf tenderness. No peripheral edema. NEUROLOGICAL: Cranial nerves II-XII intact. Normal speech. Normal gait. PSYCHIATRIC: Cooperative. Good eye contact. Appropriate mood and affect. SKIN: Warm, dry. Left foot wound bandaged clean,dry. Bilateral lower extremity vitiligo, with skin thickening. Laboratory Results - last 24 hr 01/02/20 01/02/20 01/02/20 13:00 13:00 13:00 WBC 1.7 L* RBC 3.04 L Hgb 9.4 L Hct 27.5 L MCV 90.5 MCH 31.1 MCHC 34.3 RDW 17.4 H Plt Count 38 L MPV 7.3 L Absolute Neuts (auto) 1.2 L Neutrophils % 73.3 Neutrophils % (Manual) 75.0 Band Neutrophils % 6.0 Lymphocytes % 13.0 Lymphocytes % (Manual) 12.0 D Monocytes % 9.6 Monocytes % (Manual) 2 L Eosinophils % 3.7 Eosinophils % (Manual) 4.0 D Basophils % 0.4 Basophils % (Manual) 0.0 Myelocytes % (Man) 1 D Promyelocytes % (Man) 0 Blast Cells % (Manual) 0 Nucleated RBC % 0 Metamyelocytes 0 D Hypochromia 0 Platelet Estimate Decreased Polychromasia 0 Poikilocytosis 1+ Anisocytosis 1+ Microcytosis 1+ Macrocytosis 1+ PT with INR 16.00 H INR 1.35 H PTT (Actin FS) 40.1 H VBG pH POC VBG pCO2 POC VBG pO2 VBG HCO3 VBG O2 Sat (Tomas) VBG Base Excess Sodium Potassium Chloride Carbon Dioxide Anion Gap BUN Creatinine Est GFR (CKD-EPI)AfAm Est GFR (CKD-EPI)NonAf Random Glucose Lactic Acid Calcium Total Bilirubin AST ALT Alkaline Phosphatase Troponin I Total Protein Albumin Lipase Urine Color Yellow Urine Appearance Clear Urine pH 6.5 Ur Specific [place] 1.010 Urine Protein 3+ H Urine Glucose (UA) Negative Urine Ketones Negative Urine Blood 2+ H Urine Nitrite Negative Urine Bilirubin Negative Urine Urobilinogen 0.2 Ur Leukocyte Esterase Negative Urine WBC (Auto) 25 Urine RBC (Auto) 78 Urine Casts (Auto) 2 U Epithel Cells (Auto) 24 Urine Bacteria (Auto) 54 Blood Type Antibody Screen 01/02/20 01/02/20 01/02/20 13:00 13:00 13:00 WBC RBC Hgb Hct MCV MCH MCHC RDW Plt Count MPV Absolute Neuts (auto) Neutrophils % Neutrophils % (Manual) Band Neutrophils % Lymphocytes % Lymphocytes % (Manual) Monocytes % Monocytes % (Manual) Eosinophils % Eosinophils % (Manual) Basophils % Basophils % (Manual) Myelocytes % (Man) Promyelocytes % (Man) Blast Cells % (Manual) Nucleated RBC % Metamyelocytes Hypochromia Platelet Estimate Polychromasia Poikilocytosis Anisocytosis Microcytosis Macrocytosis PT with INR INR PTT (Actin FS) VBG pH 7.346 POC VBG pCO2 50.3 POC VBG pO2 33.8 VBG HCO3 26.9 VBG O2 Sat (Tomas) 61.0 L VBG Base Excess 0.4 Sodium 142 Potassium 3.5 Chloride 110 H Carbon Dioxide 26 Anion Gap 5 L BUN 11.6 Creatinine 0.8 Est GFR (CKD-EPI)AfAm 83.00 Est GFR (CKD-EPI)NonAf 71.61 Random Glucose 106 Lactic Acid Calcium 8.1 L Total Bilirubin 1.1 H AST 37 ALT 22 Alkaline Phosphatase 123 H Troponin I < 0.02 Total Protein 7.4 Albumin 2.8 L Lipase Urine Color Urine Appearance Urine pH Ur Specific [place] Urine Protein Urine Glucose (UA) Urine Ketones Urine Blood Urine Nitrite Urine Bilirubin Urine Urobilinogen Ur Leukocyte Esterase Urine WBC (Auto) Urine RBC (Auto) Urine Casts (Auto) U Epithel Cells (Auto) Urine Bacteria (Auto) Blood Type A POSITIVE Antibody Screen Positive 01/02/20 01/02/20 01/02/20 13:00 14:02 15:08 WBC RBC Hgb Hct MCV MCH MCHC RDW Plt Count MPV Absolute Neuts (auto) Neutrophils % Neutrophils % (Manual) Band Neutrophils % Lymphocytes % Lymphocytes % (Manual) Monocytes % Monocytes % (Manual) Eosinophils % Eosinophils % (Manual) Basophils % Basophils % (Manual) Myelocytes % (Man) Promyelocytes % (Man) Blast Cells % (Manual) Nucleated RBC % Metamyelocytes Hypochromia Platelet Estimate Polychromasia Poikilocytosis Anisocytosis Microcytosis Macrocytosis PT with INR INR PTT (Actin FS) VBG pH POC VBG pCO2 POC VBG pO2 VBG HCO3 VBG O2 Sat (Tomas) VBG Base Excess Sodium Potassium Chloride Carbon Dioxide Anion Gap BUN Creatinine Est GFR (CKD-EPI)AfAm Est GFR (CKD-EPI)NonAf Random Glucose Lactic Acid 0.7 Calcium Total Bilirubin AST ALT Alkaline Phosphatase Troponin I Total Protein Albumin Lipase 156 Urine Color Urine Appearance Urine pH Ur Specific [place] Urine Protein Urine Glucose (UA) Urine Ketones Urine Blood Urine Nitrite Urine Bilirubin Urine Urobilinogen Ur Leukocyte Esterase Urine WBC (Auto) Urine RBC (Auto) Urine Casts (Auto) U Epithel Cells (Auto) Urine Bacteria (Auto) Blood Type A POSITIVE Antibody Screen ASSESSMENT/PLAN: Patient is a 74 year old female with history of pancytopenia, hypertension, cirrhosis secondary to Hepatitis C (treated), COVID-19 (06/2019), pericardial effusion (ECHO 08/2019), prior esophageal varices (s/p banding ligation) presents with complaint of abdominal pain. Abdominal pain, splenomegaly -Noted history of prior splenic artery aneurysm (3 x 2.7cm on this admission CT, 3 x 2.3cm on prior CT in 08/2019) -Suspect splenomegaly is main source of her pain, given extensive pain, worst at left upper quadrant. -Will trial clear liquid diet, advance as tolerated -Protonix 40mg PO daily -Patient received Cefepime in ED, however doubt infectious etiology as patient is afebrile. Monitor off antibiotics. Follow blood, urine cultures. -Vascular surgery consult- patient may require splenectomy. Pancytopenia -In setting of cirrhosis, and splenomegaly. -Current ANC greater than 500, no indication for prophylaxis -Hematology consult (Dr. Manjarrez) -Follow CBC -Continue home Ferrous Sulfate -Avoiding chemical anticoagulation in setting of thrombocytopenia Shortness of breath -She describes shortness of breath, limited by her abdominal pain. Initial troponin negative, will obtain repeat -History of mild pericardial effusion noted on prior transthoracic ECHO in 08/2019. Suspect patient is splinting, limiting ability to take deep breaths. She is saturating well on room air. Hepatic cirrhosis -History of Hepatitis C, s/p treatment -Noted history of esophageal varices, s/p banding. Minimal ascites again noted on CT scan. -Continue home Nadolol History of hypertension -Continue home Amlodipine FEN -No IV fluids indicated -Folow BMP -Clear liquid diet, given abdominal pain. Advance as tolerated Prophylaxis -SCDs bilateral lower extremities. Holding chemical anticoagulation given bleeding risk (thrombocytopenia) Disposition Admit to medical surgical floor. Family Medical History Family History: As Documented Visit type - Medication Review Med list reviewed for High Risk Meds patients 65 and older: Yes - Emergency Visit Emergency Visit: Yes ED Registration Date: 01/02/20 Care time: The patient presented to the Emergency Department on the above date and was hospitalized for further evaluation of their emergent condition. - New Patient This patient is new to me today: Yes Date on this admission: 01/02/20 - Critical Care Critical Care patient: No ATTENDING PHYSICIAN STATEMENT I saw and evaluated the patient. I reviewed the resident's note and discussed the case with the resident. I agree with the resident's findings and plan as documented. SUBJECTIVE: OBJECTIVE: ASSESSMENT AND PLAN:
--- NOTE | 2020-01-02 23:13 | PN ---
Teaching Attending Note Name of Resident: Vance Banuelos ATTENDING PHYSICIAN STATEMENT I saw and evaluated the patient. I reviewed the resident's note and discussed the case with the resident. I agree with the resident's findings and plan as documented. SUBJECTIVE: Patient seen and examined at bedside, presents w/ LUQ pain 2/2 ?splenic infarction, awaiting US. VSS. OBJECTIVE: GA comfortable, mild distress, [place]er speaking HEENT NC/AT, mild JVD present, neck supple CHest CTAB, no crackles or wheezing CVs S1, S2+, CAROL+ Abd Mildly distended, LUQ pain, no RUQ pain, BS+ Ext no edema Vital Signs (72 hours) 01/02/20 01/02/20 12:03 16:53 Temperature 97.6 F 97.5 F L Pulse Rate 74 Pulse Rate [ 70 Apical] Respiratory 20 18 Rate Blood Pressure 159/73 Blood Pressure 168/79 [Right Arm] O2 Sat by Pulse 97 97 Oximetry (%) Laboratory Results - last 24 hr 01/02/20 01/02/20 01/02/20 13:00 13:00 13:00 WBC 1.7 L* RBC 3.04 L Hgb 9.4 L Hct 27.5 L MCV 90.5 MCH 31.1 MCHC 34.3 RDW 17.4 H Plt Count 38 L MPV 7.3 L Absolute Neuts (auto) 1.2 L Neutrophils % 73.3 Neutrophils % (Manual) 75.0 Band Neutrophils % 6.0 Lymphocytes % 13.0 Lymphocytes % (Manual) 12.0 D Monocytes % 9.6 Monocytes % (Manual) 2 L Eosinophils % 3.7 Eosinophils % (Manual) 4.0 D Basophils % 0.4 Basophils % (Manual) 0.0 Myelocytes % (Man) 1 D Promyelocytes % (Man) 0 Blast Cells % (Manual) 0 Nucleated RBC % 0 Metamyelocytes 0 D Hypochromia 0 Platelet Estimate Decreased Polychromasia 0 Poikilocytosis 1+ Anisocytosis 1+ Microcytosis 1+ Macrocytosis 1+ PT with INR 16.00 H INR 1.35 H PTT (Actin FS) 40.1 H VBG pH POC VBG pCO2 POC VBG pO2 VBG HCO3 VBG O2 Sat (Tomas) VBG Base Excess Sodium Potassium Chloride Carbon Dioxide Anion Gap BUN Creatinine Est GFR (CKD-EPI)AfAm Est GFR (CKD-EPI)NonAf Random Glucose Lactic Acid Calcium Total Bilirubin AST ALT Alkaline Phosphatase Troponin I Total Protein Albumin Lipase Urine Color Yellow Urine Appearance Clear Urine pH 6.5 Ur Specific [place] 1.010 Urine Protein 3+ H Urine Glucose (UA) Negative Urine Ketones Negative Urine Blood 2+ H Urine Nitrite Negative Urine Bilirubin Negative Urine Urobilinogen 0.2 Ur Leukocyte Esterase Negative Urine WBC (Auto) 25 Urine RBC (Auto) 78 Urine Casts (Auto) 2 U Epithel Cells (Auto) 24 Urine Bacteria (Auto) 54 Blood Type Antibody Screen 01/02/20 01/02/20 01/02/20 13:00 13:00 13:00 WBC RBC Hgb Hct MCV MCH MCHC RDW Plt Count MPV Absolute Neuts (auto) Neutrophils % Neutrophils % (Manual) Band Neutrophils % Lymphocytes % Lymphocytes % (Manual) Monocytes % Monocytes % (Manual) Eosinophils % Eosinophils % (Manual) Basophils % Basophils % (Manual) Myelocytes % (Man) Promyelocytes % (Man) Blast Cells % (Manual) Nucleated RBC % Metamyelocytes Hypochromia Platelet Estimate Polychromasia Poikilocytosis Anisocytosis Microcytosis Macrocytosis PT with INR INR PTT (Actin FS) VBG pH 7.346 POC VBG pCO2 50.3 POC VBG pO2 33.8 VBG HCO3 26.9 VBG O2 Sat (Tomas) 61.0 L VBG Base Excess 0.4 Sodium 142 Potassium 3.5 Chloride 110 H Carbon Dioxide 26 Anion Gap 5 L BUN 11.6 Creatinine 0.8 Est GFR (CKD-EPI)AfAm 83.00 Est GFR (CKD-EPI)NonAf 71.61 Random Glucose 106 Lactic Acid Calcium 8.1 L Total Bilirubin 1.1 H AST 37 ALT 22 Alkaline Phosphatase 123 H Troponin I < 0.02 Total Protein 7.4 Albumin 2.8 L Lipase Urine Color Urine Appearance Urine pH Ur Specific [place] Urine Protein Urine Glucose (UA) Urine Ketones Urine Blood Urine Nitrite Urine Bilirubin Urine Urobilinogen Ur Leukocyte Esterase Urine WBC (Auto) Urine RBC (Auto) Urine Casts (Auto) U Epithel Cells (Auto) Urine Bacteria (Auto) Blood Type A POSITIVE Antibody Screen Positive 01/02/20 01/02/20 01/02/20 13:00 14:02 15:08 WBC RBC Hgb Hct MCV MCH MCHC RDW Plt Count MPV Absolute Neuts (auto) Neutrophils % Neutrophils % (Manual) Band Neutrophils % Lymphocytes % Lymphocytes % (Manual) Monocytes % Monocytes % (Manual) Eosinophils % Eosinophils % (Manual) Basophils % Basophils % (Manual) Myelocytes % (Man) Promyelocytes % (Man) Blast Cells % (Manual) Nucleated RBC % Metamyelocytes Hypochromia Platelet Estimate Polychromasia Poikilocytosis Anisocytosis Microcytosis Macrocytosis PT with INR INR PTT (Actin FS) VBG pH POC VBG pCO2 POC VBG pO2 VBG HCO3 VBG O2 Sat (Tomas) VBG Base Excess Sodium Potassium Chloride Carbon Dioxide Anion Gap BUN Creatinine Est GFR (CKD-EPI)AfAm Est GFR (CKD-EPI)NonAf Random Glucose Lactic Acid 0.7 Calcium Total Bilirubin AST ALT Alkaline Phosphatase Troponin I Total Protein Albumin Lipase 156 Urine Color Urine Appearance Urine pH Ur Specific [place] Urine Protein Urine Glucose (UA) Urine Ketones Urine Blood Urine Nitrite Urine Bilirubin Urine Urobilinogen Ur Leukocyte Esterase Urine WBC (Auto) Urine RBC (Auto) Urine Casts (Auto) U Epithel Cells (Auto) Urine Bacteria (Auto) Blood Type A POSITIVE Antibody Screen Home Medications Medication Instructions Recorded Amlodipine Besylate [Norvasc -] 10 mg PO DAILY #30 tablet 07/16/19 Nadolol [Corgard -] 20 mg PO DAILY #30 tablet 09/25/19 Docusate Sodium [Colace -] 100 mg PO DAILY 01/02/20 Ferrous Sulfate 325 mg PO DAILY 01/02/20 Gabapentin 300 mg PO TID 01/02/20 Vitamin B Complex 1 each PO DAILY 01/02/20 Current Medications Generic Name Dose Route Start Last Admin Trade Name Freq PRN Reason Stop Dose Admin Amlodipine Besylate 10 mg 01/03/20 10:00 Norvasc - PO DAILY REJI Ferrous Sulfate 325 mg 01/03/20 10:00 Feosol - PO DAILY REJI Nadolol 20 mg 01/03/20 10:00 Corgard - PO DAILY REJI Pantoprazole Sodium 40 mg 01/03/20 10:00 Protonix - PO DAILY REJI ASSESSMENT AND PLAN: 74 F h/o Splenic Artery Aneurysm s/p coiling, r/o ?re-expansion h/o Pericardial Effusion Severe TR/NY h/o COVID19 Pancytopenia Hep C Cirrhosis HTN HLD Plan: Obtain Abd US of spleen to r/o infarcts/vascular pathology Restart BP meds Obtain repeat trops/EKG, low suspicion for ACS Vascular consult Heme Onc evaluation for pancytopenia DVT ppx: SCD
[2020-01-03 07:43] LABS: HEMATOCRIT 26.1 % (32.4-45.2); MCH 30.6 pg (25.7-33.7); MCHC 34.4 g/dl (32.0-36.0); MEAN CELL VOLUME 89.2 fl (80-96); MEAN PLT VOLUME 7.4 fl (7.5-11.1); RBC 2.93 M/mm3 (3.60-5.2); RDW 17.2 % (11.6-15.6)
[2020-01-03 07:48] LABS: ALBUMIN 2.5 g/dl (3.4-5.0); BLOOD UREA NITROGEN 11.4 mg/dL (7-18); CALCIUM 7.5 mg/dL (8.5-10.1); CREATININE 0.8 mg/dL (0.55-1.3); MAGNESIUM 1.8 mg/dL (1.8-2.4); POTASSIUM 3.2 mmol/L (3.5-5.1)
[2020-01-03 07:50] LABS: BILIRUBIN,TOTAL 1.5 mg/dL (0.2-1); TOT PROT 6.9 g/dl (6.4-8.2)
[2020-01-03] MEDS ORDERED: FERROUS SO4 325 MG TABLET (FP) ONE (08:11)
[2020-01-03] MEDS ORDERED: amLODIPine BESYLATE 5 MG TABLET (FP) ONE (08:11)
[2020-01-03] MEDS ORDERED: PANTOPRAZOLE 40 MG TABLET ONE (08:11)
[2020-01-03 08:31] LABS: PLATELET COUNT 33 K/MM3 (134-434); WHITE BLOOD COUNT 1.5 K/mm3 (4.0-10.0)
[2020-01-03] MEDS ORDERED: POTASSIUM CHLORIDE ORAL LIQUID 20 MEQ/15 ML PO ONE (09:00)
[2020-01-03] MEDS ORDERED: BACITRACIN 0.9 GM PACKET ONE (09:15)
[2020-01-03] MEDS ORDERED: POTASSIUM CHLORIDE TABS 20 MEQ TABLET.ER (FP) PO ONE (09:15)
[2020-01-03] MEDS ORDERED: PANTOPRAZOLE 40 MG TABLET PO SCH (10:00)
[2020-01-03] MEDS ORDERED: DOCUSATE SODIUM 100 MG CAPSULE (FP) PO SCH (10:00)
[2020-01-03] MEDS ORDERED: amLODIPine BESYLATE 10 MG TABLET (FP) PO SCH (10:00)
[2020-01-03] MEDS ORDERED: ENOXAPARIN NA (PORCINE) 40 MG/0.4 ML DISP.SYRIN SQ SCH (10:00)
[2020-01-03] MEDS ORDERED: PANTOPRAZOLE SOD 40 MG SUSPENSION PACKET PO SCH (10:00)
[2020-01-03] MEDS ORDERED: NADOLOL 20 MG TABLET (FP) PO SCH ×2 (10:00→16:45)
[2020-01-03] MEDS ORDERED: BACITRACIN 15 GM TUBE TOPICAL OINTMENT TP SCH (10:00)
[2020-01-03] MEDS ORDERED: FERROUS SO4 325 MG TABLET (FP) PO SCH (10:00)
--- NOTE | 2020-01-03 10:05 | CONSULT ---
Consultation: REQUESTING PROVIDER: Dr. Meade CONSULT REQUEST: We have been asked to medically evaluate this patient for pancytopenia, Splenomegaly. HISTORY OF PRESENT ILLNESS: 74 y/o F (Born in , Immigrated approx. 4 years ago) PMHx Pancytopenia, HTN, Cirrhosis (due to Hep C, now treated), Esophageal Varicies (s/p band ligation), Covid-19 presents with Abdominal pain. Patient endorses having had abdominal pain for years however feels it has worsened, most prominent in the LUQ, nonradiating, dull in nature. Patient was recently admitted in 08/2019 for similar abdominal pain. Endorses Decreased PO Intake, Bloating, Similar pain to prior admissions. Passing flatus, Having BM's (Last one yesterday AM) without associated melena, hematochezia. Initial Labwork revealed pancytopenia (at baseline). Initial CT A/P revealed no definite change from prior, marked splenomegaly, Stable b/l Inguinal LN. Patient was admitted to med-surg for abdominal pain, Hematology was consulted for Splenomegaly + Pancytopenia. Patient has been seen by GI During the previous admission for post prandial pain that reflects bloating from constipation. patient has been evaluated by vascular surgery during the previous admission for splenic aneurysm; No intervention at that juncture and recommended monitoring for growth. Denies fevers, chills, chest pain, SOB, nausea, vomiting, diarrhea, constipation. Denies any recent travel, sick contacts, trauma. Denies any FHx of Anemia, Pancytopenia. PMHx: As per HPI PSHx: EGD, C-Scope Social Hx: Denies Tobacco, EtOH or drug use FHx: Mother and Father with HTN. REVIEW OF SYSTEMS: As per HPI PHYSICAL EXAMINATION Vital Signs Temperature 98.2 F 01/03/20 06:54 Pulse Rate 73 01/03/20 06:54 Respiratory Rate 16 01/03/20 06:54 Blood Pressure 152/82 01/03/20 06:54 O2 Sat by Pulse Oximetry (%) 97 01/03/20 06:54 GENERAL: A&Ox3, NAD HEAD: NCAT EYES: PERRL, EOMI EARS, NOSE, THROAT: Moist mucous membranes. NECK: Supple LUNGS: Diminished breath sounds at the bases, No wheezes HEART: Regular rate and rhythm, normal S1 and S2 without murmur ABDOMEN: Soft, diffusely tender to palpation worse in the B/L UQ's, + distended, + bowel sounds, no guarding, + Splenomegaly MUSCULOSKELETAL: No CVA tenderness. EXTREMITIES: No peripheral edema. NEUROLOGICAL: Cranial nerves II-XII intact. Normal speech SKIN: Warm, dry. Left foot wound bandage CDI. Laboratory Last Values WBC 1.5 K/mm3 (4.0-10.0) L* 01/03/20 06:32 RBC 2.93 M/mm3 (3.60-5.2) L 01/03/20 06:32 Hgb 9.0 GM/dL (10.7-15.3) L 01/03/20 06:32 Hct 26.1 % (32.4-45.2) L 01/03/20 06:32 MCV 89.2 fl (80-96) 01/03/20 06:32 MCH 30.6 pg (25.7-33.7) 01/03/20 06:32 MCHC 34.4 g/dl (32.0-36.0) 01/03/20 06:32 RDW 17.2 % (11.6-15.6) H 01/03/20 06:32 Plt Count 33 K/MM3 (134-434) L* 01/03/20 06:32 MPV 7.4 fl (7.5-11.1) L 01/03/20 06:32 Absolute Neuts (auto) 1.2 K/mm3 (1.5-8.0) L 01/02/20 13:00 Neutrophils % 73.3 % (42.8-82.8) 01/02/20 13:00 Neutrophils % (Manual) 75.0 % (42.8-82.8) 01/02/20 13:00 Band Neutrophils % 6.0 % 01/02/20 13:00 Lymphocytes % 13.0 % (8-40) 01/02/20 13:00 Lymphocytes % (Manual) 12.0 % (8-40) D 01/02/20 13:00 Monocytes % 9.6 % (3.8-10.2) 01/02/20 13:00 Monocytes % (Manual) 2 % (3.8-10.2) L 01/02/20 13:00 Eosinophils % 3.7 % (0-4.5) 01/02/20 13:00 Eosinophils % (Manual) 4.0 % (0-4.5) D 01/02/20 13:00 Basophils % 0.4 % (0-2.0) 01/02/20 13:00 Basophils % (Manual) 0.0 % (0-2.0) 01/02/20 13:00 Myelocytes % (Man) 1 % (0-2) D 01/02/20 13:00 Promyelocytes % (Man) 0 % (0-2) 01/02/20 13:00 Blast Cells % (Manual) 0 % (0-0) 01/02/20 13:00 Nucleated RBC % 0 % (0-0) 01/02/20 13:00 Metamyelocytes 0 % (0-2) D 01/02/20 13:00 Hypochromia 0 01/02/20 13:00 Platelet Estimate Decreased 01/02/20 13:00 Polychromasia 0 01/02/20 13:00 Poikilocytosis 1+ 01/02/20 13:00 Anisocytosis 1+ 01/02/20 13:00 Microcytosis 1+ 01/02/20 13:00 Macrocytosis 1+ 01/02/20 13:00 PT with INR 16.00 SEC (9.7-13.0) H 01/02/20 13:00 INR 1.35 (0.83-1.09) H 01/02/20 13:00 PTT (Actin FS) 40.1 SECONDS (25.2-36.5) H 01/02/20 13:00 VBG pH 7.346 (7.310-7.410) 01/02/20 13:00 POC VBG pCO2 50.3 mmHg (38-52) 01/02/20 13:00 POC VBG pO2 33.8 mmHg (28-48) 01/02/20 13:00 VBG HCO3 26.9 mmol/L (23-29) 01/02/20 13:00 VBG O2 Sat (Tomas) 61.0 % (70-80) L 01/02/20 13:00 VBG Base Excess 0.4 mmol/L (-2-2) 01/02/20 13:00 Sodium 143 mmol/L (136-145) 01/03/20 06:32 Potassium 3.2 mmol/L (3.5-5.1) L 01/03/20 06:32 Chloride 111 mmol/L (98-107) H 01/03/20 06:32 Carbon Dioxide 25 mmol/L (21-32) 01/03/20 06:32 Anion Gap 7 MMOL/L (8-16) L 01/03/20 06:32 BUN 11.4 mg/dL (7-18) 01/03/20 06:32 Creatinine 0.8 mg/dL (0.55-1.3) 01/03/20 06:32 Est GFR (CKD-EPI)AfAm 83.00 01/03/20 06:32 Est GFR (CKD-EPI)NonAf 71.61 01/03/20 06:32 Random Glucose 91 mg/dL (74-106) 01/03/20 06:32 Lactic Acid 0.7 mmol/L (0.4-2.0) 01/02/20 14:02 Calcium 7.5 mg/dL (8.5-10.1) L 01/03/20 06:32 Phosphorus 4.0 mg/dL (2.5-4.9) 01/03/20 06:32 Magnesium 1.8 mg/dL (1.8-2.4) 01/03/20 06:32 Total Bilirubin 1.5 mg/dL (0.2-1) H 01/03/20 06:32 AST 37 U/L (15-37) 01/03/20 06:32 ALT 22 U/L (13-61) 01/03/20 06:32 Alkaline Phosphatase 115 U/L (45-117) 01/03/20 06:32 Troponin I < 0.02 ng/ml (0.00-0.05) 01/03/20 00:50 Total Protein 6.9 g/dl (6.4-8.2) 01/03/20 06:32 Albumin 2.5 g/dl (3.4-5.0) L 01/03/20 06:32 Lipase 156 U/L (73-393) 01/02/20 13:00 Urine Color Yellow 01/02/20 13:00 Urine Appearance Clear 01/02/20 13:00 Urine pH 6.5 (5.0-8.0) 01/02/20 13:00 Ur Specific [place] 1.010 (1.010-1.035) 01/02/20 13:00 Urine Protein 3+ (NEGATIVE) H 01/02/20 13:00 Urine Glucose (UA) Negative (NEGATIVE) 01/02/20 13:00 Urine Ketones Negative (NEGATIVE) 01/02/20 13:00 Urine Blood 2+ (NEGATIVE) H 01/02/20 13:00 Urine Nitrite Negative (NEGATIVE) 01/02/20 13:00 Urine Bilirubin Negative (NEGATIVE) 01/02/20 13:00 Urine Urobilinogen 0.2 mg/dL (0.2-1.0) 01/02/20 13:00 Ur Leukocyte Esterase Negative (NEGATIVE) 01/02/20 13:00 Urine WBC (Auto) 25 /uL (0-25.8) 01/02/20 13:00 Urine RBC (Auto) 78 /uL (0-23.9) 01/02/20 13:00 Urine Casts (Auto) 2 /uL (0-3.1) 01/02/20 13:00 U Epithel Cells (Auto) 24 /uL (0-25.1) 01/02/20 13:00 Urine Bacteria (Auto) 54 /uL (0-1359) 01/02/20 13:00 Blood Type A POSITIVE 01/02/20 15:08 Antibody Screen Positive 01/02/20 13:00 ASSESSMENT/PLAN: 74 y/o F (Born in , Immigrated approx. 4 years ago) PMHx Pancytopenia, HTN, Cirrhosis (due to Hep C, now treated), Esophageal Varicies (s/p band ligation), Covid-19 presents with Abdominal pain. Initial Labwork revealed pancytopenia (at baseline). Initial imaging revealed no definite change from prior, marked splenomegaly, Stable b/l Inguinal LN. Patient was admitted to med-surg for abdominal pain, Hematology was consulted for Splenomegaly + Pancytopenia. #Splenomegaly -In the setting of prior splenic artery aneurysm, possibly the source of abdominal pain however unchanged from prior infection and has previously been evaluated by Vascular sx #Pancytopenia -In setting of underlying cirrhosis, Splenomegaly, hx of Covid-19 infection; Would need to r/o infectious sources -Trend CBC, Monitor ANC -Continue home dose Ferrous Sulfate -DVT PPx Dispo: We will continue to follow the patient. Thank you for this consultative opportunity. Visit type - Medication Review Med list reviewed for High Risk Meds patients 65 and older: Yes - Emergency Visit Emergency Visit: Yes ED Registration Date: 01/02/20 Care time: The patient presented to the Emergency Department on the above date and was hospitalized for further evaluation of their emergent condition. - New Patient This patient is new to me today: Yes Date on this admission: 01/06/20 - Critical Care Critical Care patient: No ATTENDING PHYSICIAN STATEMENT I saw and evaluated the patient. I reviewed the resident's note and discussed the case with the resident. I agree with the resident's findings and plan as documented. SUBJECTIVE: OBJECTIVE: ASSESSMENT AND PLAN:
--- NOTE | 2020-01-03 10:36 | EKG ---
Test Reason : Blood Pressure : / mmHG Vent. Rate : 068 BPM Atrial Rate : 068 BPM P-R Int : 130 ms QRS Dur : 096 ms QT Int : 436 ms P-R-T Axes : 045 -07 040 degrees QTc Int : 463 ms NORMAL SINUS RHYTHM POSSIBLE LEFT ATRIAL ENLARGEMENT WHEN COMPARED WITH ECG OF 21-SEP-2019 15:51, NO SIGNIFICANT CHANGE WAS FOUND Confirmed by CORBIN CRAVEN MD ([id number]) on 01/03/2020 10:36:10 AM Referred By: Confirmed By:CORBIN CRAVEN MD
[2020-01-03] MEDS ORDERED: DOCUSATE SODIUM 100 MG CAPSULE (FP) PO ONE (11:33)
[2020-01-03 11:41] VITALS: TEMP 98.3
--- NOTE | 2020-01-03 14:16 | CON.ID ---
Consult - Past Medical History Cardio/Vascular: Yes: HTN, Other (cardiomegaly/pericardial effusion) Pulmonary: Yes: Other (covid pneumonitis june) Gastrointestinal: Yes: Esophageal Varices, Other (hep c/cirrhosis/varicies/splenomegaly/ascites) Hepatobiliary: Yes: Cirrhosis Infectious Disease: Yes: Other (covid 19 in june 2019) Psych: No: Addictions Musculoskeletal: Yes: Osteoarthritis Endocrine: No: Diabetes Mellitus, Hypothyroidism - Past Surgical History Past Surgical History: Yes: Colonoscopy, Upper Endoscopy - Alcohol/Substance Use Hx Alcohol Use: No History of Substance Use: reports: None - Smoking History Smoking history: Never smoked Have you smoked in the past 12 months: No - Social History Usual Living Arrangement: With Child ADL: Independent History of Recent Travel: No Home Medications - Allergies Allergies/Adverse Reactions: Allergies Allergy/AdvReac Type Severity Reaction Status Date / Time No Known Allergies Allergy Verified 01/02/20 12:03 - Home Medications Home Medications: Ambulatory Orders Amlodipine Besylate [Norvasc -] 10 mg PO DAILY #30 tablet 07/16/19 Nadolol [Corgard -] 20 mg PO DAILY #30 tablet 09/25/19 Docusate Sodium [Colace -] 100 mg PO DAILY 01/02/20 Ferrous Sulfate 325 mg PO DAILY 01/02/20 Gabapentin 300 mg PO TID 01/02/20 Vitamin B Complex 1 each PO DAILY 01/02/20 Family Medical History Family Hx Cardiac Disorders: Father ( mi age 65) Physical Exam Vital Signs: Vital Signs Temperature 98.3 F 01/03/20 09:39 Pulse Rate 74 01/03/20 09:39 Respiratory Rate 18 01/03/20 09:39 Blood Pressure 170/85 01/03/20 09:39 O2 Sat by Pulse Oximetry (%) 100 01/03/20 09:39 Labs: CBC, BMP 01/03/20 06:32 01/03/20 06:32
--- NOTE | 2020-01-03 15:37 | PN ---
Teaching Attending Note Name of Resident: Sherita Spence ATTENDING PHYSICIAN STATEMENT I saw and evaluated the patient. I reviewed the resident's note and discussed the case with the resident. I agree with the resident's findings and plan as documented. 74F with Hep C c/b cirrhosis with known esophageal varicies (s/p banding), chronic pancytopenia, splenomegaly and HTN: spleen this admission 20.7x20.3 with small amount of perisplenic ascites . Noted a splenic artery aneurysm of 3x2.7cm which is unchanged from prior admission when vascular surgery evaluated her. She presents with abd pain and decreased oral intake. Although she is pancytopenic, it seems her counts are at her baseline (WBC count baseline 1-1.4 (seen in June 2019) Hb baseline 8-9, plt count baseline 30-50k, ANC 1.2 (baseline around 1000) This is all thought to be due to her hep C and underlying cirrhosis. No acute intervention needed. She can follow with outpatient hematology for serial observation and blood work.
--- NOTE | 2020-01-03 16:30 | PN ---
Teaching Attending Note Name of Resident: Jayde Carney ATTENDING PHYSICIAN STATEMENT I saw and evaluated the patient. I reviewed the resident's note and discussed the case with the resident. I agree with the resident's findings and plan as documented. SUBJECTIVE: Patient is c/o having LUQ pain. OBJECTIVE: Vital Signs Temperature 98.3 F 01/03/20 09:39 Pulse Rate 74 01/03/20 09:39 Respiratory Rate 18 01/03/20 09:39 Blood Pressure 170/85 01/03/20 09:39 O2 Sat by Pulse Oximetry (%) 100 01/03/20 09:39 PE: per resident's note Abdomen: tender to palpation LUQ, + splenomegaly , distended. CBCD WBC 1.5 K/mm3 (4.0-10.0) L* 01/03/20 06:32 RBC 2.93 M/mm3 (3.60-5.2) L 01/03/20 06:32 Hgb 9.0 GM/dL (10.7-15.3) L 01/03/20 06:32 Hct 26.1 % (32.4-45.2) L 01/03/20 06:32 MCV 89.2 fl (80-96) 01/03/20 06:32 MCHC 34.4 g/dl (32.0-36.0) 01/03/20 06:32 RDW 17.2 % (11.6-15.6) H 01/03/20 06:32 Plt Count 33 K/MM3 (134-434) L* 01/03/20 06:32 MPV 7.4 fl (7.5-11.1) L 01/03/20 06:32 CMP Sodium 143 mmol/L (136-145) 01/03/20 06:32 Potassium 3.2 mmol/L (3.5-5.1) L 01/03/20 06:32 Chloride 111 mmol/L (98-107) H 01/03/20 06:32 Carbon Dioxide 25 mmol/L (21-32) 01/03/20 06:32 Anion Gap 7 MMOL/L (8-16) L 01/03/20 06:32 BUN 11.4 mg/dL (7-18) 01/03/20 06:32 Creatinine 0.8 mg/dL (0.55-1.3) 01/03/20 06:32 Random Glucose 91 mg/dL (74-106) 01/03/20 06:32 Calcium 7.5 mg/dL (8.5-10.1) L 01/03/20 06:32 Total Bilirubin 1.5 mg/dL (0.2-1) H 01/03/20 06:32 AST 37 U/L (15-37) 01/03/20 06:32 ALT 22 U/L (13-61) 01/03/20 06:32 Alkaline Phosphatase 115 U/L (45-117) 01/03/20 06:32 Total Protein 6.9 g/dl (6.4-8.2) 01/03/20 06:32 Albumin 2.5 g/dl (3.4-5.0) L 01/03/20 06:32 CARDIAC ENZYMES Troponin I < 0.02 ng/ml (0.00-0.05) 01/03/20 00:50 Current Medications Generic Name Dose Route Start Last Admin Trade Name Susu PRN Reason Stop Dose Admin Amlodipine Besylate 10 mg 01/03/20 10:00 01/03/20 09:42 Norvasc - PO 10 mg DAILY REIJ Administration Bacitracin 1 applic 01/03/20 10:00 01/03/20 09:41 Bacitracin - TP 1 applic DAILY REJI Administration Docusate Sodium 100 mg 01/03/20 10:00 01/03/20 11:38 Colace - PO 100 mg DAILY REJI Administration Ferrous Sulfate 325 mg 01/03/20 10:00 01/03/20 09:42 Feosol - PO 325 mg DAILY REJI Administration Nadolol 20 mg 01/03/20 10:00 01/03/20 11:38 Corgard - PO 20 mg DAILY REJI Administration Nadolol 20 mg 01/03/20 16:45 Corgard - PO DAILY REJI Pantoprazole Sodium 40 mg 01/03/20 10:00 01/03/20 09:42 Protonix - PO 40 mg DAILY REJI Administration Home Medications Medication Instructions Recorded Amlodipine Besylate [Norvasc -] 10 mg PO DAILY #30 tablet 07/16/19 Nadolol [Corgard -] 20 mg PO DAILY #30 tablet 09/25/19 Docusate Sodium [Colace -] 100 mg PO DAILY 01/02/20 Ferrous Sulfate 325 mg PO DAILY 01/02/20 Gabapentin 300 mg PO TID 01/02/20 Vitamin B Complex 1 each PO DAILY 01/02/20 CT abdomen and pelvis: hepatic cirrhosis, marked splenomegaly, varices, and small amount of ascites. 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 cholelithiasis colonic diverticulosis MULTICHANMBER cm PERICARDIAL EFFUSION ASSESSMENT AND PLAN: This patient is a 74yo botswanan speaking female with PMhx of pancytopenia, HTN, lIVER cirrhosis secondary to Hepatitis C (TREATED), pericardial effusion (ECHO 08/2019), prior esophageal varices (s/p banding ligation) presents with LEFT UPPER QUADRANT PAIN AND was admitted for acute over chronic pancytopenia and LUQ pain . #LUQ pain due to splenomegaly (splenic artery aneurysm (3 x 2.7cm on this admission CT, 3 x 2.3cm on prior CT in 08/2019): s/p cefepime. #Splenic artery aneurysm 3x 2.7cm (this admission) was 3x2.3 last admission with LUQ pain patient needs tertiary care evaluation since can rupture any minute and has Superior mesenteric thromus and cannot be AC due to acute pancytopenia with platelets level of 33K #Shortness of breath due to pericardial effusion #Hepatic cirrhosis due to hepatitis C s/p treatment #hx of esophageal varices, s/p banding. Minimal ascites again noted on CT scan. continue Nadolol #HTN: Uncontrolled due to pain most likely continue home Amlodipine, will give extra dose of nadolol DVT Px: SCDs bilateral lower extremities. Holding chemical anticoagulation given bleeding risk (thrombocytopenia) hem/vasc/id consulted will transfer the patient to a tertiary care since needs further care , since the aneurysm can rupture at any minute.
[2020-01-03] MEDS ORDERED: NADOLOL 20 MG TABLET (FP) PO ONE (16:34)
--- NOTE | 2020-01-03 16:58 | DS ---
Physical Exam: SUBJECTIVE: Patient seen and examined. Pt has persistent abdominal pain. Admits to anorexia. Pt's SOB improved. Denied having fevers or chills, vomiting or diarrhea. OBJECTIVE: Vital Signs Period Temp Pulse Resp BP Sys/Nava Pulse Ox Last 24 Hr 97.4 F-98.3 F 70-79 16-18 152-170/79-85 96-100 PHYSICAL EXAM GENERAL: Awake and alert, in mild distress, likely due to pain. HEENT: Erythematous plaques on b/l buccal mucosa, tender to touch. NCAT, EOMI. Moist mucus membranes. LUNGS: CTA b/l, no wheezes. HEART: Regular rate and rhythm, S1, S2 present. 3/6 systolic murmur on left upper sternal border. ABDOMEN: Soft, distended, diffusely tender to palpation, but most tender at LUQ. Spleen enlarged. Normoactive bowel sounds present. EXTREMITIES: Hypopigmentation of b/l ankles. 1+ pitting edema of b/l lower extremities. SKIN: Warm, dry. Ulcer on plantar surface of LLE with minimal amount of bloody discharge. LABS Laboratory Last Values WBC 1.5 K/mm3 (4.0-10.0) L* 01/03/20 06:32 RBC 2.93 M/mm3 (3.60-5.2) L 01/03/20 06:32 Hgb 9.0 GM/dL (10.7-15.3) L 01/03/20 06:32 Hct 26.1 % (32.4-45.2) L 01/03/20 06:32 MCV 89.2 fl (80-96) 01/03/20 06:32 MCH 30.6 pg (25.7-33.7) 01/03/20 06:32 MCHC 34.4 g/dl (32.0-36.0) 01/03/20 06:32 RDW 17.2 % (11.6-15.6) H 01/03/20 06:32 Plt Count 33 K/MM3 (134-434) L* 01/03/20 06:32 MPV 7.4 fl (7.5-11.1) L 01/03/20 06:32 Absolute Neuts (auto) 1.2 K/mm3 (1.5-8.0) L 01/02/20 13:00 Neutrophils % 73.3 % (42.8-82.8) 01/02/20 13:00 Neutrophils % (Manual) 75.0 % (42.8-82.8) 01/02/20 13:00 Band Neutrophils % 6.0 % 01/02/20 13:00 Lymphocytes % 13.0 % (8-40) 01/02/20 13:00 Lymphocytes % (Manual) 12.0 % (8-40) D 01/02/20 13:00 Monocytes % 9.6 % (3.8-10.2) 01/02/20 13:00 Monocytes % (Manual) 2 % (3.8-10.2) L 01/02/20 13:00 Eosinophils % 3.7 % (0-4.5) 01/02/20 13:00 Eosinophils % (Manual) 4.0 % (0-4.5) D 01/02/20 13:00 Basophils % 0.4 % (0-2.0) 01/02/20 13:00 Basophils % (Manual) 0.0 % (0-2.0) 01/02/20 13:00 Myelocytes % (Man) 1 % (0-2) D 01/02/20 13:00 Promyelocytes % (Man) 0 % (0-2) 01/02/20 13:00 Blast Cells % (Manual) 0 % (0-0) 01/02/20 13:00 Nucleated RBC % 0 % (0-0) 01/02/20 13:00 Metamyelocytes 0 % (0-2) D 01/02/20 13:00 Hypochromia 0 01/02/20 13:00 Platelet Estimate Decreased 01/02/20 13:00 Polychromasia 0 01/02/20 13:00 Poikilocytosis 1+ 01/02/20 13:00 Anisocytosis 1+ 01/02/20 13:00 Microcytosis 1+ 01/02/20 13:00 Macrocytosis 1+ 01/02/20 13:00 PT with INR 16.00 SEC (9.7-13.0) H 01/02/20 13:00 INR 1.35 (0.83-1.09) H 01/02/20 13:00 PTT (Actin FS) 40.1 SECONDS (25.2-36.5) H 01/02/20 13:00 VBG pH 7.346 (7.310-7.410) 01/02/20 13:00 POC VBG pCO2 50.3 mmHg (38-52) 01/02/20 13:00 POC VBG pO2 33.8 mmHg (28-48) 01/02/20 13:00 VBG HCO3 26.9 mmol/L (23-29) 01/02/20 13:00 VBG O2 Sat (Tomas) 61.0 % (70-80) L 01/02/20 13:00 VBG Base Excess 0.4 mmol/L (-2-2) 01/02/20 13:00 Sodium 143 mmol/L (136-145) 01/03/20 06:32 Potassium 3.2 mmol/L (3.5-5.1) L 01/03/20 06:32 Chloride 111 mmol/L (98-107) H 01/03/20 06:32 Carbon Dioxide 25 mmol/L (21-32) 01/03/20 06:32 Anion Gap 7 MMOL/L (8-16) L 01/03/20 06:32 BUN 11.4 mg/dL (7-18) 01/03/20 06:32 Creatinine 0.8 mg/dL (0.55-1.3) 01/03/20 06:32 Est GFR (CKD-EPI)AfAm 83.00 01/03/20 06:32 Est GFR (CKD-EPI)NonAf 71.61 01/03/20 06:32 Random Glucose 91 mg/dL (74-106) 01/03/20 06:32 Lactic Acid 0.7 mmol/L (0.4-2.0) 01/02/20 14:02 Calcium 7.5 mg/dL (8.5-10.1) L 01/03/20 06:32 Phosphorus 4.0 mg/dL (2.5-4.9) 01/03/20 06:32 Magnesium 1.8 mg/dL (1.8-2.4) 01/03/20 06:32 Total Bilirubin 1.5 mg/dL (0.2-1) H 01/03/20 06:32 AST 37 U/L (15-37) 01/03/20 06:32 ALT 22 U/L (13-61) 01/03/20 06:32 Alkaline Phosphatase 115 U/L (45-117) 01/03/20 06:32 Troponin I < 0.02 ng/ml (0.00-0.05) 01/03/20 00:50 Total Protein 6.9 g/dl (6.4-8.2) 01/03/20 06:32 Albumin 2.5 g/dl (3.4-5.0) L 01/03/20 06:32 Lipase 156 U/L (73-393) 01/02/20 13:00 Urine Color Yellow 01/02/20 13:00 Urine Appearance Clear 01/02/20 13:00 Urine pH 6.5 (5.0-8.0) 01/02/20 13:00 Ur Specific [place] 1.010 (1.010-1.035) 01/02/20 13:00 Urine Protein 3+ (NEGATIVE) H 01/02/20 13:00 Urine Glucose (UA) Negative (NEGATIVE) 01/02/20 13:00 Urine Ketones Negative (NEGATIVE) 01/02/20 13:00 Urine Blood 2+ (NEGATIVE) H 01/02/20 13:00 Urine Nitrite Negative (NEGATIVE) 01/02/20 13:00 Urine Bilirubin Negative (NEGATIVE) 01/02/20 13:00 Urine Urobilinogen 0.2 mg/dL (0.2-1.0) 01/02/20 13:00 Ur Leukocyte Esterase Negative (NEGATIVE) 01/02/20 13:00 Urine WBC (Auto) 25 /uL (0-25.8) 01/02/20 13:00 Urine RBC (Auto) 78 /uL (0-23.9) 01/02/20 13:00 Urine Casts (Auto) 2 /uL (0-3.1) 01/02/20 13:00 U Epithel Cells (Auto) 24 /uL (0-25.1) 01/02/20 13:00 Urine Bacteria (Auto) 54 /uL (0-1359) 01/02/20 13:00 COVID-19 (ANAIS) Not detected (Not Detected) 01/02/20 17:00 Blood Type A POSITIVE 01/02/20 15:08 Antibody Screen Positive 01/02/20 13:00 HOSPITAL COURSE: Patient is a 74 year old female with history of pancytopenia, hypertension, cirrhosis secondary to Hepatitis C (treated), COVID-19 (06/2019), pericardial effusion (ECHO 08/2019), prior esophageal varices (s/p banding ligation) presents with complaint of abdominal pain. CT A/P done, which showed increased size of splenic artery aneurysm (3 x 2.7cm). Imaging also showed evidence of hepatic cirrhosis, splenomegaly (20.7 x 20.3 x 6.7cm), varices and ascites. Pt's pain is likely due to her splenomegaly. Pt given trial of clear liquid diet. Pt was hemodynamically stable and afebrile on admission, but was given 1 dose of cefepime in the ED. Blood and urine culture negative to date. Discussed case with Radiology. Pt may need a splenectomy, but given her pancytopenia pt would require care at a tertiary center. Spoke to pt, who deferred decision to son (Fortino Perdomo [phone]) and daughter in law (Tonya [phone]). Both were in agreement to transfer to [facility]. Initiated transfer to [facility] with Dr. Gutierrez (medicine) and Dr. Lennon (surgery) as the accepting physicians. Pt is currently stable for transfer. Date of Admission:01/02/20 Date of Discharge: 01/03/20 Minutes to complete discharge: 36 Discharge Summary Problems reviewed: Yes Reason For Visit: SHORTNESS OF BREATH PANCYTOPENIA ABD PAIN Current Active Problems Cirrhosis (Acute) Condition: Guarded - Instructions Referrals: Fatou Clark MD [Primary Care Provider] - Disposition: TRANSFER ACUTE CARE/OTHER HOSP - Home Medications Comprehensive Discharge Medication List: Ambulatory Orders Amlodipine Besylate [Norvasc -] 10 mg PO DAILY #30 tablet 07/16/19 Nadolol [Corgard -] 20 mg PO DAILY #30 tablet 09/25/19 Docusate Sodium [Colace -] 100 mg PO DAILY 01/02/20 Ferrous Sulfate 325 mg PO DAILY 01/02/20 Gabapentin 300 mg PO TID 01/02/20 Vitamin B Complex 1 each PO DAILY 01/02/20 This patient is new to me today: Yes Date on this admission: 01/04/20 Emergency Visit: Yes ED Registration Date: 01/02/20 Care time: The patient presented to the Emergency Department on the above date and was hospitalized for further evaluation of their emergent condition. Critical Care patient: No - Discharge Referral Referred to [facility] No ATTENDING PHYSICIAN STATEMENT I saw and evaluated the patient. I reviewed the resident's note and discussed the case with the resident. I agree with the resident's findings and plan as documented. SUBJECTIVE: OBJECTIVE: ASSESSMENT AND PLAN:
[2020-01-03 17:50] VITALS: BP 178/72; PULSE 67
[2020-01-04] MEDS ORDERED: amLODIPine BESYLATE 5 MG TABLET (FP) PO SCH (06:27)
== END 2020-01-03 17:51 | disposition short-term general hospital (02) | DRG 663 ==
LOC: JER 11:54 → JERBED 15:31
PROVIDERS: ATTEND Internal Medicine
DX: R16.1 Splenomegaly, not elsewhere classified (principal); D61.818 Other pancytopenia; I27.20 Pulmonary hypertension, unspecified; I72.8 Aneurysm of other specified arteries; R18.8 Other ascites; I31.3 Pericardial effusion (noninflammatory); I10 Essential (primary) hypertension; K74.60 Unspecified cirrhosis of liver; K80.20 Calculus of gallbladder without cholecystitis without obstruction; K57.90 Diverticulosis of intestine, part unspecified, without perforation or abscess without bleeding; Z86.19 Personal history of other infectious and parasitic diseases; K57.30 Diverticulosis of large intestine without perforation or abscess without bleeding
CPT/HCPCS: 36415; 71045-TC-FY; 74177-TC; 76705-TC; 80053; 81003; 82803; 83605; 83690; 83735; 84100; 84484; 85025; 85027; 85610; 85730; 86850; 86870; 86900; 86901; 86902; 87040; 87086; 93005; 93010; 99285-25; C9803; Q9967; U0003